=== PATIENT | male | born 1945 | race Caucasian/White ===

== ENCOUNTER 2018-10-18 14:04 | Inpatient (IN) | payer MEDICARE ==
[2018-10-18] MEDS ORDERED: NORMAL SALINE 1000 ML 1,000 ML IV ONE (14:36)
--- NOTE | 2018-10-18 14:48 | ER Document Report ---
ED General - General Chief Complaint: Rectal Bleeding Stated Complaint: ANAL BLEEDING/POST COLONOSCOPY Time Seen by Provider: 10/18/18 14:11 Notes: 72-year-old male presents to the ER with bright red blood per rectum. The patient had a colonoscopy on Saturday by Dr. Amato. The patient was doing fine and restarted his Pradaxa for his A. fib on he began bleeding last night. He has seen his GI doctor and was sent here. The patient denies any abdominal pain. Denies chest pain denies shortness of breath. States she has had several bowel months of bright red blood per rectum. He denies dizziness nausea or weakness at this time. TRAVEL OUTSIDE OF THE [place] IN LAST 30 DAYS: No - Related Data Allergies/Adverse Reactions: No Known Allergies Allergy (Verified 10/18/18 14:05) Past Medical History - Social History Smoking Status: Unknown if Ever Smoked Family History: None Review of Systems - Review of Systems Constitutional: denies: Chills, Fever Cardiovascular: denies: Chest pain Respiratory: denies: Short of breath Gastrointestinal: Rectal bleeding. denies: Abdominal pain Genitourinary: denies: Dysuria, Hematuria -: Yes All other systems reviewed and negative Physical Exam - Vital signs Vitals: Temp Pulse Resp BP Pulse Ox 98.0 F 88 16 143/72 H 96 10/18/18 14:14 10/18/18 14:14 10/18/18 14:14 10/18/18 14:14 10/18/18 14:14 - Notes Notes: GENERAL_APPEARANCE: well_nourished, alert, cooperative VITALS: reviewed, see vital signs table. HEAD: no_swelling\tenderness on the head. EYES: PERRL, EOMI, conjunctiva_clear. NOSE: no_nasal_discharge. MOUTH: (-)decreased moisture. THROAT: no_throat inflammation, no_airway_obstruction. no_lymphadenopathy NECK: supple, no_neck_tenderness, (-)thyromegaly. BACK: no_back_tenderness. CHEST_WALL: no_chest_tenderness. LUNGS: no_wheezing, no_rales, no_rhonchi, (-)accessory muscle use, good air exchange bilateral. HEART: normal_rate, normal_rhythm, normal_S1, normal_S2, (-)S3, (-)S4, no_ murmur, no_rub. ABDOMEN: normal_BS, soft, no_abd_tenderness, (-)guarding, (-)rebound, no_ organomegaly, no_abd_masses. RECTAL: There is bright red blood noted on the patient's underwear and around the rectum no internal exam done EXTREMITIES: good pulses in all_extremities, no_swelling\tenderness in the extremities, no_edema. SKIN: warm, dry, good_color, no_rash. MENTAL_STATUS: speech_clear, oriented_X_3, normal_affect, responds_ appropriately to questions. Course - Re-evaluation Re-evalutation: 10/18/18 14:48 72-year-old male who presents with a post polypectomy bleeding. Patient has restarted his Pradaxa. Dr. Moore has called and spoke with Dr. Cortez the surgical list. Patient has arrived here we will give the patient a liter of IV fluid type and screen and check his hemoglobin I will call Dr. Cortez for further instructions. 10/18/18 15:50 Hemoglobin is stable I spoke with Dr. Cortez surgery. He will admit the patient to the hospital. Currently the patient is hemodynamically stable we will continue to monitor and trend his hemoglobins. - Vital Signs Vital signs: Temp Pulse Resp BP Pulse Ox 98.0 F 88 16 143/72 H 96 10/18/18 14:14 10/18/18 14:14 10/18/18 14:14 10/18/18 14:14 10/18/18 14:14 - Laboratory Result Diagrams: 10/18/18 14:58 10/18/18 14:58 Laboratory results interpreted by me: 10/18/18 10/18/18 10/18/18 14:58 14:58 14:58 RDW 14.6 H PT 19.0 H BUN 23 H Est GFR (Non-Af Amer) 58 L Discharge - Discharge Clinical Impression: Lower GI bleeding Condition: Fair Disposition: ADMITTED INPATIENT Admitting Provider: Surgicalist Unit Admitted: Surgical Floor Referrals: LORE CRAVEN MD [Primary Care Provider] - Follow up as needed
[2018-10-18 15:13] LABS: ABSOLUTE BASOPHILS # (AUTO) 0.1 10^3/uL (0.0-0.2); ABSOLUTE EOSINOPHILS # (AUTO) 0.1 10^3/uL (0.0-0.6); ABSOLUTE LYMPHOCYTES (AUTO) 1.7 10^3/uL (0.5-4.7); ABSOLUTE MONOCYTES (AUTO) 0.8 10^3/uL (0.1-1.4); ABSOLUTE NEUT (AUTO) 6.5 10^3/uL (1.7-8.2); BASOPHILS % (AUTO) 1.1 % (0-2); EOSINOPHILS % (AUTO) 1.2 % (0-6); HEMATOCRIT 45.5 % (37.9-51.0); HEMOGLOBIN 15.5 g/dL (13.5-17.0); LYMPHOCYTES % (AUTO) 18.7 % (13-45); MEAN CORPUSCULAR HEMOGLOBIN 30.4 pg (27.0-33.4); MEAN CORPUSCULAR HGB CONC 34.1 g/dL (32.0-36.0); MEAN CORPUSCULAR VOLUME 89 fl (80-97); MONOCYTES % (AUTO) 8.3 % (3-13); PLATELET COUNT 265 10^3/uL (150-450); RED CELL DISTRIBUTION WIDTH 14.6 % (11.5-14.0); SEGMENTED NEUTROPHILS % (AUTO) 70.7 % (42-78); TOTAL CELLS COUNTED % (AUTO) 100 %; WHITE BLOOD COUNT 9.2 10^3/uL (4.0-10.5)
[2018-10-18 15:19] LABS: INTERNATIONAL RATION (INR) 1.52
[2018-10-18 15:32] LABS: ALANINE AMINOTRANSFERASE 21 U/L (21-72); ALBUMIN 3.9 g/dL (3.5-5.0); ALKALINE PHOSPHATASE 70 U/L (38-126); ANION GAP 9 (5-19); ASPARTATE AMINO TRANSFERASE 21 U/L (17-59); BILIRUBIN,DIRECT 0.3 mg/dL (0.0-0.4); BILIRUBIN,TOTAL 0.9 mg/dL (0.2-1.3); BLOOD UREA NITROGEN 23 mg/dL (7-20); CALCIUM 9.4 mg/dL (8.4-10.2); CARBON DIOXIDE 29 mmol/L (22-30); CHLORIDE 105 mmol/L (98-107); GLUCOSE 103 mg/dL (75-110); POTASSIUM 4.5 mmol/L (3.6-5.0); SODIUM 142.7 mmol/L (137-145)
--- NOTE | 2018-10-18 15:33 | RADIOLOGY REPORT (SQ) ---
EXAM DESCRIPTION: ACUTE ABDOMEN SERIES COMPLETED DATE/TIME: 10/18/2018 3:21 pm REASON FOR STUDY: post op bleeding colonscopy COMPARISON: None. NUMBER OF VIEWS: Three views. TECHNIQUE: Frontal chest, supine abdomen and upright/decubitus abdomen radiographic images acquired. LIMITATIONS: None. FINDINGS: CHEST: Lungs clear of infiltrates. FREE AIR: None. No abnormal gas collections. BOWEL GAS PATTERN: Nonobstructive pattern. No dilated loops or air fluid levels. CALCIFICATIONS: No suspicious calcifications. HARDWARE: None in the abdomen. SOFT TISSUES: No gross mass or suggestion of organomegaly. BONES: No acute fracture. No worrisome bone lesions. OTHER: No other significant finding. IMPRESSION: NO RADIOGRAPHIC EVIDENCE FOR ACUTE ABDOMINAL DISEASE. TECHNICAL DOCUMENTATION: JOB ID: [id number] [employer]- All Rights Reserved Reading location - IP/workstation name: [email or web address]
[2018-10-18] MEDS ORDERED: DEXTROSE 50%-WATER 25 GM/50 ML DISP.SYRIN IV PRN ×2 (16:27)
[2018-10-18] MEDS ORDERED: GLUCAGON,HUMAN RECOMB 1 MG INJ SUBCUT PRN (16:27)
[2018-10-18] MEDS ORDERED: DEXTROSE 40% GEL 15 GM TUBE PO PRN ×2 (16:27)
[2018-10-18] MEDS ORDERED: NORMAL SALINE 1000 ML 1,000 ML IV PRN (16:27)
--- NOTE | 2018-10-18 16:46 | PDOC H&P ---
History of Present Illness Admission Date/PCP: 10/18/18 16:18 LORE CRAVEN MD Patient complains of: Profuse rectal bleeding status post colonoscopy. History of Present Illness: STAN SANCHEZ is a 72 year old male who is status post colonoscopy on Saturday of this past week. The patient takes Pradaxa for atrial fibrillation. The patient restarted his Pradaxa on . The patient reports a sense of fecal urgency this morning, followed by multiple, large, bloody bowel movements. The patient denies abdominal pain, nausea, vomiting, blurry vision, chest pain, shortness of breath. He does report malaise, orthostasis, fatigue, and hematochezia. The patient has had approximately 5 bloody bowel movements today. He reports they are a very large volume. Past Medical History Cardiac Medical History: Reports: Atrial Fibrillation Denies: Myocardial Infarction, Pulmonary Embolism Pulmonary Medical History: Reports: None EENT Medical History: Reports: None Neurological Medical History: Reports: None Endocrine Medical History: Reports: None Renal/ Medical History: Reports: None Malignancy Medical History: Reports: None GI Medical History: Reports: None Musculoskeltal Medical History: Reports: None Skin Medical History: Reports: None Psychiatric Medical History: Reports: None Traumatic Medical History: Reports: None Hematology: Reports: None Infectious Medical History: Reports: None Past Surgical History Past Surgical History: Reports: Other - Recent colonoscopy with polypectomy. Social History Smoking Status: Former Smoker Last Time Smoked: 27 years ago Frequency of Alcohol Use: None Drugs: None Hx Prescription Drug Abuse: No Family History Family History: None Parental Family History Reviewed: Yes Children Family History Reviewed: Yes Sibling(s) Family History Reviewed.: Yes Medication/Allergy Allergies/Adverse Reactions: No Known Allergies Allergy (Verified 10/18/18 14:05) Review of Systems Constitutional: PRESENT: fatigue, weakness. ABSENT: anorexia, chills, fever(s) Eyes: ABSENT: visual disturbances Ears: ABSENT: hearing changes Nose, Mouth, and Throat: ABSENT: sore throat Cardiovascular: ABSENT: chest pain, orthropnea, palpitations Respiratory: ABSENT: cough, dyspnea Gastrointestinal: PRESENT: hematochezia - Large volume. ABSENT: abdominal pain , nausea, vomiting Genitourinary: ABSENT: hematuria Musculoskeletal: ABSENT: back pain Integumentary: ABSENT: pruritus, rash Neurological: ABSENT: confusion, convulsions, memory loss Psychiatric: ABSENT: anxiety, depression Endocrine: ABSENT: cold intolerance, heat intolerance Hematologic/Lymphatic: PRESENT: easy bleeding, easy bruising Physical Exam Vital Signs: Temp Pulse Resp BP Pulse Ox 98.0 F 88 19 142/96 H 98 10/18/18 14:14 10/18/18 14:14 10/18/18 16:01 10/18/18 16:01 10/18/18 16:01 General appearance: PRESENT: obese Head exam: PRESENT: atraumatic, normocephalic Eye exam: PRESENT: EOMI, PERRLA. ABSENT: scleral icterus Mouth exam: PRESENT: moist, neck supple Neck exam: ABSENT: meningismus, tenderness, thyromegaly, tracheal deviation Respiratory exam: PRESENT: clear to auscultation darlene, unlabored. ABSENT: chest wall tenderness, retraction, rhonchi, tachypnea, wheezes Cardiovascular exam: PRESENT: irregular rhythm Pulses: PRESENT: normal radial pulses Vascular exam: PRESENT: pallor GI/Abdominal exam: PRESENT: soft. ABSENT: distended, rebound, rigid, tenderness Rectal exam: PRESENT: deferred Extremities exam: ABSENT: clubbing Musculoskeletal exam: ABSENT: deformity Neurological exam: PRESENT: alert, awake, oriented to person, oriented to place , oriented to time, oriented to situation, CN II-XII grossly intact Psychiatric exam: ABSENT: agitated, anxious, depressed Skin exam: ABSENT: cyanosis, erythema, jaundice Results Impressions: Acute Abdomen Series 10/18/18 14:35 IMPRESSION: NO RADIOGRAPHIC EVIDENCE FOR ACUTE ABDOMINAL DISEASE. Assessment & Plan - Diagnosis (1) Lower GI bleeding Is this a current diagnosis for this admission?: Yes - Plan Summary Plan Summary: This is a 72-year-old male with lower GI bleeding status post colonoscopy with polypectomy several days ago. The patient is currently on Pradaxa. I will hold his Pradaxa. This hospital does not keep the Pradaxa reversal agent in stock. I have recommended colonoscopy with possible intervention to halt his bleeding. If this is not successful, it is possible that the patient may require laparotomy with colon resection. This has been discussed with the patient at length. He and his are in agreement with the treatment plan. Risks/benefits discussed, informed consent obtained, and all questions answered.
[2018-10-18] MEDS ORDERED: PROPOFOL INJ 200 MG/20 ML VIAL IV ONE ×3 (17:09→18:27)
[2018-10-18] MEDS ORDERED: MESALAMINE 400 MG CAPSULE.DR PO ONE (21:00)
[2018-10-19 04:49] LABS: ABSOLUTE BASOPHILS # (AUTO) 0.1 10^3/uL (0.0-0.2); ABSOLUTE EOSINOPHILS # (AUTO) 0.1 10^3/uL (0.0-0.6); ABSOLUTE LYMPHOCYTES (AUTO) 1.2 10^3/uL (0.5-4.7); ABSOLUTE MONOCYTES (AUTO) 0.9 10^3/uL (0.1-1.4); ABSOLUTE NEUT (AUTO) 9.5 10^3/uL (1.7-8.2); BASOPHILS % (AUTO) 0.7 % (0-2); EOSINOPHILS % (AUTO) 0.6 % (0-6); HEMATOCRIT 42.1 % (37.9-51.0); HEMOGLOBIN 14.4 g/dL (13.5-17.0); LYMPHOCYTES % (AUTO) 9.9 % (13-45); MEAN CORPUSCULAR HEMOGLOBIN 30.3 pg (27.0-33.4); MEAN CORPUSCULAR HGB CONC 34.1 g/dL (32.0-36.0); MEAN CORPUSCULAR VOLUME 89 fl (80-97); MONOCYTES % (AUTO) 7.8 % (3-13); PLATELET COUNT 220 10^3/uL (150-450); RED BLOOD COUNT 4.74 10^6/uL (4.35-5.55); RED CELL DISTRIBUTION WIDTH 14.3 % (11.5-14.0); TOTAL CELLS COUNTED % (AUTO) 100 %; WHITE BLOOD COUNT 11.7 10^3/uL (4.0-10.5)
[2018-10-19 05:21] LABS: ALANINE AMINOTRANSFERASE 18 U/L (21-72); ALBUMIN 3.3 g/dL (3.5-5.0); ALKALINE PHOSPHATASE 65 U/L (38-126); ANION GAP 12 (5-19); ASPARTATE AMINO TRANSFERASE 16 U/L (17-59); BILIRUBIN,DIRECT 0.4 mg/dL (0.0-0.4); BILIRUBIN,TOTAL 1.4 mg/dL (0.2-1.3); BLOOD UREA NITROGEN 17 mg/dL (7-20); CARBON DIOXIDE 23 mmol/L (22-30); CHLORIDE 107 mmol/L (98-107); GLUCOSE 103 mg/dL (75-110); POTASSIUM 3.8 mmol/L (3.6-5.0); SODIUM 141.8 mmol/L (137-145); TOTAL PROTEIN 6.2 g/dL (6.3-8.2)
[2018-10-19] MEDS ORDERED: MESALAMINE 400 MG CAPSULE.DR PO SCH (10:00)
--- NOTE | 2018-10-19 12:31 | Operative Report ---
Nonrecallable Operative Report DATE OF SURGERY: 10/18/18 PREOPERATIVE DIAGNOSIS: Bleeding status post polypectomy 3 days ago POSTOPERATIVE DIAGNOSIS: Bleeding polypectomy site at approximately the hepatic flexure. OPERATION: 1. Colonoscopy to the cecum. 2. Cauterization of bleeding at polypectomy site. 3. Resolution clip placement x3 at bleeding polypectomy site. SURGEON: HIRO ARREDONDO ANESTHESIA: LMAC COMPLICATIONS: None apparent ESTIMATED BLOOD LOSS: Large amount of old blood in the colon PROCEDURE: Procedure in detail: After informed consent was obtained, the patient was brought to the operating room and laid in the left lateral decubitus position. The endoscope was inserted in the rectum. Immediately there was noted to be a large amount of old blood within the rectum. The scope was passed up the rectum , sigmoid colon, descending colon, across the transverse colon, down the ascending colon, and into the cecum. Usual landmarks could not be identified due to the large amount of blood and stool. The scope was then withdrawn, circumferentially noting the mucosa. At approximately the hepatic flexure a large clot was identified with active bleeding at the base. The clot was removed via irrigation and manual dislodgment. The previous polypectomy site at the hepatic flexure was bleeding at the base. The base was cauterized. Resolution clips were used x3 across the polypectomy site. This halted the bleeding. The scope was then withdrawn down the transverse colon, descending colon, sigmoid colon, and into the rectum. No other bleeding sites could be identified. The scope was removed, and the procedure was concluded. All sponge , instrument, and needle counts were correct x2. Condition: Stable.
[2018-10-19 16:05] VITALS: BP 139/72
--- NOTE | 2018-10-19 16:15 | PDOC DISCHARGE SUMMARY ---
General - Admit/Disc Date/PCP Admission Date/Primary Care Provider: 10/18/18 16:18 LORE CRAVEN MD Discharge Date: 10/19/18 - Discharge Diagnosis (1) Lower GI bleeding Is this a current diagnosis for this admission?: Yes - Additional Information Resuscitation Status: Full Code Discharge Activity: Balance Activity w/Rest Home Medications: Ascorbic Acid [Vitamin C 500 mg Tablet] 500 mg PO DAILY 10/19/18 Aspirin [Ecotrin 81 mg EC Tablet] 81 mg PO DAILY 10/19/18 Atorvastatin Calcium [Lipitor 20 mg Tablet] 20 mg PO QHS 10/19/18 Cartilage/Collagen/Bor/Hyalur [Move Free Ultra Tablet] 2 each PO DAILY 10/19/18 Cetirizine HCl [Aller-Benton] 1 tab PO DAILY 10/19/18 Cholecalciferol (Vitamin D3) [Vitamin D3 1000 Unit Tablet] 1,000 unit PO DAILY 10/19/18 Dabigatran Etexilate Mesylate [Pradaxa 150 mg Capsule] 150 mg PO Q12 10/19/18 Finasteride [Proscar] 5 mg PO DAILY 10/19/18 Flaxseed Oil [Flax Seed Oil] 1,000 mg PO DAILY 10/19/18 Fluticasone Propionate [Flonase Nasal [place] 50 Mcg/[place] 16 gm] 2 sprays NASL DAILY 10/19/18 Hydrocodone/Acetaminophen [[place] 10-325 mg Tablet] 1 tab PO DAILY 10/19/18 Losartan/Hydrochlorothiazide [Hyzaar 100-12.5 Tablet] 1 each PO DAILY 10/19/18 Melatonin/Pyridoxine HCl (B6) [Melatonin 10 mg Tablet] 1 each PO QHS 10/19/18 Multivitamin [Multiple Vitamins] 1 each PO DAILY 10/19/18 [place]-3 Fatty Acids/Fish Oil [Fish Oil 1,000 Mg Capsule] 4 each PO DAILY Omeprazole 40 mg PO DAILY 10/19/18 Tamsulosin HCl [Flomax 0.4 mg Cap.sr] 0.4 mg PO DAILY 10/19/18 History of Present Illness History of Present Illness: STAN SANCHEZ is a 72 year old male who is status post colonoscopy on Saturday of this past week. The patient takes Pradaxa for atrial fibrillation. The patient restarted his Pradaxa on . The patient reports a sense of fecal urgency Saturday morning, followed by multiple, large, bloody bowel movements. The patient denies abdominal pain, nausea, vomiting, blurry vision, chest pain, shortness of breath. He does report malaise, orthostasis, fatigue, and hematochezia. The patient has had approximately 5 bloody bowel movements on Saturday. He reports they are a very large volume. Hospital Course Hospital Course: The patient was taken to the operating room for colonoscopy with cessation of bleeding. The patient was found to have a bleeding polypectomy site at approximately the level of the hepatic flexure. The bleeding was successfully stopped. The patient did very well after the procedure. On postprocedure day # 1 the patient began tolerating a diet, ambulating, and his bleeding per rectum completely stopped. By 10/19/2018 the patient was stable, had reached maximal hospital benefit, and deemed medically fit for discharge. Physical Exam Vital Signs: Temp Pulse Resp BP Pulse Ox 97.5 F 67 18 139/72 H 98 10/19/18 15:27 10/19/18 15:27 10/19/18 15:27 10/19/18 15:27 10/19/18 15:27 Intake & Output 10/18/18 10/19/18 10/20/18 06:59 06:59 06:59 Intake Total 3050 250 Balance 3050 250 Weight 142 kg Results Laboratory Results: 10/19/18 04:00 10/19/18 04:00 10/19/18 10/19/18 04:00 04:00 WBC 11.7 H RBC 4.74 Hgb 14.4 Hct 42.1 MCV 89 MCH 30.3 MCHC 34.1 RDW 14.3 H Plt Count 220 Seg Neutrophils % 81.0 H Lymphocytes % 9.9 L Monocytes % 7.8 Eosinophils % 0.6 Basophils % 0.7 Absolute Neutrophils 9.5 H Absolute Lymphocytes 1.2 Absolute Monocytes 0.9 Absolute Eosinophils 0.1 Absolute Basophils 0.1 Sodium 141.8 Potassium 3.8 Chloride 107 Carbon Dioxide 23 Anion Gap 12 BUN 17 Creatinine 1.08 Est GFR ( Amer) > 60 Est GFR (Non-Af Amer) > 60 Glucose 103 Calcium 9.0 Total Bilirubin 1.4 H AST 16 L ALT 18 L Alkaline Phosphatase 65 Total Protein 6.2 L Albumin 3.3 L Impressions: Acute Abdomen Series 10/18/18 14:35 IMPRESSION: NO RADIOGRAPHIC EVIDENCE FOR ACUTE ABDOMINAL DISEASE. Qualifiers - * PATIENT BEING DISCHARGED WITH ANY OF THE FOLLOWING DIAGNOSIS: No Plan Time Spent: Less than 30 Minutes
[2018-10-19] MEDS ORDERED: MELATONIN PO SCH (22:00)
[2018-10-19] MEDS ORDERED: PYRIDOXINE HCL PO SCH (22:00)
[2018-10-19] MEDS ORDERED: MELATONIN 5 MG TABLET PO SCH ×2 (22:00)
[2018-10-19] MEDS ORDERED: ATORVASTATIN CALCIUM 20 MG TABLET PO SCH (22:00)
[2018-10-20] MEDS ORDERED: LANSOPRAZOLE 30 MG TAB.RAP.DR PO SCH (06:00)
[2018-10-20] MEDS ORDERED: FLUTICASONE NASAL SPRAY 50 MCG/SPRY 120 SPRAY/16 GM NASL SCH (10:00)
[2018-10-20] MEDS ORDERED: FATTY ACIDS PO SCH (10:00)
[2018-10-20] MEDS ORDERED: OMEGA-3 ACID ETHYL ESTERS 1 GM CAPSULE PO SCH (10:00)
[2018-10-20] MEDS ORDERED: FISH OIL PO SCH (10:00)
[2018-10-20] MEDS ORDERED: ASCORBIC ACID 500 MG TABLET PO SCH (10:00)
[2018-10-20] MEDS ORDERED: OMEGA PO SCH (10:00)
[2018-10-20] MEDS ORDERED: HYDROCHLOROTHIAZIDE 12.5 MG TABLET PO SCH (10:00)
[2018-10-20] MEDS ORDERED: LOSARTAN POTASSIUM 50 MG TABLET PO SCH (10:00)
[2018-10-20] MEDS ORDERED: (PENDING PHARMACY ID) (Losartan/Hydrochlorothiazide [Hyzaar 100-12.5 Tablet] 1 EACH) PO SCH (10:00)
[2018-10-20] MEDS ORDERED: TAMSULOSIN HCL 0.4 MG CAP.SR.24H PO SCH (10:00)
[2018-10-20] MEDS ORDERED: [UNRECOGNIZED DRUG - REMARK] PO SCH (10:00)
[2018-10-20] MEDS ORDERED: (PENDING PHARMACY ID) (Flaxseed Oil [Flax Seed Oil] 1,000 MG) PO SCH (10:00)
[2018-10-20] MEDS ORDERED: CHOLECALCIFEROL (D3) 1,000 UNIT TABLET PO SCH (10:00)
[2018-10-20] MEDS ORDERED: HYDROCODONE/ACETAMINOPHEN 10-325 MG TABLET PO SCH (10:00)
[2018-10-20] MEDS ORDERED: MULTIVITAMIN TABLET PO SCH (10:00)
[2018-10-20] MEDS ORDERED: CETIRIZINE 10 MG TABLET PO SCH (10:00)
[2018-10-20] MEDS ORDERED: FINASTERIDE 5 MG TABLET PO SCH (10:00)
== END 2018-10-19 16:58 | disposition home or self-care (01) | DRG 920 ==
LOC: ER 14:04 → EH 16:18 → 5 19:15
PROVIDERS: ADMIT Surgery; ATTEND Surgery
PROC: 0W3P8ZZ Control Bleeding in Gastrointestinal Tract, Via Natural or Artificial Opening Endoscopic (ICD-10-PCS; principal; 2018-10-18 18:00)
DX: K91.840 Postprocedural hemorrhage of a digestive system organ or structure following a digestive system procedure (principal); D68.32 Hemorrhagic disorder due to extrinsic circulating anticoagulants; T45.515A Adverse effect of anticoagulants, initial encounter; I48.91 Unspecified atrial fibrillation; Z79.01 Long term (current) use of anticoagulants; Z79.82 Long term (current) use of aspirin; Z79.899 Other long term (current) drug therapy; Z87.891 Personal history of nicotine dependence
CPT/HCPCS: 36415; 45382; 74022; 80053; 811; 85025; 85610; 86850; 86900; 86901; 86920; 94660; 96360; 96361; 99285; J2704; J7030

== ENCOUNTER 2018-12-25 05:31 | Inpatient (IN) | payer MEDICARE ==
[2018-12-18 10:59] LABS: HEMATOCRIT 48.4 % (37.9-51.0); HEMOGLOBIN 16.3 g/dL (13.5-17.0); MEAN CORPUSCULAR HEMOGLOBIN 29.7 pg (27.0-33.4); MEAN CORPUSCULAR HGB CONC 33.7 g/dL (32.0-36.0); MEAN CORPUSCULAR VOLUME 88 fl (80-97); PLATELET COUNT 235 10^3/uL (150-450); RED CELL DISTRIBUTION WIDTH 14.3 % (11.5-14.0); WHITE BLOOD COUNT 6.3 10^3/uL (4.0-10.5)
--- NOTE | 2018-12-18 11:21 | RADIOLOGY REPORT (SQ) ---
EXAM DESCRIPTION: CHEST PA/LATERAL COMPLETED DATE/TIME: 12/18/2018 11:04 am REASON FOR STUDY: PRE-OP COMPARISON: None. EXAM PARAMETERS: NUMBER OF VIEWS: two views TECHNIQUE: Digital Frontal and Lateral radiographic views of the chest acquired. RADIATION DOSE: NA LIMITATIONS: none FINDINGS: LUNGS AND PLEURA: No opacities, masses or pneumothorax. No pleural effusion. MEDIASTINUM AND HILAR STRUCTURES: No masses or contour abnormalities. HEART AND VASCULAR STRUCTURES: Heart normal size. No evidence for failure. BONES: No acute findings. HARDWARE: None in the chest. OTHER: No other significant finding. IMPRESSION: NO SIGNIFICANT RADIOGRAPHIC FINDING IN THE CHEST. TECHNICAL DOCUMENTATION: JOB ID: [id number] [employer]- All Rights Reserved Reading location - IP/workstation name: [email or web address]
[2018-12-18 11:28] LABS: ANION GAP 7 (5-19); BLOOD UREA NITROGEN 14 mg/dL (7-20); CALCIUM 9.6 mg/dL (8.4-10.2); CARBON DIOXIDE 29 mmol/L (22-30); CHLORIDE 103 mmol/L (98-107); GLUCOSE 131 mg/dL (75-110); SODIUM 138.9 mmol/L (137-145)
--- NOTE | 2018-12-18 23:06 | EKG REPORT ---
SEVERITY:- ABNORMAL ECG - ATRIAL FIBRILLATION, V-RATE 51-89 : Confirmed by: David Yu 18-Dec-2018 23:04:53
[~2018-12-25 05:31] MED LIST: CEFAZOLIN 2 GM/D5W RTU 2 GM/50 ML RTUPB IV PRN; CEFOXITIN SODIUM 2 GM in DEXTROSE 5%-WATER 100 ML IV PRN; IBUPROFEN 800 MG in NORMAL SALINE 250 ML IV PRN; LACTATED RINGERS 1000 ML IV PRN; LIDOCAINE 0.5% INJ-PF (5 MG/ML) 50 ML SDV SUBCUT PRN
[2018-12-25] MEDS ORDERED: CEFOXITIN INJ 1 GM VIAL ONE (05:51)
[2018-12-25 06:21] LABS: INTERNATIONAL RATION (INR) 1.26; PROTHROMBIN TIME 16.4 SEC (11.4-15.4)
[2018-12-25 06:22] LABS: PARTIAL THROMBOPLASTIN TIME 32.4 SEC (23.5-35.8)
[2018-12-25] MEDS ORDERED: BUPIVACAINE HCL 0.25 % INJ/PF (2.5 MG/1 ML) 30 ML VIAL ONE (06:24)
[2018-12-25] MEDS ORDERED: PROPOFOL INJ 200 MG/20 ML VIAL IV ONE (07:12)
[2018-12-25] MEDS ORDERED: MIDAZOLAM 2 MG/2 ML INJ ONE (07:12)
[2018-12-25] MEDS ORDERED: DEXAMETHASONE SOD PHOSPHATE INJ 4 MG/1 ML VIAL ONE (07:12)
[2018-12-25] MEDS ORDERED: LIDOCAINE 2% INJ-PF (20 MG/ML) 10 ML AMPUL ONE (07:12)
[2018-12-25] MEDS ORDERED: HYDROMORPHONE HCL INJ/PF 2 MG/ML AMPULE ONE ×3 (07:12→11:57)
[2018-12-25] MEDS ORDERED: FENTANYL CITRATE INJ/PF 250 MCG/5 ML AMPULE ONE ×2 (07:12→09:01)
[2018-12-25] MEDS ORDERED: EPHEDRINE SULFATE INJ 50 MG/1 ML AMPULE ONE (07:12)
[2018-12-25] MEDS ORDERED: ONDANSETRON HCL INJ/PF 4 MG/2 ML SDV ONE (07:12)
[2018-12-25] MEDS ORDERED: ACETAMINOPHEN 1,000 MG/100 ML RTUPB IV ONE (07:13)
[2018-12-25 07:22] LABS: POTASSIUM 4.2 mmol/L (3.6-5.0)
[2018-12-25] MEDS ORDERED: ESMOLOL HCL INJ/PF 100 MG/10 ML SDV IV ONE (08:31)
[2018-12-25] MEDS ORDERED: METOPROLOL TARTRATE PF/INJ 5 MG/5 ML SDV IV ONE ×2 (08:32→09:01)
[2018-12-25] MEDS ORDERED: LABETALOL HCL INJ 20 MG/4 ML DISP.SYRIN IV ONE (09:01)
[2018-12-25] MEDS ORDERED: BUPIVACAINE INJ/PF LIPOSOME/PF 266 MG/20 ML SDV ONE (09:19)
[2018-12-25] MEDS ORDERED: OXYCODONE-ACETAMINOPHEN 5-325 MG TABLET PO PRN ×2 (09:51)
[2018-12-25] MEDS ORDERED: PROMETHAZINE HCL INJ 25 MG/1 ML VIAL IV PRN ×2 (09:51)
[2018-12-25] MEDS ORDERED: MORPHINE SULFATE 10 MG/ML INJ IV PRN (09:51)
[2018-12-25] MEDS ORDERED: FENTANYL CITRATE INJ/PF 100 MCG/2 ML AMPUL IV PRN ×3 (09:51)
[2018-12-25] MEDS ORDERED: DIPHENHYDRAMINE HCL 50 MG/ML VIAL IV PRN (09:51)
[2018-12-25] MEDS ORDERED: ONDANSETRON HCL INJ/PF 4 MG/2 ML SDV IV PRN (09:51)
[2018-12-25] MEDS ORDERED: MEPERIDINE HCL/PF INJ 25 MG/1 ML DISP.SYRIN IV PRN (09:51)
[2018-12-25] MEDS: FENTANYL CITRATE INJ/PF 100 MCG/2 ML AMPUL ONE ×4 (11:18→11:38)
[2018-12-25] MEDS ORDERED: VECURONIUM BROMIDE INJ 10 MG VIAL IV ONE ×2 (13:42→13:46)
[2018-12-25] MEDS ORDERED: GLYCOPYRROLATE 1 MG/5 ML SYRINGE ONE ×2 (13:42→13:46)
[2018-12-25] MEDS ORDERED: SUCCINYLCHOLINE CHLORIDE INJ 200 MG/10 ML VIAL ONE (13:46)
[2018-12-25] MEDS ORDERED: NEOSTIGMINE METHYLSULFATE 10 MG/10 ML VIAL ONE (13:46)
[2018-12-25] MEDS: DEXTROSE 5%-LACTATED RINGERS 1,000 ML IV PRN (14:47)
[2018-12-25] MEDS ORDERED: CEFOXITIN SODIUM 2 GM in DEXTROSE 5%-WATER 100 ML IV SCH (16:00)
[2018-12-25] MEDS: MORPHINE SULFATE 60 MG/60 ML RTUINJ IV PRN (16:08)
[2018-12-25] MEDS: METOPROLOL TARTRATE PF/INJ 5 MG/5 ML SDV IV SCH ×2 (17:37→22:24)
[2018-12-25] MEDS: KETOROLAC TROMETHAMINE INJ/PF 30 MG/1 ML SDV IV SCH ×2 (17:38→22:24)
[2018-12-25] MEDS: ONDANSETRON HCL INJ/PF 4 MG/2 ML SDV IV PRN (20:26)
[2018-12-25] MEDS: FAMOTIDINE INJ/PF 20 MG/2 ML SDV IV SCH (22:24)
[2018-12-26] MEDS: DEXTROSE 5%-LACTATED RINGERS 1,000 ML IV PRN (01:14)
[2018-12-26] MEDS: MORPHINE SULFATE 60 MG/60 ML RTUINJ IV PRN (01:34)
[2018-12-26 05:22] LABS: ABSOLUTE LYMPHOCYTES (AUTO) 1.1 10^3/uL (0.5-4.7); ABSOLUTE MONOCYTES (AUTO) 2.1 10^3/uL (0.1-1.4); ABSOLUTE NEUT (AUTO) 14.5 10^3/uL (1.7-8.2); BASOPHILS % (AUTO) 0.1 % (0-2); HEMATOCRIT 44.2 % (37.9-51.0); HEMOGLOBIN 14.7 g/dL (13.5-17.0); LYMPHOCYTES % (AUTO) 6.2 % (13-45); MEAN CORPUSCULAR HEMOGLOBIN 29.7 pg (27.0-33.4); MEAN CORPUSCULAR HGB CONC 33.4 g/dL (32.0-36.0); MEAN CORPUSCULAR VOLUME 89 fl (80-97); MONOCYTES % (AUTO) 11.6 % (3-13); PLATELET COUNT 252 10^3/uL (150-450); RED BLOOD COUNT 4.96 10^6/uL (4.35-5.55); RED CELL DISTRIBUTION WIDTH 14.5 % (11.5-14.0); SEGMENTED NEUTROPHILS % (AUTO) 82.1 % (42-78); TOTAL CELLS COUNTED % (AUTO) 100 %; WHITE BLOOD COUNT 17.6 10^3/uL (4.0-10.5)
[2018-12-26] MEDS: KETOROLAC TROMETHAMINE INJ/PF 30 MG/1 ML SDV IV SCH (05:32)
[2018-12-26] MEDS: METOPROLOL TARTRATE PF/INJ 5 MG/5 ML SDV IV SCH ×3 (05:33→22:24)
[2018-12-26 05:42] LABS: ALANINE AMINOTRANSFERASE 29 U/L (21-72); ALBUMIN 3.5 g/dL (3.5-5.0); ALKALINE PHOSPHATASE 49 U/L (38-126); ANION GAP 6 (5-19); ASPARTATE AMINO TRANSFERASE 20 U/L (17-59); BILIRUBIN,DIRECT 0.3 mg/dL (0.0-0.4); BILIRUBIN,TOTAL 1.3 mg/dL (0.2-1.3); BLOOD UREA NITROGEN 26 mg/dL (7-20); CALCIUM 8.9 mg/dL (8.4-10.2); CARBON DIOXIDE 28 mmol/L (22-30); CHLORIDE 104 mmol/L (98-107); GLUCOSE 129 mg/dL (75-110); POTASSIUM 4.8 mmol/L (3.6-5.0); SODIUM 137.9 mmol/L (137-145); TOTAL PROTEIN 6.1 g/dL (6.3-8.2)
[2018-12-26] MEDS ORDERED: NORMAL SALINE 1000 ML 500 ML IV ONE (09:00)
[2018-12-26] MEDS ORDERED: CEFOXITIN SODIUM 2 GM in DEXTROSE 5%-WATER 100 ML IV SCH (10:00)
[2018-12-26] MEDS: ENOXAPARIN SODIUM INJ 40 MG/0.4 ML DISP.SYRIN SUBCUT SCH (11:24)
[2018-12-26] MEDS: TAMSULOSIN HCL 0.4 MG CAP.SR.24H PO SCH (11:24)
[2018-12-26] MEDS: FINASTERIDE 5 MG TABLET PO SCH (11:24)
[2018-12-26] MEDS: FAMOTIDINE INJ/PF 20 MG/2 ML SDV IV SCH ×2 (11:24→22:24)
--- NOTE | 2018-12-26 12:38 | PDOC PROGRESS REPORT ---
Subjective Progress Note for:: 12/26/18 Reason For Visit: S/P RIGHT HEMICOLECTOMY FOR COLON CANCER Physical Exam Vital Signs: Temp Pulse Resp BP Pulse Ox 98.5 F 81 16 118/57 L 94 12/26/18 07:47 12/26/18 07:47 12/26/18 07:47 12/26/18 07:47 12/26/18 07:47 Intake & Output 12/25/18 12/26/18 12/27/18 06:59 06:59 06:59 Intake Total 0 7056 Output Total 2540 Balance 0 4516 Weight 149.4 kg Results Laboratory Results: 12/26/18 04:43 12/26/18 04:43 12/26/18 12/26/18 04:43 04:43 WBC 17.6 H RBC 4.96 Hgb 14.7 Hct 44.2 MCV 89 MCH 29.7 MCHC 33.4 RDW 14.5 H Plt Count 252 Seg Neutrophils % 82.1 H Lymphocytes % 6.2 L Monocytes % 11.6 Eosinophils % 0.0 Basophils % 0.1 Absolute Neutrophils 14.5 H Absolute Lymphocytes 1.1 Absolute Monocytes 2.1 H Absolute Eosinophils 0.0 Absolute Basophils 0.0 Sodium 137.9 Potassium 4.8 Chloride 104 Carbon Dioxide 28 Anion Gap 6 BUN 26 H Creatinine 1.34 H Est GFR ( Amer) > 60 Est GFR (Non-Af Amer) 52 L Glucose 129 H Calcium 8.9 Total Bilirubin 1.3 AST 20 ALT 29 Alkaline Phosphatase 49 Total Protein 6.1 L Albumin 3.5 Impressions: Chest X-Ray 12/18/18 10:56 IMPRESSION: NO SIGNIFICANT RADIOGRAPHIC FINDING IN THE CHEST. 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 The patient is doing reasonably well today. He still complains of pain. He has not been out of bed. His urine output is reasonable. He is afebrile. His heart rate is under control. I have encouraged the patient to get out of bed with assistance. I have conveyed this to the nursing staff. Maintain Mcfarland today for strict urine output and inability to mobilize. Creatinine slightly elevated today, will stop Toradol. Continue IV Tylenol for 2 more days. Pulmonary toilet. Lovenox for DVT prophylaxis. Consider restarting anticoagulation tomorrow.
[2018-12-26] MEDS ORDERED: NORMAL SALINE 500 ML IV ONE (18:30)
[2018-12-27] MEDS: MORPHINE SULFATE 10 MG/ML INJ IV PRN ×8 (03:06→20:45)
[2018-12-27] MEDS: ONDANSETRON HCL INJ/PF 4 MG/2 ML SDV IV PRN ×2 (04:28→20:01)
[2018-12-27] MEDS: METOPROLOL TARTRATE PF/INJ 5 MG/5 ML SDV IV SCH ×3 (05:05→21:06)
[2018-12-27 05:29] LABS: ABSOLUTE LYMPHOCYTES (AUTO) 0.9 10^3/uL (0.5-4.7); ABSOLUTE MONOCYTES (AUTO) 1.1 10^3/uL (0.1-1.4); ABSOLUTE NEUT (AUTO) 14.2 10^3/uL (1.7-8.2); BASOPHILS % (AUTO) 0.2 % (0-2); EOSINOPHILS % (AUTO) 0.1 % (0-6); HEMATOCRIT 39.8 % (37.9-51.0); HEMOGLOBIN 13.2 g/dL (13.5-17.0); LYMPHOCYTES % (AUTO) 5.8 % (13-45); MEAN CORPUSCULAR HEMOGLOBIN 29.4 pg (27.0-33.4); MEAN CORPUSCULAR HGB CONC 33.1 g/dL (32.0-36.0); MEAN CORPUSCULAR VOLUME 89 fl (80-97); MONOCYTES % (AUTO) 6.5 % (3-13); PLATELET COUNT 209 10^3/uL (150-450); RED BLOOD COUNT 4.48 10^6/uL (4.35-5.55); RED CELL DISTRIBUTION WIDTH 14.5 % (11.5-14.0); SEGMENTED NEUTROPHILS % (AUTO) 87.4 % (42-78); TOTAL CELLS COUNTED % (AUTO) 100 %; WHITE BLOOD COUNT 16.3 10^3/uL (4.0-10.5)
[2018-12-27 05:51] LABS: ANION GAP 5 (5-19); BLOOD UREA NITROGEN 27 mg/dL (7-20); CALCIUM 8.6 mg/dL (8.4-10.2); CARBON DIOXIDE 29 mmol/L (22-30); CHLORIDE 105 mmol/L (98-107); GLUCOSE 113 mg/dL (75-110); POTASSIUM 4.3 mmol/L (3.6-5.0); SODIUM 139.2 mmol/L (137-145)
[2018-12-27] MEDS: DEXTROSE 5%-LACTATED RINGERS 1,000 ML IV PRN ×2 (07:00→14:55)
[2018-12-27] MEDS: ENOXAPARIN SODIUM INJ 40 MG/0.4 ML DISP.SYRIN SUBCUT SCH (09:52)
[2018-12-27] MEDS: FINASTERIDE 5 MG TABLET PO SCH (09:53)
[2018-12-27] MEDS: TAMSULOSIN HCL 0.4 MG CAP.SR.24H PO SCH (09:53)
[2018-12-27] MEDS: FAMOTIDINE INJ/PF 20 MG/2 ML SDV IV SCH ×2 (09:54→21:06)
[2018-12-27] MEDS ORDERED: DEXTROSE 40% GEL 15 GM TUBE PO PRN ×2 (19:57)
[2018-12-27] MEDS ORDERED: DEXTROSE 50%-WATER 25 GM/50 ML DISP.SYRIN IV PRN ×2 (19:57)
[2018-12-27] MEDS ORDERED: GLUCAGON,HUMAN RECOMB 1 MG INJ SUBCUT PRN (19:57)
--- NOTE | 2018-12-27 20:07 | PDOC PROGRESS REPORT ---
Subjective Reason For Visit: S/P RIGHT HEMICOLECTOMY FOR COLON CANCER Physical Exam Vital Signs: Temp Pulse Resp BP Pulse Ox 97.3 F 103 H 16 143/95 H 98 12/27/18 15:51 12/27/18 15:51 12/27/18 15:51 12/27/18 15:51 12/27/18 15:51 Intake & Output 12/26/18 12/27/18 12/28/18 06:59 06:59 06:59 Intake Total 7056 1800 2102 Output Total 2540 1050 380 Balance 4516 750 1722 Weight 149.4 kg 146 kg Results Laboratory Results: 12/27/18 04:56 12/27/18 04:56 12/27/18 12/27/18 04:56 04:56 WBC 16.3 H RBC 4.48 Hgb 13.2 L Hct 39.8 MCV 89 MCH 29.4 MCHC 33.1 RDW 14.5 H Plt Count 209 Seg Neutrophils % 87.4 H Lymphocytes % 5.8 L Monocytes % 6.5 Eosinophils % 0.1 Basophils % 0.2 Absolute Neutrophils 14.2 H Absolute Lymphocytes 0.9 Absolute Monocytes 1.1 Absolute Eosinophils 0.0 Absolute Basophils 0.0 Sodium 139.2 Potassium 4.3 Chloride 105 Carbon Dioxide 29 Anion Gap 5 BUN 27 H Creatinine 1.11 Est GFR ( Amer) > 60 Est GFR (Non-Af Amer) > 60 Glucose 113 H Calcium 8.6 Impressions: Chest X-Ray 12/18/18 10:56 IMPRESSION: NO SIGNIFICANT RADIOGRAPHIC FINDING IN THE CHEST. 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 The patient reports "heartburn" and mild nausea today. The patient denies any flatus yet. I will make him n.p.o. and await bowel function. C ontinue IV fluids. RAG WASHER was discontinued yesterday due to somnolence and low saturations. The patient's level of alertness and pulmonary toilet are much improved today. Continue as needed morphine. Out of bed, ambulate with assistance, aggressive pulmonary toilet. Repeat labs tomorrow. Chest x-ray tomorrow.
[2018-12-28] MEDS: MORPHINE SULFATE 10 MG/ML INJ IV PRN ×6 (02:11→23:00)
[2018-12-28] MEDS: DEXTROSE 5%-LACTATED RINGERS 1,000 ML IV PRN ×3 (04:17→21:11)
[2018-12-28] MEDS: METOPROLOL TARTRATE PF/INJ 5 MG/5 ML SDV IV SCH ×3 (05:27→21:05)
[2018-12-28 05:43] LABS: HEMOGLOBIN 13.5 g/dL (13.5-17.0); MEAN CORPUSCULAR HEMOGLOBIN 29.8 pg (27.0-33.4); MEAN CORPUSCULAR HGB CONC 33.7 g/dL (32.0-36.0); MEAN CORPUSCULAR VOLUME 88 fl (80-97); PLATELET COUNT 246 10^3/uL (150-450); RED BLOOD COUNT 4.52 10^6/uL (4.35-5.55); RED CELL DISTRIBUTION WIDTH 14.4 % (11.5-14.0)
[2018-12-28 06:13] LABS: ANION GAP 6 (5-19); BLOOD UREA NITROGEN 20 mg/dL (7-20); CARBON DIOXIDE 28 mmol/L (22-30); CHLORIDE 105 mmol/L (98-107); GLUCOSE 126 mg/dL (75-110); POTASSIUM 4.3 mmol/L (3.6-5.0); SODIUM 138.5 mmol/L (137-145)
[2018-12-28 06:21] LABS: ABSOLUTE LYMPHOCYTES# (MANUAL) 0.8 10^3/uL (0.5-4.7); ABSOLUTE MONOCYTES # (MANUAL) 0.5 10^3/uL (0.1-1.4); ABSOLUTE NEUTROPHILS# (MANUAL) 10.6 10^3/uL (1.7-8.2); BASOPHILS % (MANUAL) 0 % (0-2); EOSINOPHILS % (MANUAL) 1 % (0-6); LYMPHOCYTES % (MANUAL) 7 % (13-45); MONOCYTES % (MANUAL) 4 % (3-13); PLATELET COMMENT ADEQUATE; RBC MORPHOLOGY COMMENT NORMO-CYTIC/CHROMIC; SEGMENTED NEUTROPHILS % (MAN) 88 % (42-78); TOTAL CELLS COUNTED 100
--- NOTE | 2018-12-28 08:51 | RADIOLOGY REPORT (SQ) ---
EXAM DESCRIPTION: CHEST SINGLE VIEW COMPLETED DATE/TIME: 12/28/2018 8:27 am REASON FOR STUDY: cough, s/p right hemicolectomy COMPARISON: Chest films 10/18/2018, 12/18/2018 CT angio chest 03/14/2010 EXAM PARAMETERS: NUMBER OF VIEWS: One view. TECHNIQUE: Single frontal radiographic view of the chest acquired. RADIATION DOSE: NA LIMITATIONS: None. FINDINGS: LUNGS AND PLEURA: Minimal left retrocardiac airspace disease atelectasis versus pneumonia. Bandlike atelectasis along the right minor fissure. No pleural effusions or pneumothorax. MEDIASTINUM AND HILAR STRUCTURES: No masses. Contour normal. HEART AND VASCULAR STRUCTURES: Heart normal in size. Normal vasculature. BONES: No acute findings. HARDWARE: None in the chest. OTHER: No other significant finding. IMPRESSION: Minimal left retrocardiac airspace disease atelectasis versus pneumonia. TECHNICAL DOCUMENTATION: JOB ID: [id number] [employer]- All Rights Reserved Reading location - IP/workstation name: [email or web address]
[2018-12-28] MEDS: FINASTERIDE 5 MG TABLET PO SCH (11:10)
[2018-12-28] MEDS: ENOXAPARIN SODIUM INJ 40 MG/0.4 ML DISP.SYRIN SUBCUT SCH (11:10)
[2018-12-28] MEDS: TAMSULOSIN HCL 0.4 MG CAP.SR.24H PO SCH (11:10)
[2018-12-28] MEDS: PANTOPRAZOLE SODIUM 40 MG VIAL IV SCH (11:10)
[2018-12-28] MEDS: FAMOTIDINE INJ/PF 20 MG/2 ML SDV IV SCH ×2 (11:10→21:05)
[2018-12-28] MEDS ORDERED: BISACODYL 10 MG SUPP.RECT PR ONE (11:37)
--- NOTE | 2018-12-28 11:37 | PDOC PROGRESS REPORT ---
Subjective Progress Note for:: 12/28/18 Reason For Visit: S/P RIGHT HEMICOLECTOMY FOR COLON CANCER Physical Exam Vital Signs: Temp Pulse Resp BP Pulse Ox 97.7 F 90 16 144/89 H 97 12/28/18 08:26 12/28/18 08:26 12/28/18 08:26 12/28/18 08:26 12/28/18 08:26 Intake & Output 12/27/18 12/28/18 12/29/18 06:59 06:59 06:59 Intake Total 1800 3652 690 Output Total 1050 680 Balance 750 2972 690 Weight 146 kg 149.7 kg Respiratory exam: PRESENT: clear to auscultation darlene, unlabored GI/Abdominal exam: PRESENT: other - abd softly distended wound clean, dry min bowel sounds, no reports of flatus Results Laboratory Results: 12/28/18 05:13 12/28/18 05:13 12/28/18 12/28/18 05:13 05:13 WBC 12.0 H RBC 4.52 Hgb 13.5 Hct 40.0 MCV 88 MCH 29.8 MCHC 33.7 RDW 14.4 H Plt Count 246 Seg Neutrophils % Not Reportable Lymphocytes % Not Reportable Monocytes % Not Reportable Eosinophils % Not Reportable Basophils % Not Reportable Absolute Neutrophils Not Reportable Absolute Lymphocytes Not Reportable Absolute Monocytes Not Reportable Absolute Eosinophils Not Reportable Absolute Basophils Not Reportable Sodium 138.5 Potassium 4.3 Chloride 105 Carbon Dioxide 28 Anion Gap 6 BUN 20 Creatinine 0.94 Est GFR ( Amer) > 60 Est GFR (Non-Af Amer) > 60 Glucose 126 H Calcium 9.0 Impressions: Chest X-Ray 12/28/18 07:00 IMPRESSION: Minimal left retrocardiac airspace disease atelectasis versus pneumonia. 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 sitting up in chair c/o bloating, some nausea, no vomiting wbc down to 12 this am lytes ok cxr question of atelectasis vs early left pnemonia reviwed by me, more c/w atelectasis plan cont npo except sips dulcolax suppositiory encouraged to ambulate with walker explained if he has nausea or vomiting or significant reflux, may need ng tube
[2018-12-28] MEDS: ONDANSETRON HCL INJ/PF 4 MG/2 ML SDV IV PRN (21:11)
[2018-12-29] MEDS: METOPROLOL TARTRATE PF/INJ 5 MG/5 ML SDV IV SCH ×3 (05:09→21:40)
[2018-12-29] MEDS: ONDANSETRON HCL INJ/PF 4 MG/2 ML SDV IV PRN ×5 (05:12→21:40)
[2018-12-29] MEDS: MORPHINE SULFATE 10 MG/ML INJ IV PRN ×4 (05:35→23:48)
[2018-12-29 05:49] LABS: ABSOLUTE LYMPHOCYTES (AUTO) 0.6 10^3/uL (0.5-4.7); ABSOLUTE MONOCYTES (AUTO) 1.6 10^3/uL (0.1-1.4); ABSOLUTE NEUT (AUTO) 8.6 10^3/uL (1.7-8.2); BASOPHILS % (AUTO) 0.2 % (0-2); EOSINOPHILS % (AUTO) 0.2 % (0-6); HEMATOCRIT 40.4 % (37.9-51.0); HEMOGLOBIN 13.9 g/dL (13.5-17.0); LYMPHOCYTES % (AUTO) 5.8 % (13-45); MEAN CORPUSCULAR HEMOGLOBIN 30.2 pg (27.0-33.4); MEAN CORPUSCULAR HGB CONC 34.4 g/dL (32.0-36.0); MEAN CORPUSCULAR VOLUME 88 fl (80-97); MONOCYTES % (AUTO) 14.7 % (3-13); PLATELET COUNT 260 10^3/uL (150-450); RED BLOOD COUNT 4.59 10^6/uL (4.35-5.55); RED CELL DISTRIBUTION WIDTH 14.2 % (11.5-14.0); SEGMENTED NEUTROPHILS % (AUTO) 79.1 % (42-78); TOTAL CELLS COUNTED % (AUTO) 100 %; WHITE BLOOD COUNT 10.9 10^3/uL (4.0-10.5)
[2018-12-29 06:15] LABS: ANION GAP 7 (5-19); BLOOD UREA NITROGEN 18 mg/dL (7-20); CALCIUM 8.6 mg/dL (8.4-10.2); CARBON DIOXIDE 30 mmol/L (22-30); CHLORIDE 105 mmol/L (98-107); GLUCOSE 118 mg/dL (75-110); POTASSIUM 3.8 mmol/L (3.6-5.0); SODIUM 141.6 mmol/L (137-145)
--- NOTE | 2018-12-29 08:18 | PDOC PROGRESS REPORT ---
Subjective Reason For Visit: S/P RIGHT HEMICOLECTOMY FOR COLON CANCER Physical Exam Vital Signs: Temp Pulse Resp BP Pulse Ox 98.2 F 104 H 18 154/85 H 98 12/29/18 03:44 12/29/18 07:00 12/29/18 03:44 12/29/18 03:44 12/29/18 03:44 Intake & Output 12/28/18 12/29/18 12/30/18 06:59 06:59 06:59 Intake Total 3652 1690 Output Total 680 975 Balance 2972 715 Weight 149.7 kg 148.9 kg Results Laboratory Results: 12/29/18 05:25 12/29/18 05:25 12/29/18 12/29/18 05:25 05:25 WBC 10.9 H RBC 4.59 Hgb 13.9 Hct 40.4 MCV 88 MCH 30.2 MCHC 34.4 RDW 14.2 H Plt Count 260 Seg Neutrophils % 79.1 H Lymphocytes % 5.8 L Monocytes % 14.7 H Eosinophils % 0.2 Basophils % 0.2 Absolute Neutrophils 8.6 H Absolute Lymphocytes 0.6 Absolute Monocytes 1.6 H Absolute Eosinophils 0.0 Absolute Basophils 0.0 Sodium 141.6 Potassium 3.8 Chloride 105 Carbon Dioxide 30 Anion Gap 7 BUN 18 Creatinine 0.98 Est GFR ( Amer) > 60 Est GFR (Non-Af Amer) > 60 Glucose 118 H Calcium 8.6 Impressions: Chest X-Ray 12/28/18 07:00 IMPRESSION: Minimal left retrocardiac airspace disease atelectasis versus pneumonia. 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 The patient reports some nausea this morning, relieved by antinausea medications. He is passing flatus today. I have encouraged him to ambulate and use his incentive spirometer. Hopefully his bowel function will increase, and his nausea will dec rease. Once his nausea is resolved, I will restart his diet. No fevers, no uncontrolled pain. Incision is clean and dry. I will restart his blood thinners once he is taking p.o. reliably. Continue Lovenox for DVT prophylaxis.
--- NOTE | 2018-12-29 09:48 | Operative Report ---
Nonrecallable Operative Report DATE OF SURGERY: 12/25/18 PREOPERATIVE DIAGNOSIS: Colon cancer in the vicinity of the hepatic flexure. POSTOPERATIVE DIAGNOSIS: Same as above OPERATION: Laparoscopic converted to open right hemicolectomy for colon cancer. SURGEON: HIRO ARREDONDO 1ST CLIENT SERVER PROGRAMMER: BRITTANY PEDROZA ANESTHESIA: GA TISSUE REMOVED OR ALTERED: Right hemicolectomy COMPLICATIONS: Patient unable to tolerate pneumoperitoneum, therefore an open approach was preferred. ESTIMATED BLOOD LOSS: 100 cc PROCEDURE: Drains/implants: None. Procedure in detail: After informed consent was obtained, the patient was brought into the operating room and laid in the supine position. The area of t he abdomen was prepped and draped in a normal sterile fashion. A supraumbilical incision was created with a 15 blade scalpel. It was deepened to the use of sharp and blunt dissection. The cicatrix was identified, grasped with a Montserrat clamp, and retracted upwards. The linea alba fascia was incised sharply, the abdomen was entered sharply. The balloon trocar was inserted, and pneumoperitoneum was achieved. A right upper quadrant 5 mm port, lower midline 5 mm port, and left lower quadrant 12 mm port were placed under direct laparoscopic visualization. The patient was then moved into the Trendelenburg position with tilt toward the left. The patient's heart rate became erratic as did his blood pressure. Pneumoperitoneum was immediately relieved, and his position was returned to the supine state. This resolved his heart rate and blood pressure issues. I conferred with anesthesia, and the conclusion was to abort the laparoscopic approach in favor of an open approach. Pneumoperitoneum was again achieved in order to close the left lower quadrant defect. This was closed using 0 Vicryl suture in [id number] fashion with the use of the Endo Close device. All the trochars were then removed, and pneumoperitoneum was relieved. A midline laparotomy incision was then created with a 15 blade scalpel. The Omni retractor was brought onto the field and used to retract the abdominal wall and viscera. The dissection was begun at the ileocolic artery. It was dissected free. It was ligated with an 0 Vicryl suture ligation. Above the suture ligation, the LigaSure was used to cauterize and divide the artery. The mesentery was divided infero-laterally, toward the terminal ileum. The terminal ileum was divided using a KENNEDY-75 stapler. Next, the right colon was freed from the surrounding tissue. The white line of Toldt was divided using electrocautery. The mesentery was elevated away from the retroperitoneum. The mesentery was divided cranially using the LigaSure device. This was done taking great care not to injure the duodenum or middle colic artery. The previous tattoo was found in the hepatic flexure. As the colon was rotated medially, the omentum was freed from the transverse colon. An area greater than 5 cm was chosen distal to the tattoo. This was divided using the KENNEDY-75 stapler. The specimen was then passed off the field and sent to pathology. Next, the terminal ileum was brought in apposition to the transverse colon. It was oriented such that no kinking was found in the small intestine. A stapled, oekq-wr-xnep anastomosis was then created with the KENNEDY-75 stapler. 2 crotch stitches of 3-0 Vicryl were placed. The resultant defect was closed, again using the KENNEDY-75 stapler. The anastomosis was inspected and tested. It was found to be free of any leakage. The abdomen was then washed with copious amounts of warm saline. Attention was then turned to closure. A TAP block was then created with Marcaine. The midline fascia was closed using #1, double-stranded PDS suture in simple running fashion. The overlying skin was closed using skin donnell. A dressing was fashioned, and the procedure was concluded. All sponge, instrument, and needle counts were correct x2. Condition: Stable. Brittany Pedroza PA-C was scrubbed and present the entirety of the procedure. She assisted with all portions of the procedure including placement of the trochars, opening of the abdomen, removal of the colon, creation of the anastomosis, closure of the fascia, and closure of the skin.
[2018-12-29] MEDS: FAMOTIDINE INJ/PF 20 MG/2 ML SDV IV SCH ×2 (10:43→21:40)
[2018-12-29] MEDS: FINASTERIDE 5 MG TABLET PO SCH (10:45)
[2018-12-29] MEDS: TAMSULOSIN HCL 0.4 MG CAP.SR.24H PO SCH (10:47)
[2018-12-29] MEDS: ENOXAPARIN SODIUM INJ 40 MG/0.4 ML DISP.SYRIN SUBCUT SCH (10:48)
[2018-12-29] MEDS: DEXTROSE 5%-LACTATED RINGERS 1,000 ML IV PRN ×2 (10:53→19:39)
[2018-12-29] MEDS: PANTOPRAZOLE SODIUM 40 MG VIAL IV SCH (12:39)
--- NOTE | 2018-12-29 16:18 | Progress Note ---
Provider Note Provider Note: Re-evaluated pt this afternoon. He is passing flatus. He denies nausea today. He has been walking today. He is asking for liquids. I will advance him to a full liquid diet. I have encouraged him to start slow. I will reassess him tomorrow and possibly advance his diet.
[2018-12-29] MEDS ORDERED: PROMETHAZINE HCL INJ 25 MG/1 ML VIAL ONE (18:13)
[2018-12-29] MEDS ORDERED: PROMETHAZINE HCL INJ 25 MG/1 ML VIAL IV ONE (18:45)
[2018-12-30] MEDS: ONDANSETRON HCL INJ/PF 4 MG/2 ML SDV IV PRN ×3 (05:52→15:41)
[2018-12-30] MEDS: METOPROLOL TARTRATE PF/INJ 5 MG/5 ML SDV IV SCH ×2 (05:52→15:42)
--- NOTE | 2018-12-30 09:10 | PDOC PROGRESS REPORT ---
Subjective Progress Note for:: 12/30/18 Reason For Visit: S/P RIGHT HEMICOLECTOMY FOR COLON CANCER Physical Exam Vital Signs: Temp Pulse Resp BP Pulse Ox 99.1 F 85 18 139/82 H 97 12/30/18 07:33 12/30/18 07:33 12/30/18 07:33 12/30/18 07:33 12/30/18 07:33 Intake & Output 12/29/18 12/30/18 12/31/18 06:59 06:59 06:59 Intake Total 1690 2237 Output Total 975 650 Balance 715 1587 Weight 148.9 kg 146.8 kg Results Laboratory Results: 12/29/18 05:25 12/29/18 05:25 Impressions: Chest X-Ray 12/28/18 07:00 IMPRESSION: Minimal left retrocardiac airspace disease atelectasis versus pneumonia. 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 The patient continues to pass flatus, however he does experience intermittent nausea (no vomiting). Last night, the patient was made n.p.o. Plan for abdominal x-rays today. The patient has not had a bowel movement yet. The patient should continue with ambulation and pulmonary toilet. No fevers or chills.
[2018-12-30] MEDS: TAMSULOSIN HCL 0.4 MG CAP.SR.24H PO SCH (10:24)
[2018-12-30] MEDS: FAMOTIDINE INJ/PF 20 MG/2 ML SDV IV SCH (10:24)
[2018-12-30] MEDS: FINASTERIDE 5 MG TABLET PO SCH (10:24)
[2018-12-30] MEDS: PANTOPRAZOLE SODIUM 40 MG VIAL IV SCH (10:25)
--- NOTE | 2018-12-30 10:30 | RADIOLOGY REPORT (SQ) ---
EXAM DESCRIPTION: ABDOMEN 2 VIEWS COMPLETED DATE/TIME: 12/30/2018 9:35 am REASON FOR STUDY: flat and upright. Nausea s/p surgery. C18.2 MALIGNANT NEOPLASM OF ASCENDING COLON COMPARISON: None. NUMBER OF VIEWS: One view. TECHNIQUE: Supine radiographic image of the abdomen acquired. LIMITATIONS: None. FINDINGS: BOWEL GAS PATTERN: Mildly dilated loops of small bowel diffusely. Gas and fecal material in the colon. CALCIFICATIONS: No suspicious calcifications. SOFT TISSUES: No gross mass or suggestion of organomegaly. HARDWARE: Midline skin donnell. BONES: No acute fracture. No worrisome bone lesions. OTHER: No other significant finding. IMPRESSION: Postop ileus. Follow-up is recommended to exclude developing small bowel obstruction. TECHNICAL DOCUMENTATION: JOB ID: [id number] [employer]- All Rights Reserved Reading location - IP/workstation name: [email or web address]
[2018-12-30] MEDS: ENOXAPARIN SODIUM INJ 40 MG/0.4 ML DISP.SYRIN SUBCUT SCH (10:31)
[2018-12-30] MEDS: MORPHINE SULFATE 10 MG/ML INJ IV PRN ×2 (11:05→15:41)
[2018-12-30] MEDS: DEXTROSE 5%-LACTATED RINGERS 1,000 ML IV PRN (15:48)
[2018-12-30] MEDS: OXYCODONE-ACETAMINOPHEN 5-325 MG TABLET PO PRN (20:17)
[2018-12-30] MEDS: ONDANSETRON 4 MG TAB.RAPDIS PO PRN (20:19)
[2018-12-31] MEDS: ONDANSETRON 4 MG TAB.RAPDIS PO PRN ×5 (03:53→21:29)
[2018-12-31] MEDS: OXYCODONE-ACETAMINOPHEN 5-325 MG TABLET PO PRN ×5 (03:53→21:28)
[2018-12-31] MEDS: LANSOPRAZOLE 30 MG TAB.RAP.DR PO SCH (05:44)
[2018-12-31 09:15] LABS: ANION GAP 6 (5-19); BLOOD UREA NITROGEN 17 mg/dL (7-20); CALCIUM 8.2 mg/dL (8.4-10.2); CARBON DIOXIDE 29 mmol/L (22-30); CHLORIDE 103 mmol/L (98-107); GLUCOSE 76 mg/dL (75-110); POTASSIUM 3.5 mmol/L (3.6-5.0); SODIUM 138.2 mmol/L (137-145)
[2018-12-31] MEDS: FINASTERIDE 5 MG TABLET PO SCH (10:52)
[2018-12-31] MEDS: TAMSULOSIN HCL 0.4 MG CAP.SR.24H PO SCH (10:52)
[2018-12-31] MEDS: ENOXAPARIN SODIUM INJ 40 MG/0.4 ML DISP.SYRIN SUBCUT SCH (10:52)
--- NOTE | 2018-12-31 12:53 | PDOC PROGRESS REPORT ---
Subjective Progress Note for:: 12/31/18 Reason For Visit: S/P RIGHT HEMICOLECTOMY FOR COLON CANCER Physical Exam Vital Signs: Temp Pulse Resp BP Pulse Ox 97.8 F 112 H 16 147/87 H 97 12/31/18 11:41 12/31/18 11:41 12/31/18 11:41 12/31/18 11:41 12/31/18 11:41 Intake & Output 12/30/18 12/31/18 01/01/19 06:59 06:59 06:59 Intake Total 2237 3405 Output Total 650 950 Balance 1587 2455 Weight 146.8 kg 147.2 kg Results Laboratory Results: 12/29/18 05:25 12/31/18 08:40 12/31/18 08:40 Sodium 138.2 Potassium 3.5 L Chloride 103 Carbon Dioxide 29 Anion Gap 6 BUN 17 Creatinine 0.93 Est GFR ( Amer) > 60 Est GFR (Non-Af Amer) > 60 Glucose 76 Calcium 8.2 L Impressions: Chest X-Ray 12/28/18 07:00 IMPRESSION: Minimal left retrocardiac airspace disease atelectasis versus pneumonia. Abdomen X-Ray 12/30/18 06:00 IMPRESSION: Postop ileus. Follow-up is recommended to exclude developing small bowel obstruction. 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 The patient is doing well today. He denies any vomiting. He is tolerating full liquids. Patient reports that he is passing a large amount of flatus. The patient has not had a bowel movement yet. Continue with ambulation and incentive spiromet er. Awaiting improvement of his bowel function to advance diet. Lab work shows hypokalemia, I will replace his potassium today.
[2018-12-31] MEDS: POTASSIUM CHLORIDE 10 MEQ CAPSULE.ER PO SCH ×2 (13:06→21:21)
--- NOTE | 2018-12-31 17:47 | PDOC PROGRESS REPORT ---
Subjective Progress Note for:: 12/31/18 Subjective:: Called by nurse because incision drained and soaked a gauze from lowe incision after patient had shower. Reason For Visit: S/P RIGHT HEMICOLECTOMY FOR COLON CANCER Physical Exam Vital Signs: Temp Pulse Resp BP Pulse Ox 98.4 F 102 H 14 145/89 H 96 12/31/18 15:18 12/31/18 15:18 12/31/18 15:18 12/31/18 15:18 12/31/18 15:18 Intake & Output 12/30/18 12/31/18 01/01/19 06:59 06:59 06:59 Intake Total 2237 3405 300 Output Total 650 950 Balance 1587 2455 300 Weight 146.8 kg 147.2 kg Exam: Distal 3 donnell removed and small amount of non foul smelling drainage noted. C/S obtained. Appears localized. Subcu fat probed with a q-tip to fascia that felt intact. Results Laboratory Results: 12/29/18 05:25 12/31/18 08:40 12/31/18 08:40 Sodium 138.2 Potassium 3.5 L Chloride 103 Carbon Dioxide 29 Anion Gap 6 BUN 17 Creatinine 0.93 Est GFR ( Amer) > 60 Est GFR (Non-Af Amer) > 60 Glucose 76 Calcium 8.2 L Impressions: Chest X-Ray 12/28/18 07:00 IMPRESSION: Minimal left retrocardiac airspace disease atelectasis versus pneumonia. Abdomen X-Ray 12/30/18 06:00 IMPRESSION: Postop ileus. Follow-up is recommended to exclude developing small bowel obstruction. Assessment & Plan - Time Time Spent with patient: 15-24 minutes - Plan Summary Plan Summary: Wound gently packed with one 4x4. C/S sent Start po Cipro Will inform Dr Cortez in am.
[2019-01-01] MEDS: OXYCODONE-ACETAMINOPHEN 5-325 MG TABLET PO PRN ×3 (01:38→11:14)
[2019-01-01] MEDS: ONDANSETRON 4 MG TAB.RAPDIS PO PRN ×3 (01:38→11:14)
[2019-01-01 05:32] LABS: ABSOLUTE EOSINOPHILS # (AUTO) 0.1 10^3/uL (0.0-0.6); ABSOLUTE LYMPHOCYTES (AUTO) 0.9 10^3/uL (0.5-4.7); ABSOLUTE MONOCYTES (AUTO) 1.4 10^3/uL (0.1-1.4); ABSOLUTE NEUT (AUTO) 8.8 10^3/uL (1.7-8.2); BASOPHILS % (AUTO) 0.2 % (0-2); EOSINOPHILS % (AUTO) 1.1 % (0-6); HEMATOCRIT 38.6 % (37.9-51.0); MEAN CORPUSCULAR HEMOGLOBIN 29.1 pg (27.0-33.4); MEAN CORPUSCULAR HGB CONC 33.5 g/dL (32.0-36.0); MEAN CORPUSCULAR VOLUME 87 fl (80-97); MONOCYTES % (AUTO) 12.3 % (3-13); PLATELET COUNT 281 10^3/uL (150-450); RED BLOOD COUNT 4.46 10^6/uL (4.35-5.55); RED CELL DISTRIBUTION WIDTH 14.4 % (11.5-14.0); SEGMENTED NEUTROPHILS % (AUTO) 78.4 % (42-78); TOTAL CELLS COUNTED % (AUTO) 100 %; WHITE BLOOD COUNT 11.3 10^3/uL (4.0-10.5)
[2019-01-01] MEDS: LANSOPRAZOLE 30 MG TAB.RAP.DR PO SCH (05:41)
[2019-01-01 05:54] LABS: ANION GAP 8 (5-19); BLOOD UREA NITROGEN 15 mg/dL (7-20); CALCIUM 8.2 mg/dL (8.4-10.2); CARBON DIOXIDE 28 mmol/L (22-30); CHLORIDE 103 mmol/L (98-107); GLUCOSE 83 mg/dL (75-110); SODIUM 138.8 mmol/L (137-145)
[2019-01-01] MEDS: TAMSULOSIN HCL 0.4 MG CAP.SR.24H PO SCH (09:42)
[2019-01-01] MEDS: ENOXAPARIN SODIUM INJ 40 MG/0.4 ML DISP.SYRIN SUBCUT SCH (09:42)
[2019-01-01] MEDS: FINASTERIDE 5 MG TABLET PO SCH (09:42)
--- NOTE | 2019-01-01 11:20 | RADIOLOGY REPORT (SQ) ---
EXAM DESCRIPTION: CT ABD/PELVIS WITH IV ORAL COMPLETED DATE/TIME: 01/01/2019 10:56 am REASON FOR STUDY: s/p right hemicolectomy. persistent nausea and vom C18.2 MALIGNANT NEOPLASM OF CENDING COLON COMPARISON: Abdominal films 12/30/2018, 10/18/2018 CT abdomen pelvis 03/19/2013 TECHNIQUE: CT scan of the abdomen and pelvis performed using helical scanning technique with dynamic intravenous contrast injection. Patient drank oral contrast, vomited up most of the oral contrast. Images reviewed with lung, soft tissue, and bone windows. Reconstructed coronal and sagittal MPR imag es reviewed. Delayed images for evaluation of the urinary system also acquired. All images stored on PACS. All CT scanners at this facility use dose modulation, iterative reconstruction, and/or weight based d osing when appropriate to reduce radiation dose to as low as reasonably achievable (ALARA). [facility]: Dose Right [facility]: CareDose [facility]: Dose Right [facility]: Teradose 4D [facility]: Jogli CONTRAST TYPE AND DOSE: contrast/concentration: Isovue 350.00 mg/ml; Total Contrast Delivered: 100.0 ml; Total Saline Delivered: 72.0 ml RENAL FUNCTION: Creatinine 1.0 RADIATION DOSE: CT Rad equipment meets quality standard of care and radiation dose reduction techniq ues were employed. CTDIvol: 26.0 - 30.2 mGy. DLP: 3324 mGy-cm.. LIMITATIONS: None. FINDINGS: Patient is post right hemicolectomy with [id number] anastomosis between the distal ileum and proximal transverse colon. Dehiscence of the staple line along the oversewn proximal end of the colon is present on coronal images 47-63, with a pocket of extraluminal air adjacent to the oversewn colon end, measuring about 5 cm in diameter. No loculated abscess. Small amount of right pericolic gutter free fluid. Findings called to Dr. Haddad, 1110 hours 01/01/2019. LOWER CHEST: There is bibasilar atelectasis and trace right pleural effusion. LIVER: Normal size. No masses. No dilated ducts. SPLEEN: Normal size. No focal lesions. PANCREAS: No masses. No significant calcifications. No adjacent inflammation or peripancreatic fluid collections. Pancreatic duct not dilated. GALLBLADDER: No identified stones by CT criteria. No inflammatory changes to suggest cholecystitis. ADRENAL GLANDS: No significant masses or asymmetry. RIGHT KIDNEY AND URETER: No solid masses. Multiple right renal cortical cysts. No significant calci fications. No hydronephrosis or hydroureter. LEFT KIDNEY AND URETER: No solid masses. Multiple left renal cortical cysts. No significant calcifi cations. No hydronephrosis or hydroureter. AORTA AND VESSELS: No aneurysm. No dissection. Renal arteries, SMA, celiac without stenosis. RETROPERITONEUM: No retroperitoneal adenopathy, hemorrhage or masses. BOWEL AND PERITONEAL CAVITY: As above APPENDIX: Surgically absent PELVIS: No mass. Trace cul-de-sac free fluid. Normal bladder. ABDOMINAL WALL: No masses. No hernias. Anterior abdominal wall incision with gauze packing BONES: No significant or acute findings. OTHER: No other significant finding. IMPRESSION: Leakage of air into the mesenteric fat adjacent to the ileocolic anastomosis. Small sujit unt of right pericolic gutter and pelvis free fluid. Diffuse distention of stomach and small bowel, likely ileus rather than obstruction. COMMENT: Pertinent findings on the imaging study reported as a CRITICAL RESULT to HIRO ARREDONDO MD at11:14 on 01/01/2019. Category of Critical Result: Free air from anastomotic leak TECHNICAL DOCUMENTATION: JOB ID: [id number] Quality ID # [id number]: Final reports with documentation of one or more dose reduction techniques (e.g., Au tomated exposure control, adjustment of the mA and/or kV according to patient size, use of iterative reconstruction technique) 2010 [employer]- All Rights Reserved Reading location - IP/workstation name: [email or web address]
[2019-01-01] MEDS: PROMETHAZINE HCL INJ 25 MG/1 ML VIAL IV PRN (15:50)
--- NOTE | 2019-01-01 16:37 | PDOC PROGRESS REPORT ---
Subjective Reason For Visit: S/P RIGHT HEMICOLECTOMY FOR COLON CANCER Physical Exam Vital Signs: Temp Pulse Resp BP Pulse Ox 98.3 F 113 H 22 H 133/71 H 98 01/01/19 11:48 01/01/19 14:00 01/01/19 11:48 01/01/19 11:48 01/01/19 11:48 Intake & Output 12/31/18 01/01/19 01/02/19 06:59 06:59 06:59 Intake Total 3405 1435 Output Total 950 450 Balance 2455 985 Weight 147.2 kg Results Laboratory Results: 01/01/19 04:54 01/01/19 04:54 01/01/19 01/01/19 04:54 04:54 WBC 11.3 H RBC 4.46 Hgb 13.0 L Hct 38.6 MCV 87 MCH 29.1 MCHC 33.5 RDW 14.4 H Plt Count 281 Seg Neutrophils % 78.4 H Lymphocytes % 8.0 L Monocytes % 12.3 Eosinophils % 1.1 Basophils % 0.2 Absolute Neutrophils 8.8 H Absolute Lymphocytes 0.9 Absolute Monocytes 1.4 Absolute Eosinophils 0.1 Absolute Basophils 0.0 Sodium 138.8 Potassium 4.0 Chloride 103 Carbon Dioxide 28 Anion Gap 8 BUN 15 Creatinine 1.00 Est GFR ( Amer) > 60 Est GFR (Non-Af Amer) > 60 Glucose 83 Calcium 8.2 L Impressions: Chest X-Ray 12/28/18 07:00 IMPRESSION: Minimal left retrocardiac airspace disease atelectasis versus pneumonia. Abdomen X-Ray 12/30/18 06:00 IMPRESSION: Postop ileus. Follow-up is recommended to exclude developing small bowel obstruction. Abdomen/Pelvis CT 01/01/19 00:00 IMPRESSION: Leakage of air into the mesenteric fat adjacent to the ileocolic anastomosis. Small amount of right pericolic gutter and pelvis free fluid. Diffuse distention of stomach and small bowel, likely ileus rather than o bstruction. 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 The pt continues to pass flatus. The pt reported nausea and several episodes of vomiting this morning. Due to that finding, a CT scan was obtained to rule-out an obstruction. I have reviewed the CT images and the report. There is a collection of air in the area of the ileocolic anastomosis. It does appear to be contained. This could be residual from surgery, or represent a contained leak. At present the pt is afebrile, n ormotensive, denies significant abdominal discomfort, displays no tachycardia, and has normal electrolytes. I have discussed this finding with the patient and his family. At this time the patient would like to avoid re-exploration with diverting ileostomy. I believe this is reasonable. I have recommended very close observation with repeat labs and possibly a repeat CT in 24-48 hrs. If there is any sign of decompensation, the patient will require exploration and diverting ileostomy. Start antibiotics. NG tube to assist with nausea and vomiting.
[2019-01-01] MEDS: MORPHINE SULFATE 10 MG/ML INJ IV PRN (16:55)
[2019-01-01] MEDS: CIPROFLOXACIN 400 MG/D5W RTU 400 MG/200 ML RTUPB IV SCH (18:30)
[2019-01-01] MEDS: POTASSI CL 20 MEQ/D5-1/2NS 1L 1,000 ML IV PRN (20:22)
[2019-01-01] MEDS: METRONIDAZOLE 500 MG/NS RTU 500 MG/100 ML RTUPB IV SCH (22:43)
[2019-01-01] MEDS: PANTOPRAZOLE SODIUM 40 MG VIAL IV SCH (22:43)
[2019-01-02] MEDS: MORPHINE SULFATE 10 MG/ML INJ IV PRN (02:53)
[2019-01-02] MEDS: PROMETHAZINE HCL INJ 25 MG/1 ML VIAL IV PRN ×2 (02:58→15:40)
[2019-01-02 05:33] LABS: ABSOLUTE EOSINOPHILS # (AUTO) 0.1 10^3/uL (0.0-0.6); ABSOLUTE LYMPHOCYTES (AUTO) 0.9 10^3/uL (0.5-4.7); ABSOLUTE MONOCYTES (AUTO) 1.2 10^3/uL (0.1-1.4); ABSOLUTE NEUT (AUTO) 12.5 10^3/uL (1.7-8.2); BASOPHILS % (AUTO) 0.3 % (0-2); EOSINOPHILS % (AUTO) 0.9 % (0-6); MEAN CORPUSCULAR HEMOGLOBIN 29.2 pg (27.0-33.4); MEAN CORPUSCULAR HGB CONC 33.5 g/dL (32.0-36.0); MEAN CORPUSCULAR VOLUME 87 fl (80-97); PLATELET COUNT 348 10^3/uL (150-450); RED BLOOD COUNT 4.47 10^6/uL (4.35-5.55); RED CELL DISTRIBUTION WIDTH 14.7 % (11.5-14.0); SEGMENTED NEUTROPHILS % (AUTO) 84.8 % (42-78); TOTAL CELLS COUNTED % (AUTO) 100 %; WHITE BLOOD COUNT 14.7 10^3/uL (4.0-10.5)
[2019-01-02 05:54] LABS: ANION GAP 9 (5-19); BLOOD UREA NITROGEN 15 mg/dL (7-20); CALCIUM 8.1 mg/dL (8.4-10.2); CARBON DIOXIDE 25 mmol/L (22-30); CHLORIDE 104 mmol/L (98-107); GLUCOSE 93 mg/dL (75-110); POTASSIUM 3.8 mmol/L (3.6-5.0); SODIUM 137.5 mmol/L (137-145)
[2019-01-02] MEDS: CIPROFLOXACIN 400 MG/D5W RTU 400 MG/200 ML RTUPB IV SCH ×2 (06:07→17:00)
[2019-01-02] MEDS: METRONIDAZOLE 500 MG/NS RTU 500 MG/100 ML RTUPB IV SCH ×3 (07:21→21:05)
--- NOTE | 2019-01-02 09:01 | RADIOLOGY REPORT (SQ) ---
EXAM DESCRIPTION: KUB/ABDOMEN (SINGLE VIEW) COMPLETED DATE/TIME: 01/02/2019 8:52 am REASON FOR STUDY: nausea vomiting C18.2 MALIGNANT NEOPLASM OF ASCENDING COLON COMPARISON: 12/30/2018 NUMBER OF VIEWS: One view. TECHNIQUE: Supine radiographic image of the abdomen acquired. LIMITATIONS: None. FINDINGS: BOWEL GAS PATTERN: There is persistent small-bowel distention. Largest diameter is approx imately 6 cm. This is slightly increased in size from prior study. Colonic air is basically unchang ed. This most likely represents postoperative ileus although partial small bowel obstruction is poss ible. CALCIFICATIONS: No suspicious calcifications. SOFT TISSUES: No gross mass or suggestion of organomegaly. HARDWARE: There are surgical clips left of midline. BONES: No acute fracture. No worrisome bone lesions. OTHER: No other significant finding. IMPRESSION: Slight increase in the amount of small-bowel distention described. There is persistent colonic air. This most likely represents postoperative ileus although early or partial small bowel o bstruction are considerations. TECHNICAL DOCUMENTATION: JOB ID: [id number] [employer]- All Rights Reserved Reading location - IP/workstation name: [email or web address]
[2019-01-02] MEDS: FINASTERIDE 5 MG TABLET PO SCH (11:26)
[2019-01-02] MEDS: TAMSULOSIN HCL 0.4 MG CAP.SR.24H PO SCH (11:26)
[2019-01-02] MEDS: ENOXAPARIN SODIUM INJ 40 MG/0.4 ML DISP.SYRIN SUBCUT SCH (11:29)
[2019-01-02] MEDS: PANTOPRAZOLE SODIUM 40 MG VIAL IV SCH ×2 (11:46→21:04)
--- NOTE | 2019-01-02 12:10 | PDOC PROGRESS REPORT ---
Subjective Progress Note for:: 01/02/19 Reason For Visit: S/P RIGHT HEMICOLECTOMY FOR COLON CANCER Physical Exam Vital Signs: Temp Pulse Resp BP Pulse Ox 98.1 F 96 18 140/79 H 96 01/02/19 11:10 01/02/19 11:10 01/02/19 11:10 01/02/19 11:10 01/02/19 11:10 Intake & Output 01/01/19 01/02/19 01/03/19 06:59 06:59 06:59 Intake Total 1435 567 300 Output Total 450 2250 Balance 985 -1683 300 Weight 147.7 kg Results Laboratory Results: 01/02/19 04:59 01/02/19 04:59 01/02/19 01/02/19 04:59 04:59 WBC 14.7 H RBC 4.47 Hgb 13.0 L Hct 39.0 MCV 87 MCH 29.2 MCHC 33.5 RDW 14.7 H Plt Count 348 Seg Neutrophils % 84.8 H Lymphocytes % 6.0 L Monocytes % 8.0 Eosinophils % 0.9 Basophils % 0.3 Absolute Neutrophils 12.5 H Absolute Lymphocytes 0.9 Absolute Monocytes 1.2 Absolute Eosinophils 0.1 Absolute Basophils 0.0 Sodium 137.5 Potassium 3.8 Chloride 104 Carbon Dioxide 25 Anion Gap 9 BUN 15 Creatinine 0.78 Est GFR ( Amer) > 60 Est GFR (Non-Af Amer) > 60 Glucose 93 Calcium 8.1 L Impressions: Chest X-Ray 12/28/18 07:00 IMPRESSION: Minimal left retrocardiac airspace disease atelectasis versus pn eumonia. Abdomen X-Ray 12/30/18 06:00 IMPRESSION: Postop ileus. Follow-up is recommended to exclude developing small bowel obstruction. Abdomen/Pelvis CT 01/01/19 00:00 IMPRESSION: Leakage of air into the mesenteric fat adjacent to the ileocolic anastomosis. Small amount of right pericolic gutter and pelvis free fluid. Diffuse distention of stomach and small bowel, likely ileus rather than obstruction. KUB X-Ray 01/02/19 06:00 IMPRESSION: Slight increase in the amount of small-bowel distention described. There is persistent colonic air. This most likely represents postoperative ileus although early or partial small bowel obstruction are considerations. 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 The patient has a persistent ileus after surgery. The patient is still passing flatus, however his NG tube still is productive of bilious fluid. Patient was found to have air in the area of the anastomosis on CT scan yesterday. The patient has remained afebrile overnight. He does not have tachycardia or hypotension. He reports that his abdominal pain is less severe today. The patient's white blood cell count has elevated to 14,000 today. I have discussed the plan with both patient and his daughter at length. Plan for repeat noncontrasted CT scan tomorrow to evaluate for abscess formation or dissemination of the small amount of intra- abdominal air. KUB today shows no large amount of free intraperitoneal air. Continue antibiotics. The patient and his family are in agreement with the treatment plan.
[2019-01-02] MEDS: POTASSI CL 20 MEQ/D5-1/2NS 1L 1,000 ML IV PRN (13:10)
--- NOTE | 2019-01-02 18:29 | Progress Note ---
Provider Note Provider Note: Pt re-evaluated. He denies pain or fevers. Continues to pass flatus. Normotensive. No tachycardia. Cont abx. Repeat CT and labs tomorrow.
[2019-01-02] MEDS: ONDANSETRON HCL INJ/PF 4 MG/2 ML SDV IV PRN (19:33)
[2019-01-03] MEDS: POTASSI CL 20 MEQ/D5-1/2NS 1L 1,000 ML IV PRN ×3 (03:06→14:16)
[2019-01-03] MEDS: PHENOL/SODIUM PHENOLATE 100 SPRAY/177 ML BOTTLE PO PRN ×2 (04:12→05:09)
[2019-01-03] MEDS: METRONIDAZOLE 500 MG/NS RTU 500 MG/100 ML RTUPB IV SCH ×3 (05:04→22:31)
[2019-01-03 05:16] LABS: ABSOLUTE BASOPHILS # (AUTO) 0.1 10^3/uL (0.0-0.2); ABSOLUTE EOSINOPHILS # (AUTO) 0.1 10^3/uL (0.0-0.6); ABSOLUTE LYMPHOCYTES (AUTO) 0.9 10^3/uL (0.5-4.7); ABSOLUTE MONOCYTES (AUTO) 1.3 10^3/uL (0.1-1.4); ABSOLUTE NEUT (AUTO) 11.4 10^3/uL (1.7-8.2); BASOPHILS % (AUTO) 0.4 % (0-2); EOSINOPHILS % (AUTO) 0.8 % (0-6); HEMOGLOBIN 12.9 g/dL (13.5-17.0); LYMPHOCYTES % (AUTO) 6.7 % (13-45); MEAN CORPUSCULAR HEMOGLOBIN 29.3 pg (27.0-33.4); MEAN CORPUSCULAR VOLUME 86 fl (80-97); MONOCYTES % (AUTO) 9.3 % (3-13); PLATELET COUNT 340 10^3/uL (150-450); RED CELL DISTRIBUTION WIDTH 14.6 % (11.5-14.0); SEGMENTED NEUTROPHILS % (AUTO) 82.8 % (42-78); TOTAL CELLS COUNTED % (AUTO) 100 %; WHITE BLOOD COUNT 13.7 10^3/uL (4.0-10.5)
[2019-01-03 05:40] LABS: ANION GAP 7 (5-19); BLOOD UREA NITROGEN 14 mg/dL (7-20); CALCIUM 7.9 mg/dL (8.4-10.2); CARBON DIOXIDE 27 mmol/L (22-30); CHLORIDE 104 mmol/L (98-107); GLUCOSE 109 mg/dL (75-110); POTASSIUM 3.7 mmol/L (3.6-5.0); SODIUM 138.2 mmol/L (137-145)
[2019-01-03] MEDS: CIPROFLOXACIN 400 MG/D5W RTU 400 MG/200 ML RTUPB IV SCH ×2 (06:04→17:45)
[2019-01-03] MEDS ORDERED: CALCIUM GLUCONATE 2,000 MG in DEXTROSE 5%-WATER 100 ML IV ONE ×2 (07:01→10:00)
[2019-01-03] MEDS: ONDANSETRON HCL INJ/PF 4 MG/2 ML SDV IV PRN ×2 (07:53→12:33)
--- NOTE | 2019-01-03 08:43 | RADIOLOGY REPORT (SQ) ---
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 Images reviewed with lung, soft tissue, and bone windows. Reconstructed coronal and sagittal MPR images revi ewed. All images stored on PACS. All CT scanners at this facility use dose modulation, iterative reconstruction, and/or weight based d osing when appropriate to reduce radiation dose to as low as reasonably achievable (ALARA). [facility]: Dose Right [facility]: CareDose [facility]: Dose Right [facility]: Teradose 4D [facility]: Smart Nut[employer]ures RADIATION DOSE: CT Rad equipment meets quality standard of care and radiation dose reduction techniq ues were employed. CTDIvol: 20.9 mGy. DLP: 1324 mGy-cm.mGy. LIMITATIONS: None. FINDINGS: LOWER CHEST: Stable right pleural effusion. Minimal left effusion. NON-CONTRASTED LIVER, SPLEEN, ADRENALS: Evaluation limited by lack of IV contrast. No identified sign ificant masses. PANCREAS: No masses. No peripancreatic inflammatory changes. GALLBLADDER: No identified stones by CT criteria. No inflammatory changes to suggest cholecystitis. RIGHT KIDNEY AND URETER: Well circumscribed low density mass(es) statistically most likely to be cyst (s). Assessment limited by lack of iv contrast. No significant calcifications. No hydronephrosis or hydroureter. LEFT KIDNEY AND URETER: Well circumscribed low density mass(es) statistically most likely to be cyst( s). Assessment limited by lack of iv contrast. No significant calcifications. No hydronephrosis o r hydroureter. AORTA AND RETROPERITONEUM: No aneurysm. No retroperitoneal masses or adenopathy. BOWEL AND PERITONEAL CAVITY: Air collection at the anastomotic site slightly smaller than previous. Now measures 4 cm. No generalize free air. Resolution of the small bowel dilatation. APPENDIX: Surgically absent. PELVIS, BLADDER, AND ABDOMINAL WALL:No abnormal masses. No free fluid. Bladder normal. Resolution of wound dehiscence. BONES: No significant findings. OTHER: No other significant finding. IMPRESSION: Pocket of air adjacent to the surgical anastomosis is smaller than previous. There is n o generalize free air. Improved appearance of the small bowel loops. COMMENT: Quality ID # [id number]: Final reports with documentation of one or more dose reduction techniques (e.g., Automated exposure control, adjustment of the mA and/or kV according to patient size, use of iterative reconstruction technique) TECHNICAL DOCUMENTATION: JOB ID: [id number] [employer]- All Rights Reserved Reading location - IP/workstation name: [email or web address]
[2019-01-03] MEDS: TAMSULOSIN HCL 0.4 MG CAP.SR.24H PO SCH (09:54)
[2019-01-03] MEDS: FINASTERIDE 5 MG TABLET PO SCH (09:55)
--- NOTE | 2019-01-03 10:45 | PDOC PROGRESS REPORT ---
Subjective Progress Note for:: 01/03/19 Reason For Visit: S/P RIGHT HEMICOLECTOMY FOR COLON CANCER Physical Exam Vital Signs: Temp Pulse Resp BP Pulse Ox 98.7 F 95 20 144/80 H 95 01/03/19 07:29 01/03/19 07:29 01/03/19 07:29 01/03/19 07:29 01/03/19 07:29 Intake & Output 01/02/19 01/03/19 01/04/19 06:59 06:59 06:59 Intake Total 567 2761 200 Output Total 2250 1928 Balance -1683 833 200 Weight 147.7 kg 147.1 kg Results Laboratory Results: 01/03/19 04:38 01/03/19 04:38 01/03/19 01/03/19 04:38 04:38 WBC 13.7 H RBC 4.40 Hgb 12.9 L Hct 38.0 MCV 86 MCH 29.3 MCHC 34.0 RDW 14.6 H Plt Count 340 Seg Neutrophils % 82.8 H Lymphocytes % 6.7 L Monocytes % 9.3 Eosinophils % 0.8 Basophils % 0.4 Absolute Neutrophils 11.4 H Absolute Lymphocytes 0.9 Absolute Monocytes 1.3 Absolute Eosinophils 0.1 Absolute Basophils 0.1 Sodium 138.2 Potassium 3.7 Chloride 104 Carbon Dioxide 27 Anion Gap 7 BUN 14 Creatinine 0.89 Est GFR ( Amer) > 60 Est GFR (Non-Af Amer) > 60 Glucose 109 Calcium 7.9 L Impressions: Chest X-Ray 12/28/18 07:00 IMPRESSION: Minimal left retrocardiac airspace disease atelectasis versus pneumonia. Abdomen X-Ray 12/30/18 06:00 IMPRESSION: Postop ileus. Follow-up is recommended to exclude developing small bowel obstruction. KUB X-Ray 01/02/19 06:00 IMPRESSION: Slight increase in the amount of small-bowel distention described. There is persistent colonic air. This most likely represents postoperative ileus although early or partial small bowel obstruction are considerations. Abdomen/Pelvis CT 01/03/19 08:00 IMPRESSION: Pocket of air adjacent to the surgical anastomosis is smaller than previous. There is no generalize free air. Improved appearance of the small bowel loops. 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 Pt feels better today. NG remains in-place. Still passing large amount of flatus per pt report. Long discussion held with the pt and his family regarding care plan. After reviewing all possible options, they are in agreement with continuation of conservative management with bowel rest and IV abx. CT reviewed by me. Amount of perianastomotic air decreased, with no fluid present. WBC's improved today. Afebrile. --> Repeat labs tomorrow. Pt is now POD #9 and still has an NG. I have recommended initiation of TPN to assist with nutrition. The pt has agreed to this
[2019-01-03] MEDS ORDERED: DEXTROSE 10%-WATER 1,000 ML IV PRN (11:30)
--- NOTE | 2019-01-03 11:45 | Operative Report ---
Nonrecallable Operative Report DATE OF SURGERY: 01/03/19 PREOPERATIVE DIAGNOSIS: colon cancer, malnutrition, adynamic ileus POSTOPERATIVE DIAGNOSIS: same as above OPERATION: 1. ultrasound guided central venous puncture. 2. left IJ central line placement. SURGEON: HIRO ARREDONDO ANESTHESIA: Local TISSUE REMOVED OR ALTERED: none COMPLICATIONS: none apparent ESTIMATED BLOOD LOSS: minimal PROCEDURE: implants: left IF c-line at 15 cm Procedure in detail: After informed consent was obtained, the pt was laid in the trendelenburg position. The left IJ was visualized with the ultrasound. It was compressible with normal flow. Under direct ultrasound guidance, the left IJ was canulated. Dark, venous, nonpulsatile blood was returned in the syringe. The wire was inserted easily. The catheter was inserted over the wire without difficulty using a modified Seldinger technique. The catheter was situated at 15cm at the skin. The catheter aspirated and flushed easily x3. The catheter was sutured to the skin with 3-0 silk suture. A sterile dressing was placed, and the procedure was concluded. All sponge. instrument, and needle counts were correct. Condition: fair.
[2019-01-03] MEDS: PANTOPRAZOLE SODIUM 40 MG VIAL IV SCH ×2 (12:02→22:30)
[2019-01-03] MEDS: ENOXAPARIN SODIUM INJ 40 MG/0.4 ML DISP.SYRIN SUBCUT SCH (12:02)
--- NOTE | 2019-01-03 12:07 | RADIOLOGY REPORT (SQ) ---
EXAM DESCRIPTION: CHEST SINGLE VIEW COMPLETED DATE/TIME: 01/03/2019 11:56 am REASON FOR STUDY: central line placement COMPARISON: 12/28/2018 EXAM PARAMETERS: NUMBER OF VIEWS: One view. TECHNIQUE: Single frontal radiographic view of the chest acquired. RADIATION DOSE: NA LIMITATIONS: None. FINDINGS: LUNGS AND PLEURA: Persistent left basilar opacity consistent with pneumonia. Right lung i s clear. No pneumothorax. MEDIASTINUM AND HILAR STRUCTURES: No masses. Contour normal. HEART AND VASCULAR STRUCTURES: Heart normal in size. Normal vasculature. BONES: No acute findings. HARDWARE: Nasogastric tube tip in the stomach. Venous access catheter via left IJ approach. Tip at the cavoatrial junction. OTHER: No other significant finding. IMPRESSION: Persistent left basilar pneumonitis. Venous access catheter tip at the cavoatrial junction. Nasogastric tube in expected location. TECHNICAL DOCUMENTATION: JOB ID: [id number] [employer]- All Rights Reserved Reading location - IP/workstation name: [email or web address]
[2019-01-03] MEDS: MORPHINE SULFATE 10 MG/ML INJ IV PRN (12:32)
[2019-01-03] MEDS: AMINO ACIDS 5 %/DEXTROSE 20 % 1,000 ML IV PRN (17:45)
[2019-01-03 18:45] LABS: HEMATOCRIT 37.5 % (37.9-51.0); HEMOGLOBIN 12.6 g/dL (13.5-17.0); MEAN CORPUSCULAR HGB CONC 33.6 g/dL (32.0-36.0); MEAN CORPUSCULAR VOLUME 86 fl (80-97); PLATELET COUNT 338 10^3/uL (150-450); RED BLOOD COUNT 4.35 10^6/uL (4.35-5.55); RED CELL DISTRIBUTION WIDTH 14.6 % (11.5-14.0); WHITE BLOOD COUNT 13.6 10^3/uL (4.0-10.5)
[2019-01-03 18:51] LABS: INTERNATIONAL RATION (INR) 1.53; PROTHROMBIN TIME 19.1 SEC (11.4-15.4)
[2019-01-03 18:59] LABS: ALANINE AMINOTRANSFERASE 55 U/L (21-72); ALBUMIN 2.6 g/dL (3.5-5.0); ALKALINE PHOSPHATASE 75 U/L (38-126); ANION GAP 7 (5-19); ASPARTATE AMINO TRANSFERASE 46 U/L (17-59); BILIRUBIN,DIRECT 0.4 mg/dL (0.0-0.4); BILIRUBIN,TOTAL 0.9 mg/dL (0.2-1.3); BLOOD UREA NITROGEN 11 mg/dL (7-20); CALCIUM 8.1 mg/dL (8.4-10.2); CARBON DIOXIDE 28 mmol/L (22-30); CHLORIDE 104 mmol/L (98-107); GLUCOSE 101 mg/dL (75-110); PHOSPHORUS 3.8 mg/dL (2.5-4.5); POTASSIUM 3.5 mmol/L (3.6-5.0); SODIUM 138.9 mmol/L (137-145); TOTAL PROTEIN 5.2 g/dL (6.3-8.2); TRIGLYCERIDES 85 mg/dL (<150)
[2019-01-04] MEDS: MORPHINE SULFATE 10 MG/ML INJ IV PRN ×2 (03:38→09:35)
[2019-01-04] MEDS: ONDANSETRON HCL INJ/PF 4 MG/2 ML SDV IV PRN ×3 (03:38→18:13)
[2019-01-04 05:02] LABS: ABSOLUTE BASOPHILS # (AUTO) 0.1 10^3/uL (0.0-0.2); ABSOLUTE EOSINOPHILS # (AUTO) 0.2 10^3/uL (0.0-0.6); ABSOLUTE LYMPHOCYTES (AUTO) 1.2 10^3/uL (0.5-4.7); ABSOLUTE MONOCYTES (AUTO) 1.3 10^3/uL (0.1-1.4); ABSOLUTE NEUT (AUTO) 10.2 10^3/uL (1.7-8.2); BASOPHILS % (AUTO) 0.8 % (0-2); EOSINOPHILS % (AUTO) 1.3 % (0-6); HEMATOCRIT 37.5 % (37.9-51.0); HEMOGLOBIN 12.6 g/dL (13.5-17.0); MEAN CORPUSCULAR HEMOGLOBIN 29.1 pg (27.0-33.4); MEAN CORPUSCULAR HGB CONC 33.6 g/dL (32.0-36.0); MEAN CORPUSCULAR VOLUME 87 fl (80-97); MONOCYTES % (AUTO) 9.8 % (3-13); PLATELET COUNT 352 10^3/uL (150-450); RED BLOOD COUNT 4.33 10^6/uL (4.35-5.55); RED CELL DISTRIBUTION WIDTH 14.7 % (11.5-14.0); SEGMENTED NEUTROPHILS % (AUTO) 79.1 % (42-78); TOTAL CELLS COUNTED % (AUTO) 100 %; WHITE BLOOD COUNT 12.9 10^3/uL (4.0-10.5)
[2019-01-04 05:23] LABS: ALANINE AMINOTRANSFERASE 51 U/L (21-72); ALBUMIN 2.5 g/dL (3.5-5.0); ALKALINE PHOSPHATASE 74 U/L (38-126); ANION GAP 8 (5-19); ASPARTATE AMINO TRANSFERASE 41 U/L (17-59); BILIRUBIN,DIRECT 0.3 mg/dL (0.0-0.4); BILIRUBIN,TOTAL 0.8 mg/dL (0.2-1.3); BLOOD UREA NITROGEN 11 mg/dL (7-20); CARBON DIOXIDE 27 mmol/L (22-30); CHLORIDE 105 mmol/L (98-107); GLUCOSE 107 mg/dL (75-110); POTASSIUM 3.4 mmol/L (3.6-5.0); SODIUM 140.2 mmol/L (137-145); TOTAL PROTEIN 5.2 g/dL (6.3-8.2)
[2019-01-04 05:31] LABS: PREALBUMIN 7.1 mg/dL (17.6-36.0)
[2019-01-04] MEDS: CIPROFLOXACIN 400 MG/D5W RTU 400 MG/200 ML RTUPB IV SCH ×2 (05:57→17:29)
[2019-01-04] MEDS: METRONIDAZOLE 500 MG/NS RTU 500 MG/100 ML RTUPB IV SCH ×3 (05:58→21:08)
--- NOTE | 2019-01-04 07:05 | RADIOLOGY REPORT (SQ) ---
CLINICAL HISTORY: verify ngt placement COMPARISON: None. TECHNIQUE: XR CHEST 1 VIEW 01/04/2019 12:00 AM [employer] FINDINGS: Cardiac silhouette is normal in size. Lungs are clear without consolidation, atelectasis, mass or edema. There is no pleural effusion. There is no pneumothorax. There are no acute osseous findings. NG tube tip is in the stomach. IMPRESSION: NG tube tip in the stomach.
[2019-01-04] MEDS: PANTOPRAZOLE SODIUM 40 MG VIAL IV SCH (09:36)
[2019-01-04] MEDS: ENOXAPARIN SODIUM INJ 40 MG/0.4 ML DISP.SYRIN SUBCUT SCH (09:36)
[2019-01-04] MEDS: FINASTERIDE 5 MG TABLET PO SCH (09:43)
[2019-01-04] MEDS: TAMSULOSIN HCL 0.4 MG CAP.SR.24H PO SCH (09:43)
[2019-01-04] MEDS: POTASSI CL 20 MEQ/D5-1/2NS 1L 1,000 ML IV PRN (10:24)
--- NOTE | 2019-01-04 11:39 | PDOC PROGRESS REPORT ---
Subjective Progress Note for:: 01/04/19 Reason For Visit: S/P RIGHT HEMICOLECTOMY FOR COLON CANCER Physical Exam Vital Signs: Temp Pulse Resp BP Pulse Ox 97.9 F 93 18 146/85 H 97 01/04/19 07:56 01/04/19 07:56 01/04/19 07:56 01/04/19 07:56 01/04/19 07:56 Intake & Output 01/03/19 01/04/19 01/05/19 06:59 06:59 06:59 Intake Total 2761 3040 97 Output Total 1928 1350 Balance 833 1690 97 Weight 147.1 kg 144.1 kg Results Laboratory Results: 01/04/19 04:40 01/04/19 04:40 01/03/19 01/03/19 01/04/19 18:20 18:20 04:40 WBC 13.6 H 12.9 H RBC 4.35 4.33 L Hgb 12.6 L 12.6 L Hct 37.5 L 37.5 L MCV 86 87 MCH 29.0 29.1 MCHC 33.6 33.6 RDW 14.6 H 14.7 H Plt Count 338 352 Seg Neutrophils % 79.1 H Lymphocytes % 9.0 L Monocytes % 9.8 Eosinophils % 1.3 Basophils % 0.8 Absolute Neutrophils 10.2 H Absolute Lymphocytes 1.2 Absolute Monocytes 1.3 Absolute Eosinophils 0.2 Absolute Basophils 0.1 Sodium 138.9 Potassium 3.5 L Chloride 104 Carbon Dioxide 28 Anion Gap 7 BUN 11 Creatinine 0.99 Est GFR ( Amer) > 60 Est GFR (Non-Af Amer) > 60 Glucose 101 Calcium 8.1 L Phosphorus 3.8 Magnesium 1.9 Total Bilirubin 0.9 AST 46 ALT 55 Alkaline Phosphatase 75 Total Protein 5.2 L Albumin 2.6 L Prealbumin 7.0 L Triglycerides 85 01/04/19 04:40 WBC RBC Hgb Hct MCV MCH MCHC RDW Plt Count Seg Neutrophils % Lymphocytes % Monocytes % Eosinophils % Basophils % Absolute Neutrophils Absolute Lymphocytes Absolute Monocytes Absolute Eosinophils Absolute Basophils Sodium 140.2 Potassium 3.4 L Chloride 105 Carbon Dioxide 27 Anion Gap 8 BUN 11 Creatinine 0.91 Est GFR ( Amer) > 60 Est GFR (Non-Af Amer) > 60 Glucose 107 Calcium 8.0 L Phosphorus Magnesium Total Bilirubin 0.8 AST 41 ALT 51 Alkaline Phosphatase 74 Total Protein 5.2 L Albumin 2.5 L Prealbumin 7.1 L Triglycerides Impressions: Abdomen X-Ray 12/30/18 06:00 IMPRESSION: Postop ileus. Follow-up is recommended to exclude developing small bowel obstruction. KUB X-Ray 01/02/19 06:00 IMPRESSION: Slight increase in the amount of small-bowel distention described. There is persistent colonic air. This most likely represents postoperative ileus although early or partial small bowel obstruction are considerations. Abdomen/Pelvis CT 01/03/19 08:00 IMPRESSION: Pocket of air adjacent to the surgical anastomosis is smaller than previous. There is no generalize free air. Improved appearance of the small bowel loops. Chest X-Ray 01/04/19 00:00 IMPRESSION: NG tube tip in the stomach. 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 Pt feels better again today. NG remains in-place (output appears clear and nonbilious). Still passing flatus per pt report. Afebrile. Leukocytosis improving. Will try to clamp NG today in an attempt to move toward PO intake. Pt is agreeable to this. I have instructed him to notify the nursing staff if he develops nausea. MRSA growing from wound culture isolate. Start IV clindamycin. Cont ambulation and pulmonary toilet. Cont dressing changes for local wound care --> still with seropurulent drainage, no alfreda pus. Cont TPN
[2019-01-04] MEDS: CLINDAMYCIN 900 MG/D5W RTU 900 MG/50 ML RTUPB IV SCH ×2 (13:20→21:08)
[2019-01-04] MEDS: AMINO ACIDS 5 %/DEXTROSE 20 % 1,000 ML IV PRN (17:29)
[2019-01-05] MEDS: CLINDAMYCIN 900 MG/D5W RTU 900 MG/50 ML RTUPB IV SCH (05:14)
[2019-01-05] MEDS: CIPROFLOXACIN 400 MG/D5W RTU 400 MG/200 ML RTUPB IV SCH ×2 (05:14→18:44)
[2019-01-05] MEDS: METRONIDAZOLE 500 MG/NS RTU 500 MG/100 ML RTUPB IV SCH ×2 (05:15→17:01)
[2019-01-05 05:53] LABS: INTERNATIONAL RATION (INR) 1.49; PROTHROMBIN TIME 18.8 SEC (11.4-15.4)
[2019-01-05 05:59] LABS: HEMOGLOBIN 12.1 g/dL (13.5-17.0); MEAN CORPUSCULAR HEMOGLOBIN 29.4 pg (27.0-33.4); MEAN CORPUSCULAR HGB CONC 33.7 g/dL (32.0-36.0); MEAN CORPUSCULAR VOLUME 87 fl (80-97); PLATELET COUNT 342 10^3/uL (150-450); RED BLOOD COUNT 4.12 10^6/uL (4.35-5.55); RED CELL DISTRIBUTION WIDTH 14.9 % (11.5-14.0); WHITE BLOOD COUNT 13.1 10^3/uL (4.0-10.5)
[2019-01-05 06:03] LABS: ALANINE AMINOTRANSFERASE 45 U/L (21-72); ALBUMIN 2.5 g/dL (3.5-5.0); ALKALINE PHOSPHATASE 66 U/L (38-126); ANION GAP 7 (5-19); ASPARTATE AMINO TRANSFERASE 25 U/L (17-59); BILIRUBIN,DIRECT 0.2 mg/dL (0.0-0.4); BILIRUBIN,TOTAL 0.5 mg/dL (0.2-1.3); BLOOD UREA NITROGEN 10 mg/dL (7-20); CARBON DIOXIDE 27 mmol/L (22-30); CHLORIDE 106 mmol/L (98-107); GLUCOSE 109 mg/dL (75-110); POTASSIUM 3.5 mmol/L (3.6-5.0); SODIUM 140.1 mmol/L (137-145); TOTAL PROTEIN 5.1 g/dL (6.3-8.2)
[2019-01-05 06:10] LABS: PREALBUMIN 7.9 mg/dL (17.6-36.0)
[2019-01-05 06:44] LABS: ABSOLUTE LYMPHOCYTES# (MANUAL) 0.9 10^3/uL (0.5-4.7); ABSOLUTE MONOCYTES # (MANUAL) 1.6 10^3/uL (0.1-1.4); ABSOLUTE NEUTROPHILS# (MANUAL) 10.5 10^3/uL (1.7-8.2); BASOPHILS % (MANUAL) 0 % (0-2); EOSINOPHILS % (MANUAL) 1 % (0-6); LYMPHOCYTES % (MANUAL) 7 % (13-45); MONOCYTES % (MANUAL) 12 % (3-13); RBC MORPHOLOGY COMMENT NORMO-CYTIC/CHROMIC; SEGMENTED NEUTROPHILS % (MAN) 80 % (42-78); TOTAL CELLS COUNTED 100
[2019-01-05 06:45] LABS: PLATELET COMMENT ADEQUATE
--- NOTE | 2019-01-05 08:14 | PDOC PROGRESS REPORT ---
Subjective Progress Note for:: 01/05/19 Reason For Visit: S/P RIGHT HEMICOLECTOMY FOR COLON CANCER Physical Exam Vital Signs: Temp Pulse Resp BP Pulse Ox 98.7 F 83 20 156/91 H 96 01/05/19 03:17 01/05/19 03:17 01/05/19 03:17 01/05/19 03:17 01/05/19 03:17 Intake & Output 01/04/19 01/05/19 01/06/19 06:59 06:59 06:59 Intake Total 3040 2025 Output Total 1350 1155 Balance 1690 870 Weight 144.1 kg 140.6 kg Results Laboratory Results: 01/05/19 05:30 01/05/19 05:30 01/05/19 01/05/19 05:30 05:30 WBC 13.1 H RBC 4.12 L Hgb 12.1 L Hct 36.0 L MCV 87 MCH 29.4 MCHC 33.7 RDW 14.9 H Plt Count 342 Seg Neutrophils % Not Reportable Lymphocytes % Not Reportable Monocytes % Not Reportable Eosinophils % Not Reportable Basophils % Not Reportable Absolute Neutrophils Not Reportable Absolute Lymphocytes Not Reportable Absolute Monocytes Not Reportable Absolute Eosinophils Not Reportable Absolute Basophils Not Reportable Sodium 140.1 Potassium 3.5 L Chloride 106 Carbon Dioxide 27 Anion Gap 7 BUN 10 Creatinine 0.86 Est GFR ( Amer) > 60 Est GFR (Non-Af Amer) > 60 Glucose 109 Calcium 8.0 L Total Bilirubin 0.5 AST 25 ALT 45 Alkaline Phosphatase 66 Total Protein 5.1 L Albumin 2.5 L Prealbumin 7.9 L Impressions: Abdomen X-Ray 12/30/18 06:00 IMPRESSION: Postop ileus. Follow-up is recommended to exclude developing small bowel obstruction. KUB X-Ray 01/02/19 06:00 IMPRESSION: Slight increase in the amount of small-bowel distention described. There is persistent colonic air. This most likely represents postoperative ileus although early or partial small bowel obstruction are considerations. Abdomen/Pelvis CT 01/03/19 08:00 IMPRESSION: Pocket of air adjacent to the surgical anastomosis is smaller than previous. There is no generalize free air. Improved appearance of the small bowel loops. Chest X-Ray 01/04/19 00:00 IMPRESSION: NG tube tip in the stomach. 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 The patient reports that he feels good today. He had some pain this morning, however it subsided on its own. The patient has not required morphine or antinausea medicine in quite some time. The patient's NG tube has been clamped since yesterday. He appears to be tolerating this well. I will order a KUB today to visualize his intestinal gas pattern. The patient continues to pass flatus. He denies nausea or vomiting. The open abdominal wound appears clean this morning. His mild leukocytosis is stable at this time. He is afebrile. Continue antibiotics. Continue DVT prophylaxis with Lovenox. Ambulate, aggressive pulmonary toilet.
[2019-01-05] MEDS ORDERED: ONDANSETRON HCL INJ/PF 4 MG/2 ML SDV ONE (09:14)
[2019-01-05] MEDS ORDERED: SUCCINYLCHOLINE CHLORIDE INJ 200 MG/10 ML VIAL ONE (09:14)
[2019-01-05] MEDS ORDERED: ROCURONIUM BROMIDE INJ 50 MG/5 ML VIAL IV ONE (09:14)
[2019-01-05] MEDS: TAMSULOSIN HCL 0.4 MG CAP.SR.24H PO SCH (09:50)
[2019-01-05] MEDS ORDERED: POTASSI CL 20 MEQ/50 ML RIDER 20 MEQ/50 ML RTUPB IV ONE (10:23)
[2019-01-05] MEDS: FAT EMULSIONS 250 ML IV SCH (10:24)
[2019-01-05] MEDS: ENOXAPARIN SODIUM INJ 40 MG/0.4 ML DISP.SYRIN SUBCUT SCH (10:25)
[2019-01-05] MEDS: FINASTERIDE 5 MG TABLET PO SCH (10:26)
--- NOTE | 2019-01-05 16:07 | RADIOLOGY REPORT (SQ) ---
EXAM DESCRIPTION: KUB/ABDOMEN (SINGLE VIEW) COMPLETED DATE/TIME: 01/05/2019 3:50 pm REASON FOR STUDY: f/u ileus COMPARISON: 01/02/2019 NUMBER OF VIEWS: One view. TECHNIQUE: Supine radiographic image of the abdomen acquired. LIMITATIONS: None. FINDINGS: BOWEL GAS PATTERN: Scattered persistent loops of mildly dilated small bowel up to about 4 cm. No high-grade obstruction. There is gas and fecal material from the hepatic flexure to the rect um. CALCIFICATIONS: No suspicious calcifications. SOFT TISSUES: No gross mass or suggestion of organomegaly. HARDWARE: Left paramedian skin donnell. BONES: No bone lesions or fracture. OTHER: No other significant finding. IMPRESSION: Persistent postop ileus. No progression of small bowel dilatation. Continued follow-up is recommended. Reading location - IP/workstation name: [email or web address]
[2019-01-05] MEDS ORDERED: BISACODYL 10 MG SUPP.RECT PR ONE (16:38)
[2019-01-05] MEDS: AMINO ACIDS 5 %/DEXTROSE 20 % 1,000 ML IV PRN (17:24)
[2019-01-05] MEDS: VANCOMYCIN HCL 1,500 MG in DEXTROSE 5%-WATER 250 ML IV SCH (17:24)
[2019-01-05] MEDS: MORPHINE SULFATE 10 MG/ML INJ IV PRN (17:50)
[2019-01-05] MEDS ORDERED: BUPIVACAINE INJ/PF LIPOSOME/PF 266 MG/20 ML SDV ONE (21:06)
[2019-01-05] MEDS ORDERED: MIDAZOLAM 2 MG/2 ML INJ ONE (21:09)
[2019-01-05] MEDS ORDERED: FENTANYL CITRATE INJ/PF 250 MCG/5 ML AMPULE ONE (21:09)
[2019-01-05] MEDS ORDERED: HYDROMORPHONE HCL INJ/PF 2 MG/ML AMPULE ONE (21:09)
[2019-01-05] MEDS ORDERED: PROPOFOL INJ 200 MG/20 ML VIAL IV ONE (21:10)
--- NOTE | 2019-01-05 21:30 | Progress Note ---
Provider Note Provider Note: Called to examine the patient due to significantly increased drainage from the midline wound upper and lower portions. Dr. Haddad evaluated the patient and discovered a fascial dehiscence. Upon discovering this, it was discussed with the patient both by myself and Dr. Haddad the need for exploration, washout of the abdomen, and closure of the fascia. I have discussed with the patient that examination of the anastomosis will be performed with possible ileostomy placement, if necessary. I have conveyed this to the patient and his family members. I have answered their questions. The patient has consented to the operation.
[2019-01-05] MEDS ORDERED: MORPHINE SULFATE 10 MG/ML INJ IV PRN (22:24)
[2019-01-05] MEDS ORDERED: MEPERIDINE HCL/PF INJ 25 MG/1 ML DISP.SYRIN IV PRN (22:24)
[2019-01-05] MEDS ORDERED: PROMETHAZINE HCL INJ 25 MG/1 ML VIAL IV PRN (22:24)
[2019-01-05] MEDS ORDERED: FENTANYL CITRATE INJ/PF 100 MCG/2 ML AMPUL IV PRN ×3 (22:24)
[2019-01-05] MEDS ORDERED: DIPHENHYDRAMINE HCL 50 MG/ML VIAL IV PRN (22:24)
[2019-01-05] MEDS ORDERED: PROPOFOL 1,000 MG/100 ML INFUS..BTL IV ONE (23:02)
[2019-01-06] MEDS ORDERED: FENTANYL CITRATE/PF 600 MCG/60 ML BAG IV PRN (00:01)
[2019-01-06] MEDS ORDERED: MORPHINE SULFATE 60 MG/60 ML RTUINJ IV PRN (00:08)
[2019-01-06] MEDS: METRONIDAZOLE 500 MG/NS RTU 500 MG/100 ML RTUPB IV SCH ×4 (00:15→21:21)
--- NOTE | 2019-01-06 00:20 | RADIOLOGY REPORT (SQ) ---
EXAM DESCRIPTION: XR CHEST 1 VIEW COMPLETED DATE/TME: 01/05/2019 00:00 CLINICAL HISTORY: 73 years, Male, ET Tube placement COMPARISON: 01/04/2019 chest x-ray NUMBER OF VIEWS: 2 TECHNIQUE: Portable chest LIMITATIONS: None. FINDINGS: 2 AP images were submitted. The first is dated 11:54 PM, the second 11:59 PM. On the second submitted image, the tip of the endotracheal tube has been advanced and is approximately 3.5 cm above the monroe. Enteric tube and central venous catheter are in place. No pneumothorax. The heart size is normal. Lungs are clear. Osteopenia. IMPRESSION: On the second submitted image, tip of the endotracheal tube is approximately 3.5 cm above the monroe. Enteric tube and central venous catheter also in place. No pneumothorax. Lungs are clear copyright 2011 [employer]- All Rights Reserved
[2019-01-06] MEDS: PROPOFOL 1,000 MG/100 ML INFUS..BTL IV PRN ×2 (00:23→03:09)
[2019-01-06] MEDS ORDERED: MORPHINE SULFATE 60 MG/60 ML RTUINJ IV ONE (00:57)
[2019-01-06] MEDS: VANCOMYCIN HCL 1,500 MG in DEXTROSE 5%-WATER 250 ML IV SCH ×2 (03:02→16:23)
[2019-01-06 04:14] LABS: HEMATOCRIT 35.3 % (37.9-51.0); HEMOGLOBIN 11.7 g/dL (13.5-17.0); MEAN CORPUSCULAR HGB CONC 33.1 g/dL (32.0-36.0); MEAN CORPUSCULAR VOLUME 88 fl (80-97); PLATELET COUNT 347 10^3/uL (150-450); RED BLOOD COUNT 4.02 10^6/uL (4.35-5.55); RED CELL DISTRIBUTION WIDTH 14.9 % (11.5-14.0); WHITE BLOOD COUNT 19.9 10^3/uL (4.0-10.5)
[2019-01-06 04:25] LABS: ALANINE AMINOTRANSFERASE 31 U/L (21-72); ALBUMIN 2.3 g/dL (3.5-5.0); ALKALINE PHOSPHATASE 51 U/L (38-126); ANION GAP 7 (5-19); ASPARTATE AMINO TRANSFERASE 19 U/L (17-59); BILIRUBIN,DIRECT 0.4 mg/dL (0.0-0.4); BILIRUBIN,TOTAL 0.5 mg/dL (0.2-1.3); BLOOD UREA NITROGEN 11 mg/dL (7-20); CALCIUM 7.7 mg/dL (8.4-10.2); CARBON DIOXIDE 24 mmol/L (22-30); CHLORIDE 107 mmol/L (98-107); GLUCOSE 222 mg/dL (75-110); POTASSIUM 4.4 mmol/L (3.6-5.0); SODIUM 137.9 mmol/L (137-145)
[2019-01-06 04:33] LABS: PREALBUMIN 7.9 mg/dL (17.6-36.0)
[2019-01-06 04:50] LABS: ABSOLUTE LYMPHOCYTES# (MANUAL) 0.4 10^3/uL (0.5-4.7); ABSOLUTE MONOCYTES # (MANUAL) 0.8 10^3/uL (0.1-1.4); ABSOLUTE NEUTROPHILS# (MANUAL) 18.7 10^3/uL (1.7-8.2); ANISOCYTOSIS 1+; BASOPHILS % (MANUAL) 0 % (0-2); EOSINOPHILS % (MANUAL) 0 % (0-6); LYMPHOCYTES % (MANUAL) 2 % (13-45); MONOCYTES % (MANUAL) 4 % (3-13); PLATELET COMMENT ADEQUATE; POLYCHROMASIA 1+; SEGMENTED NEUTROPHILS % (MAN) 94 % (42-78); TOTAL CELLS COUNTED 100
[2019-01-06] MEDS: CIPROFLOXACIN 400 MG/D5W RTU 400 MG/200 ML RTUPB IV SCH ×2 (04:59→18:10)
[2019-01-06] MEDS: INSULIN REG, HUMAN 100 UNIT/ML 3 ML VIAL (PYX) SUBCUT PRN (05:46)
--- NOTE | 2019-01-06 08:12 | Operative Report ---
Nonrecallable Operative Report DATE OF SURGERY: 01/05/19 PREOPERATIVE DIAGNOSIS: fascial dehiscence POSTOPERATIVE DIAGNOSIS: same as above OPERATION: 1. Reopen of recent laparotomy. 2. Sharp, excisional debridement of abdominal wall (10x2 cm). 3. Washout of abdominal cavity. 4. Placement of Vicryl mesh. 5. Placement of negative pressure wound management system SURGEON: HIRO ARREDONDO 1ST SERVICE PLANNER: ALEXIS HADDAD ANESTHESIA: GA TISSUE REMOVED OR ALTERED: abdominal wall debridement COMPLICATIONS: fascial dehiscence ESTIMATED BLOOD LOSS: 50cc PROCEDURE: Indication for the procedure: This is a 73-year-old male approximately postop day 11 from open right hemicolectomy. The patient began having copious amounts of blood and serous drainage from his abdominal wound. This was new. Dr. Haddad assessed the patient at the bedside, discovering an acute fascial dehiscence. The patient was then taken to the operating room to address the fascial dehiscence and prevent evisceration. Drains/implants: 1. 15 Vietnamese round Berto drain x2. 2. 12 inch x 12 inch Vicryl mesh, oriented diagonally. Procedure in detail: After informed consent was obtained, the patient was brought into the operating room and laid in the supine position. The area of the abdomen was prepped and draped in a normal sterile fashion. The previous skin donnell were removed, the subcutaneous tissue was opened using blunt finger fracture dissection. The fascia was then inspected. There was a large rent in the left paramidline abdominal wall. The midline sutures appeared to remain intact, however the left abdominal wall had a large tear within it and there was omentum protruding through the rent. The midline sutures were removed sharply. Very carefully, the abdomen was opened. The torn/nonviable fascia was debrided away sharply and excisionally with curved Ba scissors. The total amount patricia rided was approximately 10 x 2 cm. Once this was completed, exploration of the abdomen was undertaken. The abdomen was serially examined. The small bowel was freely mobile. There were no areas of kinking or obstruction. The anastomosis was visualized and palpated very carefully. There was no evidence of purulence, intra-abdominal abscess, or leakage at the anastomosis. Air was found in the descending and sigmoid colon. The abdomen was then copiously irrigated. A right lateral abdominal wall drain was placed. The 15 Vietnamese round Berto drain was placed into the pelvis. A left-sided abdominal drain was placed. The 15 Vietnamese round Berto drain was placed adjacent to the anastomosis. After this was completed, attention was turned to abdominal wall closure. With the fascial dehiscence and the amount of debridement required, primary closure was thought to be ill advised. Secondary to this a 12 inch x 12 inch Vicryl mesh was brought onto the field. It was placed into the wound. It was laid in an underlay fashion, diagonally. It was sutured to the anterior abdominal wall using circumferential 0 Vicryl suture in simple running fashion. Xeroform was then placed over the Vicryl mesh and a wound VAC was utilized over the Xeroform gauze. The sponge and occlusive dressing were placed in standard fashion. Good seal was noted at the end of the case. With the wound VAC in pl gabe, the procedure was concluded. All sponge, instrument, and needle counts were correct x2. Condition: Fair. Dr. Alexis Haddad was scrubbed and present the entirety of the procedure. He assisted with all portions of the procedure including opening of the abdomen, washout of the abdomen, examination of the anastomosis, placement of the drains, sewing of the mesh, placement of the wound VAC.
[2019-01-06] MEDS: TAMSULOSIN HCL 0.4 MG CAP.SR.24H PO SCH (09:30)
[2019-01-06] MEDS: FINASTERIDE 5 MG TABLET PO SCH (09:30)
[2019-01-06] MEDS: MORPHINE SULFATE 10 MG/ML INJ IV PRN ×3 (10:33→20:19)
[2019-01-06] MEDS: ENOXAPARIN SODIUM INJ 40 MG/0.4 ML DISP.SYRIN SUBCUT SCH (11:17)
--- NOTE | 2019-01-06 11:21 | PDOC PROGRESS REPORT ---
Subjective Progress Note for:: 01/06/19 Reason For Visit: S/P RIGHT HEMICOLECTOMY FOR COLON CANCER Physical Exam Vital Signs: Temp Pulse Resp BP Pulse Ox 100.4 F 104 H 18 112/68 97 01/06/19 08:00 01/06/19 08:00 01/06/19 09:05 01/06/19 08:00 01/06/19 09:05 Intake & Output 01/05/19 01/06/19 01/07/19 06:59 06:59 06:59 Intake Total 2025 5165 60 Output Total 1155 3550 105 Balance 870 1615 -45 Weight 140.6 kg 148.4 kg Results Laboratory Results: 01/06/19 04:00 01/06/19 04:00 01/05/19 01/06/19 01/06/19 05:33 04:00 04:00 WBC 19.9 H RBC 4.02 L Hgb 11.7 L Hct 35.3 L MCV 88 MCH 29.0 MCHC 33.1 RDW 14.9 H Plt Count 347 Seg Neutrophils % Not Reportable Lymphocytes % Not Reportable Monocytes % Not Reportable Eosinophils % Not Reportable Basophils % Not Reportable Absolute Neutrophils Not Reportable Absolute Lymphocytes Not Reportable Absolute Monocytes Not Reportable Absolute Eosinophils Not Reportable Absolute Basophils Not Reportable Sodium 137.9 Potassium 4.4 Chloride 107 Carbon Dioxide 24 Anion Gap 7 BUN 11 Creatinine 0.95 Est GFR ( Amer) > 60 Est GFR (Non-Af Amer) > 60 Glucose 222 H Calcium 7.7 L Phosphorus 3.6 Total Bilirubin 0.5 AST 19 ALT 31 Alkaline Phosphatase 51 Total Protein 5.0 L Albumin 2.3 L Prealbumin 7.9 L 12/31/18 17:40 Abdomen - Incision Site Gram Stain - Final 12/31/18 17:40 Abdomen - Incision Site Wound Culture - Final Enterobacter Aerogenes Mrsa (Meth Resis Staph Aureus) Skin Celeste Impressions: Abdomen X-Ray 12/30/18 06:00 IMPRESSION: Postop ileus. Follow-up is recommended to exclude developing small bowel obstruction. Abdomen/Pelvis CT 01/03/19 08:00 IMPRESSION: Pocket of air adjacent to the surgical anastomosis is smaller than previous. There is no generalize free air. Improved appearance of the small bowel loops. Chest X-Ray 01/05/19 00:00 IMPRESSION: On the second submitted image, tip of the endotracheal tube is approximately 3.5 cm above the monroe. Enteric tube and central venous catheter also in place. No pneumothorax. Lungs are clear copyright 2011 [employer]- All Rights Reserved KUB X-Ray 01/05/19 00:00 IMPRESSION: Persistent postop ileus. No progression of small bowel dilatation. Continued follow-up is recommended. 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 The patient was breathing well on the ventilator this morning. He tolerated CPAP adequately. His tidal volumes were greater than 1100 cc. His NIF was greater than 25. The patient was extubated to a nasal cannula. He is currently breathing well on his own. He denies significant amounts of pain. His urine output has been adequate overnight. His heart rate is controlled. His blood pressure is stable. Lovenox for DVT prophylaxis. Continue TPN for nutritional support. Awaiting bowel function. Continue antibiotics for small amount of perianastomotic air and midline wound infection.
[2019-01-06] MEDS: DEXTROSE 5%-NORMAL SALINE 1,000 ML IV PRN (13:39)
[2019-01-06] MEDS: AMINO ACIDS 5 %/DEXTROSE 20 % 1,000 ML IV PRN (13:40)
[2019-01-06] MEDS: NORMAL SALINE 1000 ML 1,000 ML IV PRN ×2 (18:21→21:21)
[2019-01-07] MEDS: MORPHINE SULFATE 10 MG/ML INJ IV PRN ×6 (00:17→21:12)
[2019-01-07] MEDS: NORMAL SALINE 1000 ML 1,000 ML IV PRN ×5 (00:19→17:27)
[2019-01-07] MEDS: DEXTROSE 5%-NORMAL SALINE 1,000 ML IV PRN ×2 (03:09→17:28)
[2019-01-07] MEDS: VANCOMYCIN HCL 1,500 MG in DEXTROSE 5%-WATER 250 ML IV SCH ×2 (03:09→15:08)
[2019-01-07] MEDS: ONDANSETRON HCL INJ/PF 4 MG/2 ML SDV IV PRN ×2 (04:25→21:18)
[2019-01-07] MEDS: CIPROFLOXACIN 400 MG/D5W RTU 400 MG/200 ML RTUPB IV SCH ×2 (05:00→17:27)
[2019-01-07] MEDS: PHENOL/SODIUM PHENOLATE 100 SPRAY/177 ML BOTTLE PO PRN (05:33)
[2019-01-07] MEDS: METRONIDAZOLE 500 MG/NS RTU 500 MG/100 ML RTUPB IV SCH ×3 (06:06→21:02)
[2019-01-07 06:27] LABS: CALCIUM 7.5 mg/dL (8.4-10.2)
[2019-01-07 06:28] LABS: ALANINE AMINOTRANSFERASE 23 U/L (21-72); ALKALINE PHOSPHATASE 49 U/L (38-126); ASPARTATE AMINO TRANSFERASE 13 U/L (17-59); BILIRUBIN,DIRECT 0.3 mg/dL (0.0-0.4); BILIRUBIN,TOTAL 0.5 mg/dL (0.2-1.3); BLOOD UREA NITROGEN 14 mg/dL (7-20); CARBON DIOXIDE 27 mmol/L (22-30); CHLORIDE 107 mmol/L (98-107); GLUCOSE 161 mg/dL (75-110); POTASSIUM 4.2 mmol/L (3.6-5.0); SODIUM 137.6 mmol/L (137-145); TOTAL PROTEIN 4.5 g/dL (6.3-8.2)
[2019-01-07 06:29] LABS: ANION GAP 6 (5-19); HEMATOCRIT 32.5 % (37.9-51.0); HEMOGLOBIN 10.8 g/dL (13.5-17.0); MEAN CORPUSCULAR HGB CONC 33.3 g/dL (32.0-36.0); MEAN CORPUSCULAR VOLUME 87 fl (80-97); PLATELET COUNT 317 10^3/uL (150-450); RED BLOOD COUNT 3.74 10^6/uL (4.35-5.55)
[2019-01-07 06:30] LABS: ABSOLUTE LYMPHOCYTES# (MANUAL) 2.9 10^3/uL (0.5-4.7); ABSOLUTE MONOCYTES # (MANUAL) 0.8 10^3/uL (0.1-1.4); BASOPHILS % (MANUAL) 0 % (0-2); EOSINOPHILS % (MANUAL) 1 % (0-6); LYMPHOCYTES % (MANUAL) 14 % (13-45); MONOCYTES % (MANUAL) 4 % (3-13); SEGMENTED NEUTROPHILS % (MAN) 81 % (42-78); TOTAL CELLS COUNTED 100
[2019-01-07 06:32] LABS: ANISOCYTOSIS SLIGHT; PLATELET COMMENT ADEQUATE; TOXIC GRANULATION SLIGHT
[2019-01-07] MEDS: TAMSULOSIN HCL 0.4 MG CAP.SR.24H PO SCH (09:02)
[2019-01-07] MEDS: FINASTERIDE 5 MG TABLET PO SCH (09:02)
[2019-01-07] MEDS: ENOXAPARIN SODIUM INJ 40 MG/0.4 ML DISP.SYRIN SUBCUT SCH (09:02)
[2019-01-07] MEDS: AMINO ACIDS 5 %/DEXTROSE 20 % 1,000 ML IV PRN (09:02)
--- NOTE | 2019-01-07 09:27 | RADIOLOGY REPORT (SQ) ---
EXAM DESCRIPTION: CHEST SINGLE VIEW COMPLETED DATE/TIME: 01/07/2019 8:17 am REASON FOR STUDY: fevers, cough COMPARISON: 01/05/2019, 01/04/2019, 01/03/2019 EXAM PARAMETERS: NUMBER OF VIEWS: One view. TECHNIQUE: Single frontal radiographic view of the chest acquired. RADIATION DOSE: NA LIMITATIONS: None. FINDINGS: LUNGS AND PLEURA: Minimal bandlike left retrocardiac atelectasis. Bandlike atelectasis al josiah the right middle lobe. No pleural effusion. No pneumothorax. MEDIASTINUM AND HILAR STRUCTURES: No masses. Contour normal. HEART AND VASCULAR STRUCTURES: Heart normal in size. Normal vasculature. BONES: No acute findings. HARDWARE: Endotracheal tube has been removed. Left jugular central line tip superior vena cava. Oh ogastric tube tip and side port in the stomach. OTHER: No other significant finding. IMPRESSION: Persistent bandlike atelectasis in the right middle lobe and left retrocardiac region TECHNICAL DOCUMENTATION: JOB ID: [id number] [employer]- All Rights Reserved Reading location - IP/workstation name: [email or web address]
[2019-01-07] MEDS: INSULIN REG, HUMAN 100 UNIT/ML 3 ML VIAL (PYX) SUBCUT PRN ×2 (11:53→18:22)
[2019-01-07] MEDS: PANTOPRAZOLE SODIUM 40 MG VIAL IV SCH ×2 (11:58→21:01)
--- NOTE | 2019-01-07 17:56 | PDOC PROGRESS REPORT ---
Subjective Progress Note for:: 01/07/19 Reason For Visit: S/P RIGHT HEMICOLECTOMY FOR COLON CANCER Physical Exam Vital Signs: Temp Pulse Resp BP Pulse Ox 100.1 F 96 21 H 148/80 H 94 01/07/19 16:00 01/07/19 14:00 01/07/19 14:00 01/07/19 14:00 01/07/19 14:00 Intake & Output 01/06/19 01/07/19 01/08/19 06:59 06:59 06:59 Intake Total 5165 5226 5225 Output Total 3550 4310 1545 Balance 3286 157 3833 Weight 148.4 kg 152.9 kg Results Laboratory Results: 01/07/19 05:00 01/07/19 05:00 01/07/19 01/07/19 05:00 05:00 WBC 21.0 H RBC 3.74 L Hgb 10.8 L Hct 32.5 L MCV 87 MCH 29.0 MCHC 33.3 RDW 15.0 H Plt Count 317 Seg Neutrophils % Not Reportable Lymphocytes % Not Reportable Monocytes % Not Reportable Eosinophils % Not Reportable Basophils % Not Reportable Absolute Neutrophils Not Reportable Absolute Lymphocytes Not Reportable Absolute Monocytes Not Reportable Absolute Eosinophils Not Reportable Absolute Basophils Not Reportable Sodium 137.6 Potassium 4.2 Chloride 107 Carbon Dioxide 27 Anion Gap 6 BUN 14 Creatinine 1.00 Est GFR ( Amer) > 60 Est GFR (Non-Af Amer) > 60 Glucose 161 H Calcium 7.5 L Total Bilirubin 0.5 AST 13 L ALT 23 Alkaline Phosphatase 49 Total Protein 4.5 L Albumin 2.0 L Impressions: Abdomen X-Ray 12/30/18 06:00 IMPRESSION: Postop ileus. Follow-up is recommended to exclude developing small bowel obstruction. Abdomen/Pelvis CT 01/03/19 08:00 IMPRESSION: Pocket of air adjacent to the surgical anastomosis is smaller than previous. There is no generalize free air. Improved appearance of the small bowel loops. KUB X-Ray 01/05/19 00:00 IMPRESSION: Persistent postop ileus. No progression of small bowel dilatation. Continued follow-up is recommended. 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 The patient is doing well today. He is in good spirits. He denies any flatus. His urine output is good. His heart rate is controlled. His blood pressure is good. The patient will require wound VAC changed today. Consult physical therapy for mobilization assistance. Continue current pain medication. Low-grade fevers overnight --> Aggressive pulmonary toilet. Will check chest x-ray today. Continue antibiotics for perianastomotic air and wound infection. Lovenox for DVT prophylaxis.
--- NOTE | 2019-01-07 18:00 | Operative Report ---
Nonrecallable Operative Report DATE OF SURGERY: 01/07/19 PREOPERATIVE DIAGNOSIS: Large midline abdominal wound. POSTOPERATIVE DIAGNOSIS: Same as above. OPERATION: 1. Removal of previous negative pressure wound management system. 2. Placement of new negative pressure wound management system. SURGEON: HIRO ARREDONDO ANESTHESIA: Other - Morphine TISSUE REMOVED OR ALTERED: None COMPLICATIONS: None apparent ESTIMATED BLOOD LOSS: None PROCEDURE: Drains/implants: Negative pressure wound management system. Wound VAC. Procedure in detail: The patient was laid in the supine position in the intensive care unit. The previous wound VAC was carefully removed from the patient's abdomen. The Xeroform gauze that was layered over the Vicryl mesh was very carefully removed. The wound was inspected vigorously. No sign of necrosis, abscess, persistent infection, or other significant finding was identified. The Vicryl mesh was intact. Once this was confirmed, a new Xeroform layer was placed over the Vicryl mesh. Next, the black wound VAC sponge was placed over the Xeroform gauze. The occlusive dressing was then placed. Suction was applied via the wound VAC canister. The procedure was at this time concluded. All sponge, instrument, and needle counts were correct. Condition: Fair.
[2019-01-08] MEDS: AMINO ACIDS 5 %/DEXTROSE 20 % 1,000 ML IV PRN ×2 (00:18→12:56)
[2019-01-08] MEDS: MORPHINE SULFATE 10 MG/ML INJ IV PRN ×6 (02:09→22:43)
[2019-01-08] MEDS: ONDANSETRON HCL INJ/PF 4 MG/2 ML SDV IV PRN ×6 (02:10→22:43)
[2019-01-08 03:56] LABS: HEMATOCRIT 32.2 % (37.9-51.0); HEMOGLOBIN 10.7 g/dL (13.5-17.0); MEAN CORPUSCULAR HGB CONC 33.2 g/dL (32.0-36.0); MEAN CORPUSCULAR VOLUME 88 fl (80-97); PLATELET COUNT 335 10^3/uL (150-450); RED BLOOD COUNT 3.69 10^6/uL (4.35-5.55); RED CELL DISTRIBUTION WIDTH 14.8 % (11.5-14.0); WHITE BLOOD COUNT 17.3 10^3/uL (4.0-10.5)
[2019-01-08 04:13] LABS: ABSOLUTE MONOCYTES # (MANUAL) 1.2 10^3/uL (0.1-1.4); ABSOLUTE NEUTROPHILS# (MANUAL) 14.7 10^3/uL (1.7-8.2); ALANINE AMINOTRANSFERASE 24 U/L (21-72); ALKALINE PHOSPHATASE 48 U/L (38-126); ANION GAP 6 (5-19); ASPARTATE AMINO TRANSFERASE 13 U/L (17-59); BAND NEUTROPHILS % (MANUAL) 1 % (3-5); BASOPHILS % (MANUAL) 0 % (0-2); BILIRUBIN,DIRECT 0.4 mg/dL (0.0-0.4); BILIRUBIN,TOTAL 0.6 mg/dL (0.2-1.3); BLOOD UREA NITROGEN 13 mg/dL (7-20); CALCIUM 7.5 mg/dL (8.4-10.2); CARBON DIOXIDE 26 mmol/L (22-30); CHLORIDE 107 mmol/L (98-107); EOSINOPHILS % (MANUAL) 2 % (0-6); GLUCOSE 179 mg/dL (75-110); LYMPHOCYTES % (MANUAL) 6 % (13-45); MONOCYTES % (MANUAL) 7 % (3-13); PHOSPHORUS 2.9 mg/dL (2.5-4.5); POTASSIUM 4.4 mmol/L (3.6-5.0); SEGMENTED NEUTROPHILS % (MAN) 84 % (42-78); SODIUM 139.1 mmol/L (137-145); TOTAL CELLS COUNTED 100; TOTAL PROTEIN 4.5 g/dL (6.3-8.2)
[2019-01-08 04:14] LABS: ANISOCYTOSIS SLIGHT; PLATELET COMMENT ADEQUATE; TOXIC GRANULATION 1+; TOXIC VACUOLATION PRESENT
[2019-01-08 04:20] LABS: VANCOMYCIN,TROUGH 13.8 ug/mL (5.0-20.0)
[2019-01-08] MEDS: DEXTROSE 5%-NORMAL SALINE 1,000 ML IV PRN ×2 (04:37→15:20)
[2019-01-08] MEDS: VANCOMYCIN HCL 1,500 MG in DEXTROSE 5%-WATER 250 ML IV SCH ×2 (04:37→15:20)
[2019-01-08] MEDS: INSULIN REG, HUMAN 100 UNIT/ML 3 ML VIAL (PYX) SUBCUT PRN ×3 (05:40→18:01)
[2019-01-08] MEDS: CIPROFLOXACIN 400 MG/D5W RTU 400 MG/200 ML RTUPB IV SCH ×2 (05:40→17:00)
[2019-01-08] MEDS: METRONIDAZOLE 500 MG/NS RTU 500 MG/100 ML RTUPB IV SCH ×3 (05:40→21:17)
[2019-01-08] MEDS: PROMETHAZINE HCL INJ 25 MG/1 ML VIAL IV PRN (08:34)
[2019-01-08] MEDS: TAMSULOSIN HCL 0.4 MG CAP.SR.24H PO SCH (09:47)
[2019-01-08] MEDS: FINASTERIDE 5 MG TABLET PO SCH (09:48)
[2019-01-08] MEDS: PANTOPRAZOLE SODIUM 40 MG VIAL IV SCH ×2 (10:14→21:17)
[2019-01-08] MEDS: FAT EMULSIONS 250 ML IV SCH (10:15)
[2019-01-08] MEDS: ENOXAPARIN SODIUM INJ 40 MG/0.4 ML DISP.SYRIN SUBCUT SCH (10:15)
--- NOTE | 2019-01-08 15:08 | PDOC PROGRESS REPORT ---
Subjective Progress Note for:: 01/08/19 Reason For Visit: S/P RIGHT HEMICOLECTOMY FOR COLON CANCER Physical Exam Vital Signs: Temp Pulse Resp BP Pulse Ox 97.7 F 94 23 H 174/80 H 100 01/08/19 12:00 01/08/19 14:00 01/08/19 14:00 01/08/19 14:00 01/08/19 14:00 Intake & Output 01/07/19 01/08/19 01/09/19 06:59 06:59 06:59 Intake Total 5226 7809 1620 Output Total 4310 3300 970 Balance 916 4509 650 Weight 152.9 kg 156.8 kg Results Laboratory Results: 01/08/19 03:35 01/08/19 03:35 01/08/19 01/08/19 03:35 03:35 WBC 17.3 H RBC 3.69 L Hgb 10.7 L Hct 32.2 L MCV 88 MCH 29.0 MCHC 33.2 RDW 14.8 H Plt Count 335 Seg Neutrophils % Not Reportable Lymphocytes % Not Reportable Monocytes % Not Reportable Eosinophils % Not Reportable Basophils % Not Reportable Absolute Neutrophils Not Reportable Absolute Lymphocytes Not Reportable Absolute Monocytes Not Reportable Absolute Eosinophils Not Reportable Absolute Basophils Not Reportable Sodium 139.1 Potassium 4.4 Chloride 107 Carbon Dioxide 26 Anion Gap 6 BUN 13 Creatinine 0.95 Est GFR ( Amer) > 60 Est GFR (Non-Af Amer) > 60 Glucose 179 H Calcium 7.5 L Phosphorus 2.9 Total Bilirubin 0.6 AST 13 L ALT 24 Alkaline Phosphatase 48 Total Protein 4.5 L Albumin 2.0 L Prealbumin 5.0 L Impressions: Abdomen X-Ray 12/30/18 06:00 IMPRESSION: Postop ileus. Follow-up is recommended to exclude developing small bowel obstruction. Abdomen/Pelvis CT 01/03/19 08:00 IMPRESSION: Pocket of air adjacent to the surgical anastomosis is smaller than previous. There is no generalize free air. Improved appearance of the small bowel loops. KUB X-Ray 01/05/19 00:00 IMPRESSION: Persistent postop ileus. No progression of small bowel dilatation. Continued follow-up is recommended. 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 The patient is passing flatus today. His drains are productive of serosanguineous fluid. His NG output has been approximately 500 cc in greater than 12 hours. His leukocytosis is improving. Still with intermittent low-grade fevers. Out of bed, physical therapy, pulmonary toilet. Bowel function appears to be returning. Continue NG tube for today. KUB tomorrow. Continue Lovenox for DVT prophylaxis. Continue TPN for now. Continue antibiotics for wound infection and perianastomotic air. Plan to change wound VAC tomorrow.
[2019-01-09] MEDS: INSULIN REG, HUMAN 100 UNIT/ML 3 ML VIAL (PYX) SUBCUT PRN ×4 (00:30→18:40)
[2019-01-09] MEDS: AMINO ACIDS 5 %/DEXTROSE 20 % 1,000 ML IV PRN ×2 (02:21→13:47)
[2019-01-09] MEDS: ONDANSETRON HCL INJ/PF 4 MG/2 ML SDV IV PRN ×5 (02:44→20:50)
[2019-01-09] MEDS: MORPHINE SULFATE 10 MG/ML INJ IV PRN ×5 (02:44→20:50)
[2019-01-09] MEDS: VANCOMYCIN HCL 1,500 MG in DEXTROSE 5%-WATER 250 ML IV SCH ×2 (03:07→15:07)
[2019-01-09] MEDS: CIPROFLOXACIN 400 MG/D5W RTU 400 MG/200 ML RTUPB IV SCH ×2 (05:05→17:13)
[2019-01-09] MEDS: METRONIDAZOLE 500 MG/NS RTU 500 MG/100 ML RTUPB IV SCH ×3 (05:07→21:41)
[2019-01-09 05:22] LABS: ABSOLUTE BASOPHILS # (AUTO) 0.2 10^3/uL (0.0-0.2); ABSOLUTE EOSINOPHILS # (AUTO) 0.3 10^3/uL (0.0-0.6); ABSOLUTE MONOCYTES (AUTO) 1.2 10^3/uL (0.1-1.4); ABSOLUTE NEUT (AUTO) 12.7 10^3/uL (1.7-8.2); BASOPHILS % (AUTO) 1.2 % (0-2); HEMATOCRIT 32.3 % (37.9-51.0); HEMOGLOBIN 10.7 g/dL (13.5-17.0); LYMPHOCYTES % (AUTO) 6.2 % (13-45); MEAN CORPUSCULAR HEMOGLOBIN 28.8 pg (27.0-33.4); MEAN CORPUSCULAR HGB CONC 33.3 g/dL (32.0-36.0); MEAN CORPUSCULAR VOLUME 86 fl (80-97); MONOCYTES % (AUTO) 8.1 % (3-13); PLATELET COUNT 360 10^3/uL (150-450); RED BLOOD COUNT 3.73 10^6/uL (4.35-5.55); RED CELL DISTRIBUTION WIDTH 15.2 % (11.5-14.0); SEGMENTED NEUTROPHILS % (AUTO) 82.5 % (42-78); TOTAL CELLS COUNTED % (AUTO) 100 %; WHITE BLOOD COUNT 15.3 10^3/uL (4.0-10.5)
[2019-01-09 05:35] LABS: ALANINE AMINOTRANSFERASE 24 U/L (21-72); ALBUMIN 1.9 g/dL (3.5-5.0); ALKALINE PHOSPHATASE 60 U/L (38-126); ASPARTATE AMINO TRANSFERASE 9 U/L (17-59); BILIRUBIN,DIRECT 0.2 mg/dL (0.0-0.4); BILIRUBIN,TOTAL 0.5 mg/dL (0.2-1.3); BLOOD UREA NITROGEN 13 mg/dL (7-20); CALCIUM 7.7 mg/dL (8.4-10.2); GLUCOSE 220 mg/dL (75-110); POTASSIUM 4.2 mmol/L (3.6-5.0); TOTAL PROTEIN 4.5 g/dL (6.3-8.2)
[2019-01-09 05:41] LABS: CARBON DIOXIDE 28 mmol/L (22-30); CHLORIDE 104 mmol/L (98-107); SODIUM 135.8 mmol/L (137-145)
[2019-01-09 05:44] LABS: ANION GAP 4 (5-19)
[2019-01-09] MEDS: DEXTROSE 5%-NORMAL SALINE 1,000 ML IV PRN ×2 (07:48→18:40)
--- NOTE | 2019-01-09 08:07 | RADIOLOGY REPORT (SQ) ---
EXAM DESCRIPTION: KUB/ABDOMEN (SINGLE VIEW) COMPLETED DATE/TIME: 01/09/2019 6:54 am REASON FOR STUDY: distention C18.2 MALIGNANT NEOPLASM OF ASCENDING COLON COMPARISON: KUB 01/05/2019, 01/02/2019, 12/30/2018 CT abdomen pelvis 01/03/2019, 01/01/2019 NUMBER OF VIEWS: One view. TECHNIQUE: Supine radiographic image of the abdomen acquired. LIMITATIONS: None. FINDINGS: BOWEL GAS PATTERN: Moderate stool in the transverse colon. Air-filled mildly dilated smal l bowel loops in the mid abdomen. Rectosigmoid and descending colon gas and stool. Bowel gas patter n likely reflects an ileus rather than obstruction. CALCIFICATIONS: No suspicious calcifications. SOFT TISSUES: No gross mass or suggestion of organomegaly. HARDWARE: Anterior abdominal wall surgical donnell seen 01/05/2019 have been removed. There are Jackso n-Su drains in the mid epigastrium and right upper quadrant, wound VAC appliance over the anterior abdominal wall. BONES: No acute findings OTHER: No other significant finding. IMPRESSION: Moderate stool in the transverse colon. Air in borderline distended small bowel loops. Gas and stool in the descending colon and rectosigmoid. Bowel gas pattern likely represents an ileu s. Interval placement of Dawson-Su drains and an anterior abdominal wall wound VAC TECHNICAL DOCUMENTATION: JOB ID: [id number] [employer]- All Rights Reserved Reading location - IP/workstation name: [email or web address]
[2019-01-09] MEDS: TAMSULOSIN HCL 0.4 MG CAP.SR.24H PO SCH (09:03)
[2019-01-09] MEDS: FINASTERIDE 5 MG TABLET PO SCH (09:03)
[2019-01-09] MEDS: PANTOPRAZOLE SODIUM 40 MG VIAL IV SCH ×2 (09:06→21:41)
[2019-01-09] MEDS: ENOXAPARIN SODIUM INJ 40 MG/0.4 ML DISP.SYRIN SUBCUT SCH (09:06)
--- NOTE | 2019-01-09 15:38 | Progress Note ---
Provider Note Provider Note: ID Consult Note Asked to review chart by Pharmacy. Pt not seen or examined. Mr Lafleur is a 73 year old man admitted on 12/25, underwent open R hemicolectomy for colon cancer. On 12/31 a small amount of foul smelling drainage was appreciated from the wound. Cx grew Enterobacter aerogenes, skin marlee, and in broth subculture only MRSA. For N&V CT scan was performed to r/o obstruction on 01/01, which ended up showing a collection of air adjacent to ileocolic anastomosis suspicious for a contained leak. Pt was managed conservatively. Ciprofloxacin and Flagyl started on 01/01. Repeat CT scan on 01/03 showed decrease in size of the pocket of air. On 01/04, with pt still having seropurulent drainage (although no alfreda pus) from surgical wound, anti-MRSA coverage was addeded with IV vancomycin starting on 01/05. On 01/05 he was appreciated to have fascial dehiscence, was taken back to OR for debridement of abdominal wall, washout of abdominal cavity, mesh placement, vac placement, drain placement. Per op note, no purulence or intraabdominal abscess or leakage from anastomosis was appreciated. On 01/07, pt returned to OR for wound VAC change, at which time no sign of necrosis, abscess or persistent infection was found. Most recently, he has been having intermittent low grade-fevers. WBC count elevated but improving some. Cr stable. Impression/Recommendations Pt has been receiving antibiotics for ileocolic anastomotic leak and wound infection. Generally for skin/soft tissue infection, around 5-7 days should be adequate, particularly if there is source control with debridement. From the standpoint of gut function, leukocytosis, fever, he has some improvement noted. Would not continue antibiotics for a long time, but I defer duration of antimicrobial therapy to his surgeon. Drake Willoughby MD [facility] Infectious Diseases pager [phone]
[2019-01-09] MEDS: PROMETHAZINE HCL INJ 25 MG/1 ML VIAL IV PRN (22:55)
[2019-01-10] MEDS: INSULIN REG, HUMAN 100 UNIT/ML 3 ML VIAL (PYX) SUBCUT PRN ×4 (00:41→17:20)
[2019-01-10] MEDS: ONDANSETRON HCL INJ/PF 4 MG/2 ML SDV IV PRN ×5 (00:50→18:15)
[2019-01-10] MEDS: MORPHINE SULFATE 10 MG/ML INJ IV PRN ×6 (00:50→22:29)
[2019-01-10] MEDS: VANCOMYCIN HCL 1,500 MG in DEXTROSE 5%-WATER 250 ML IV SCH ×2 (03:39→17:00)
[2019-01-10] MEDS: AMINO ACIDS 5 %/DEXTROSE 20 % 1,000 ML IV PRN ×2 (03:42→17:09)
[2019-01-10] MEDS: CIPROFLOXACIN 400 MG/D5W RTU 400 MG/200 ML RTUPB IV SCH ×2 (05:25→17:08)
[2019-01-10] MEDS: METRONIDAZOLE 500 MG/NS RTU 500 MG/100 ML RTUPB IV SCH ×3 (05:27→21:50)
--- NOTE | 2019-01-10 08:46 | PDOC PROGRESS REPORT ---
Subjective Reason For Visit: S/P RIGHT HEMICOLECTOMY FOR COLON CANCER Physical Exam Vital Signs: Temp Pulse Resp BP Pulse Ox 98.6 F 97 22 H 148/100 H 94 01/09/19 16:00 01/09/19 18:22 01/09/19 18:22 01/09/19 18:22 01/09/19 18:22 Intake & Output 01/08/19 01/09/19 01/10/19 06:59 06:59 06:59 Intake Total 7809 5689 2407 Output Total 3309 2895 1950 Balance 4509 2752 457 Weight 156.8 kg 157.8 kg Results Laboratory Results: 01/09/19 05:13 01/09/19 05:13 01/09/19 01/09/19 05:13 05:13 WBC 15.3 H RBC 3.73 L Hgb 10.7 L Hct 32.3 L MCV 86 MCH 28.8 MCHC 33.3 RDW 15.2 H Plt Count 360 Seg Neutrophils % 82.5 H Lymphocytes % 6.2 L Monocytes % 8.1 Eosinophils % 2.0 Basophils % 1.2 Absolute Neutrophils 12.7 H Absolute Lymphocytes 1.0 Absolute Monocytes 1.2 Absolute Eosinophils 0.3 Absolute Basophils 0.2 Sodium 135.8 L Potassium 4.2 Chloride 104 Carbon Dioxide 28 Anion Gap 4 L BUN 13 Creatinine 0.98 Est GFR ( Amer) > 60 Est GFR (Non-Af Amer) > 60 Glucose 220 H Calcium 7.7 L Total Bilirubin 0.5 AST 9 L ALT 24 Alkaline Phosphatase 60 Total Protein 4.5 L Albumin 1.9 L Impressions: Abdomen X-Ray 12/30/18 06:00 IMPRESSION: Postop ileus. Follow-up is recommended to exclude developing small bowel obstruction. Abdomen/Pelvis CT 01/03/19 08:00 IMPRESSION: Pocket of air adjacent to the surgical anastomosis is smaller than previous. There is no generalize free air. Improved appearance of the small bowel loops. Chest X-Ray 01/07/19 00:00 IMPRESSION: Persistent bandlike atelectasis in the right middle lobe and left retrocardiac region KUB X-Ray 01/09/19 08:00 IMPRESSION: Moderate stool in the transverse colon. Air in borderline distended small bowel loops. Gas and stool in the descending colon and rectosigmoid. Bowel gas pattern likely represents an ileus. 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 Doing well. Passing flatus. Minimal NG output D/c NG tube and begin sips of clears. Cont TPN for severe malnutrition. Cont current Pain meds Lovenox for DVT proph. PT/OT for mobilization.
--- NOTE | 2019-01-10 08:50 | PDOC PROGRESS REPORT ---
Subjective Progress Note for:: 01/10/19 Reason For Visit: S/P RIGHT HEMICOLECTOMY FOR COLON CANCER Physical Exam Vital Signs: Temp Pulse Resp BP Pulse Ox 98.6 F 92 19 165/99 H 96 01/10/19 08:00 01/10/19 08:00 01/10/19 08:00 01/10/19 08:00 01/10/19 08:00 Intake & Output 01/09/19 01/10/19 01/11/19 06:59 06:59 06:59 Intake Total 5688 3507 Output Total 2898 2508 400 Balance 2752 -533 -400 Weight 157.8 kg 157.1 kg Results Laboratory Results: 01/09/19 05:13 01/09/19 05:13 Impressions: Abdomen X-Ray 12/30/18 06:00 IMPRESSION: Postop ileus. Follow-up is recommended to exclude developing small bowel obstruction. Abdomen/Pelvis CT 01/03/19 08:00 IMPRESSION: Pocket of air adjacent to the surgical anastomosis is smaller than previous. There is no generalize free air. Improved appearance of the small bowel loops. Chest X-Ray 01/07/19 00:00 IMPRESSION: Persistent bandlike atelectasis in the right middle lobe and left retrocardiac region KUB X-Ray 01/09/19 08:00 IMPRESSION: Moderate stool in the transverse colon. Air in borderline distended small bowel loops. Gas and stool in the descending colon and rectosigmoid. Bowel gas pattern likely represents an ileus. 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 Continues to pass large amounts of flatus. No nausea after NG removal. Tolerating sips of clears. OOB/PT. Lovenox for DVT proph. Wound VAC change today. Aggressive pulmonary toilet. Advance to full liquids. Add stool softeners. Cont Abx until return of bowel function. AM labs pending.
[2019-01-10 09:17] LABS: ABSOLUTE BASOPHILS # (AUTO) 0.1 10^3/uL (0.0-0.2); ABSOLUTE EOSINOPHILS # (AUTO) 0.3 10^3/uL (0.0-0.6); ABSOLUTE LYMPHOCYTES (AUTO) 0.8 10^3/uL (0.5-4.7); ABSOLUTE MONOCYTES (AUTO) 1.2 10^3/uL (0.1-1.4); ABSOLUTE NEUT (AUTO) 10.6 10^3/uL (1.7-8.2); BASOPHILS % (AUTO) 0.5 % (0-2); EOSINOPHILS % (AUTO) 2.6 % (0-6); HEMATOCRIT 32.1 % (37.9-51.0); HEMOGLOBIN 10.7 g/dL (13.5-17.0); LYMPHOCYTES % (AUTO) 5.8 % (13-45); MEAN CORPUSCULAR HEMOGLOBIN 28.5 pg (27.0-33.4); MEAN CORPUSCULAR HGB CONC 33.2 g/dL (32.0-36.0); MEAN CORPUSCULAR VOLUME 86 fl (80-97); MONOCYTES % (AUTO) 9.4 % (3-13); PLATELET COUNT 396 10^3/uL (150-450); RED BLOOD COUNT 3.74 10^6/uL (4.35-5.55); RED CELL DISTRIBUTION WIDTH 14.9 % (11.5-14.0); SEGMENTED NEUTROPHILS % (AUTO) 81.7 % (42-78); TOTAL CELLS COUNTED % (AUTO) 100 %
[2019-01-10 09:33] LABS: ANION GAP 6 (5-19); BLOOD UREA NITROGEN 14 mg/dL (7-20); CARBON DIOXIDE 28 mmol/L (22-30); CHLORIDE 103 mmol/L (98-107); GLUCOSE 232 mg/dL (75-110); POTASSIUM 4.3 mmol/L (3.6-5.0); SODIUM 136.5 mmol/L (137-145)
--- NOTE | 2019-01-10 09:35 | Operative Report ---
Nonrecallable Operative Report DATE OF SURGERY: 01/10/19 PREOPERATIVE DIAGNOSIS: Large open abdominal wound status post Vicryl mesh abdominal closure POSTOPERATIVE DIAGNOSIS: Same as above OPERATION: 1. Removal of negative pressure wound management system. 2. Placement of new negative pressure wound management system to large abdominal wound. SURGEON: HIRO ARREDONDO ANESTHESIA: Other - morphine TISSUE REMOVED OR ALTERED: None COMPLICATIONS: None apparent ESTIMATED BLOOD LOSS: Minimal PROCEDURE: Drains/implants: Medium wound VAC sponge. Procedure in detail: After informed consent was obtained, patient was laid in supine position in the intensive care unit. The previous wound VAC was removed from the patient very carefully. The old Xeroform gauze was completely removed. The Vicryl mesh was then inspected. There was no persistent abscess cavities or fluid collections. The Vicryl mesh remained in place. A new layer of Xeroform gauze was placed over the Vicryl mesh. A medium wound VAC sponge was split in half and layered in the midline. The occlusive dressing was placed over the sponge, and suction was attached. The VAC held good suction, with no evidence of leak. At this time the procedure was concluded. All sponge, instrument, and needle counts were correct x2. Condition: Fair.
[2019-01-10] MEDS: BISACODYL 5 MG TABEC PO SCH ×2 (10:08→17:08)
[2019-01-10] MEDS: TAMSULOSIN HCL 0.4 MG CAP.SR.24H PO SCH (10:09)
[2019-01-10] MEDS: ENOXAPARIN SODIUM INJ 40 MG/0.4 ML DISP.SYRIN SUBCUT SCH (10:09)
[2019-01-10] MEDS: PANTOPRAZOLE SODIUM 40 MG VIAL IV SCH ×3 (10:09→21:50)
[2019-01-10] MEDS: FINASTERIDE 5 MG TABLET PO SCH (10:09)
[2019-01-10] MEDS: DEXTROSE 5%-NORMAL SALINE 1,000 ML IV PRN ×2 (12:48→21:50)
[2019-01-11] MEDS: INSULIN REG, HUMAN 100 UNIT/ML 3 ML VIAL (PYX) SUBCUT PRN ×4 (00:30→17:12)
[2019-01-11] MEDS: MORPHINE SULFATE 10 MG/ML INJ IV PRN ×5 (03:15→22:33)
[2019-01-11] MEDS: ONDANSETRON HCL INJ/PF 4 MG/2 ML SDV IV PRN ×5 (03:19→22:33)
[2019-01-11] MEDS: VANCOMYCIN HCL 1,500 MG in DEXTROSE 5%-WATER 250 ML IV SCH ×2 (04:29→16:20)
[2019-01-11 04:56] LABS: ALANINE AMINOTRANSFERASE 27 U/L (21-72); ALBUMIN 1.8 g/dL (3.5-5.0); ALKALINE PHOSPHATASE 61 U/L (38-126); ASPARTATE AMINO TRANSFERASE 11 U/L (17-59); BILIRUBIN,DIRECT 0.3 mg/dL (0.0-0.4); BILIRUBIN,TOTAL 0.4 mg/dL (0.2-1.3); BLOOD UREA NITROGEN 16 mg/dL (7-20); CALCIUM 7.9 mg/dL (8.4-10.2); GLUCOSE 339 mg/dL (75-110); POTASSIUM 4.5 mmol/L (3.6-5.0); TOTAL PROTEIN 4.4 g/dL (6.3-8.2)
[2019-01-11 05:01] LABS: CARBON DIOXIDE 28 mmol/L (22-30); CHLORIDE 103 mmol/L (98-107); SODIUM 135.4 mmol/L (137-145)
[2019-01-11 05:06] LABS: ANION GAP 4 (5-19)
[2019-01-11] MEDS: CIPROFLOXACIN 400 MG/D5W RTU 400 MG/200 ML RTUPB IV SCH ×2 (05:17→17:14)
[2019-01-11] MEDS: METRONIDAZOLE 500 MG/NS RTU 500 MG/100 ML RTUPB IV SCH ×3 (05:17→22:33)
[2019-01-11] MEDS: AMINO ACIDS 5 %/DEXTROSE 20 % 1,000 ML IV PRN ×2 (05:17→17:53)
[2019-01-11] MEDS: PROMETHAZINE HCL INJ 25 MG/1 ML VIAL IV PRN (10:21)
[2019-01-11] MEDS: BISACODYL 5 MG TABEC PO SCH ×2 (10:21→17:13)
[2019-01-11] MEDS: TAMSULOSIN HCL 0.4 MG CAP.SR.24H PO SCH (10:21)
[2019-01-11] MEDS: ENOXAPARIN SODIUM INJ 40 MG/0.4 ML DISP.SYRIN SUBCUT SCH (10:21)
[2019-01-11] MEDS: FINASTERIDE 5 MG TABLET PO SCH (10:21)
[2019-01-11] MEDS: PANTOPRAZOLE SODIUM 40 MG VIAL IV SCH ×2 (10:22→22:33)
--- NOTE | 2019-01-11 13:10 | PDOC PROGRESS REPORT ---
Subjective Reason For Visit: S/P RIGHT HEMICOLECTOMY FOR COLON CANCER Physical Exam Vital Signs: Temp Pulse Resp BP Pulse Ox 97.9 F 94 20 148/94 H 96 01/11/19 12:00 01/11/19 12:00 01/11/19 12:00 01/11/19 12:00 01/11/19 12:00 Intake & Output 01/10/19 01/11/19 01/12/19 06:59 06:59 06:59 Intake Total 4957 4403 1000 Output Total 4040 4104 760 Balance 917 299 240 Weight 157.1 kg 158.6 kg Results Laboratory Results: 01/10/19 08:55 01/11/19 04:35 01/11/19 04:35 Sodium 135.4 L Potassium 4.5 Chloride 103 Carbon Dioxide 28 Anion Gap 4 L BUN 16 Creatinine 1.03 Est GFR ( Amer) > 60 Est GFR (Non-Af Amer) > 60 Glucose 339 H Calcium 7.9 L Total Bilirubin 0.4 AST 11 L ALT 27 Alkaline Phosphatase 61 Total Protein 4.4 L Albumin 1.8 L Impressions: Abdomen X-Ray 12/30/18 06:00 IMPRESSION: Postop ileus. Follow-up is recommended to exclude developing small bowel obstruction. Abdomen/Pelvis CT 01/03/19 08:00 IMPRESSION: Pocket of air adjacent to the surgical anastomosis is smaller than previous. There is no generalize free air. Improved appearance of the small bowel loops. Chest X-Ray 01/07/19 00:00 IMPRESSION: Persistent bandlike atelectasis in the right middle lobe and left retrocardiac region KUB X-Ray 01/09/19 08:00 IMPRESSION: Moderate stool in the transverse colon. Air in borderline distended small bowel loops. Gas and stool in the descending colon and rectosigmoid. Bowel gas pattern likely represents an ileus. 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 Continues to pass large amounts of flatus. No nausea. Tolerating full liquids. Pt working with PT and is able to stand with significant assistance OOB/PT. Lovenox for DVT proph. Aggressive pulmonary toilet. Cont full liquids. Cont stool softeners. Cont Abx until return of bowel function. Transfer to floor. Maintain vasquez until more steady on his feet. Likely D/C vasquez tomorrow. Cont TPN.
[2019-01-11] MEDS ORDERED: FUROSEMIDE INJ/PF 40 MG/4 ML SDV IV ONE (14:00)
[2019-01-11] MEDS: HYDROCODONE/ACETAMINOPHEN 10-325 MG TABLET PO PRN (15:04)
[2019-01-12] MEDS: INSULIN REG, HUMAN 100 UNIT/ML 3 ML VIAL (PYX) SUBCUT PRN ×5 (01:09→21:49)
[2019-01-12] MEDS: HYDROCODONE/ACETAMINOPHEN 10-325 MG TABLET PO PRN (01:49)
[2019-01-12] MEDS: VANCOMYCIN HCL 1,500 MG in DEXTROSE 5%-WATER 250 ML IV SCH (03:59)
[2019-01-12] MEDS: ONDANSETRON HCL INJ/PF 4 MG/2 ML SDV IV PRN ×3 (04:04→17:13)
[2019-01-12] MEDS: MORPHINE SULFATE 10 MG/ML INJ IV PRN ×4 (04:04→21:42)
[2019-01-12] MEDS: AMINO ACIDS 5 %/DEXTROSE 20 % 1,000 ML IV PRN ×2 (04:49→17:14)
[2019-01-12] MEDS: CIPROFLOXACIN 400 MG/D5W RTU 400 MG/200 ML RTUPB IV SCH ×2 (06:10→17:13)
[2019-01-12] MEDS: METRONIDAZOLE 500 MG/NS RTU 500 MG/100 ML RTUPB IV SCH ×3 (06:10→21:44)
[2019-01-12 06:41] LABS: HEMATOCRIT 31.5 % (37.9-51.0); HEMOGLOBIN 10.7 g/dL (13.5-17.0); MEAN CORPUSCULAR HEMOGLOBIN 29.1 pg (27.0-33.4); MEAN CORPUSCULAR HGB CONC 33.8 g/dL (32.0-36.0); MEAN CORPUSCULAR VOLUME 86 fl (80-97); PLATELET COUNT 427 10^3/uL (150-450); RED BLOOD COUNT 3.66 10^6/uL (4.35-5.55); RED CELL DISTRIBUTION WIDTH 15.1 % (11.5-14.0); WHITE BLOOD COUNT 12.5 10^3/uL (4.0-10.5)
[2019-01-12 06:47] LABS: PROTHROMBIN TIME 19.8 SEC (11.4-15.4)
[2019-01-12 07:10] LABS: ALANINE AMINOTRANSFERASE 22 U/L (21-72); ALBUMIN 2.2 g/dL (3.5-5.0); ALKALINE PHOSPHATASE 65 U/L (38-126); ANION GAP 5 (5-19); ASPARTATE AMINO TRANSFERASE 11 U/L (17-59); BILIRUBIN,DIRECT 0.3 mg/dL (0.0-0.4); BILIRUBIN,TOTAL 0.6 mg/dL (0.2-1.3); BLOOD UREA NITROGEN 20 mg/dL (7-20); CALCIUM 8.3 mg/dL (8.4-10.2); CARBON DIOXIDE 29 mmol/L (22-30); CHLORIDE 100 mmol/L (98-107); GLUCOSE 286 mg/dL (75-110); PHOSPHORUS 3.9 mg/dL (2.5-4.5); POTASSIUM 4.5 mmol/L (3.6-5.0); SODIUM 134.3 mmol/L (137-145)
[2019-01-12 07:17] LABS: PREALBUMIN 10.2 mg/dL (17.6-36.0)
[2019-01-12] MEDS ORDERED: NA PHOS,M-B/NA PHOS,DI-BA (ADULT) 133 ML ENEMA PR ONE (09:00)
--- NOTE | 2019-01-12 09:18 | PDOC PROGRESS REPORT ---
Subjective Reason For Visit: S/P RIGHT HEMICOLECTOMY FOR COLON CANCER Physical Exam Vital Signs: Temp Pulse Resp BP Pulse Ox 97.9 F 101 H 19 92/75 L 96 01/12/19 05:58 01/12/19 05:58 01/12/19 06:00 01/12/19 05:58 01/12/19 06:00 Intake & Output 01/11/19 01/12/19 01/13/19 06:59 06:59 06:59 Intake Total 4405 3822 300 Output Total 4103 6301 Balance 299 -841 300 Weight 158.6 kg 157.3 kg Results Laboratory Results: 01/12/19 06:30 01/12/19 06:30 01/12/19 01/12/19 06:30 06:30 WBC 12.5 H RBC 3.66 L Hgb 10.7 L Hct 31.5 L MCV 86 MCH 29.1 MCHC 33.8 RDW 15.1 H Plt Count 427 Sodium 134.3 L Potassium 4.5 Chloride 100 Carbon Dioxide 29 Anion Gap 5 BUN 20 Creatinine 1.16 Est GFR ( Amer) > 60 Est GFR (Non-Af Amer) > 60 Glucose 286 H Calcium 8.3 L Phosphorus 3.9 Magnesium 1.9 Total Bilirubin 0.6 AST 11 L ALT 22 Alkaline Phosphatase 65 Total Protein 5.0 L Albumin 2.2 L Prealbumin 10.2 L Impressions: Abdomen X-Ray 12/30/18 06:00 IMPRESSION: Postop ileus. Follow-up is recommended to exclude developing small bowel obstruction. Abdomen/Pelvis CT 01/03/19 08:00 IMPRESSION: Pocket of air adjacent to the surgical anastomosis is smaller than previous. There is no generalize free air. Improved appearance of the small bowel loops. Chest X-Ray 01/07/19 00:00 IMPRESSION: Persistent bandlike atelectasis in the right middle lobe and left retrocardiac region KUB X-Ray 01/09/19 08:00 IMPRESSION: Moderate stool in the transverse colon. Air in borderline distended small bowel loops. Gas and stool in the descending colon and rec tosigmoid. Bowel gas pattern likely represents an ileus. 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 Continues to pass large amounts of flatus. No nausea. Tolerating full liquids. Pt working with PT and is able to stand with significant assistance. Spent a large portion of the day yesterday up in a chair. He still has a significant amount of pain when moving/ambulating. OOB/PT. Lovenox for DVT proph. Aggressive pulmonary toilet. Advance to soft diet. Cont stool softeners. Enema today. Cont Abx until return of bowel function. D/c vasquez today. Malnutrition --> Cont TPN until pt tolerating regular diet. Add oral pain meds.
[2019-01-12] MEDS: PANTOPRAZOLE SODIUM 40 MG VIAL IV SCH ×2 (10:21→21:43)
[2019-01-12] MEDS: ENOXAPARIN SODIUM INJ 40 MG/0.4 ML DISP.SYRIN SUBCUT SCH (10:21)
[2019-01-12] MEDS: FINASTERIDE 5 MG TABLET PO SCH (10:22)
[2019-01-12] MEDS: BISACODYL 5 MG TABEC PO SCH ×2 (10:22→17:13)
[2019-01-12] MEDS: TAMSULOSIN HCL 0.4 MG CAP.SR.24H PO SCH (10:22)
[2019-01-12] MEDS: FAT EMULSIONS 250 ML IV SCH (10:35)
[2019-01-12] MEDS: PROMETHAZINE HCL INJ 25 MG/1 ML VIAL IV PRN (21:40)
[2019-01-13] MEDS: METRONIDAZOLE 500 MG/NS RTU 500 MG/100 ML RTUPB IV SCH ×2 (05:35→13:23)
[2019-01-13] MEDS: AMINO ACIDS 5 %/DEXTROSE 20 % 1,000 ML IV PRN ×2 (05:35→18:58)
[2019-01-13] MEDS: CIPROFLOXACIN 400 MG/D5W RTU 400 MG/200 ML RTUPB IV SCH (06:47)
[2019-01-13] MEDS: INSULIN REG, HUMAN 100 UNIT/ML 3 ML VIAL (PYX) SUBCUT PRN ×3 (07:25→21:45)
[2019-01-13] MEDS: HYDROCODONE/ACETAMINOPHEN 10-325 MG TABLET PO PRN ×4 (07:35→23:06)
[2019-01-13] MEDS: ONDANSETRON HCL INJ/PF 4 MG/2 ML SDV IV PRN ×3 (07:39→23:06)
[2019-01-13] MEDS: PANTOPRAZOLE SODIUM 40 MG VIAL IV SCH (09:15)
[2019-01-13] MEDS: ENOXAPARIN SODIUM INJ 40 MG/0.4 ML DISP.SYRIN SUBCUT SCH (09:16)
[2019-01-13] MEDS: TAMSULOSIN HCL 0.4 MG CAP.SR.24H PO SCH (09:17)
[2019-01-13] MEDS: FINASTERIDE 5 MG TABLET PO SCH (09:17)
[2019-01-13] MEDS: BISACODYL 5 MG TABEC PO SCH ×2 (09:17→17:16)
--- NOTE | 2019-01-13 19:45 | PDOC PROGRESS REPORT ---
Subjective Progress Note for:: 01/13/19 Reason For Visit: S/P RIGHT HEMICOLECTOMY FOR COLON CANCER Physical Exam Vital Signs: Temp Pulse Resp BP Pulse Ox 98.3 F 90 17 92/71 L 97 01/13/19 15:48 01/13/19 15:48 01/13/19 15:48 01/13/19 15:48 01/13/19 15:48 Intake & Output 01/12/19 01/13/19 01/14/19 06:59 06:59 06:59 Intake Total 3829 3270 1655 Output Total 4686 2455 200 Balance -298 801 0596 Weight 157.3 kg 154.9 kg Results Laboratory Results: 01/12/19 06:30 01/12/19 06:30 01/12/19 19:50 Triglycerides 92 Impressions: Abdomen X-Ray 12/30/18 06:00 IMPRESSION: Postop ileus. Follow-up is recommended to exclude developing small bowel obstruction. Abdomen/Pelvis CT 01/03/19 08:00 IMPRESSION: Pocket of air adjacent to the surgical anastomosis is smaller than previous. There is no generalize free air. Improved appearance of the small bowel loops. Chest X-Ray 01/07/19 00:00 IMPRESSION: Persistent bandlike atelectasis in the right middle lobe and left retrocardiac region KUB X-Ray 01/09/19 08:00 IMPRESSION: Moderate stool in the transverse colon. Air in borderline distended small bowel loops. Gas and stool in the descending colon and rectosigmoid. Bowel gas pattern likely represents an ileus. 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 Continues to pass large amounts of flatus. No nausea. Tolerating regular diet. Pt working with PT and is able to stand with significant assistance. He still has a significant amount of pain when moving/ambulating. OOB/PT. Lovenox for DVT proph. Aggressive pulmonary toilet. Small BM with enema administration. Still passing large amount of flatus. Cont Abx until course is complete Malnutrition --> Tolerating regular diet. D/c TPN after today's dose. social services manager for d/c planning. change wound VAC today or tomorrow.
[2019-01-13] MEDS ORDERED: METOPROLOL TARTRATE PF/INJ 5 MG/5 ML SDV IV ONE ×2 (20:33→20:45)
[2019-01-14] MEDS: ONDANSETRON HCL INJ/PF 4 MG/2 ML SDV IV PRN ×4 (03:58→21:56)
[2019-01-14] MEDS: HYDROCODONE/ACETAMINOPHEN 10-325 MG TABLET PO PRN ×4 (03:58→21:56)
[2019-01-14] MEDS: INSULIN REG, HUMAN 100 UNIT/ML 3 ML VIAL (PYX) SUBCUT PRN (06:52)
[2019-01-14] MEDS: ENOXAPARIN SODIUM INJ 40 MG/0.4 ML DISP.SYRIN SUBCUT SCH (10:27)
[2019-01-14] MEDS: TAMSULOSIN HCL 0.4 MG CAP.SR.24H PO SCH (10:27)
[2019-01-14] MEDS: BISACODYL 5 MG TABEC PO SCH ×2 (10:27→17:23)
[2019-01-14] MEDS: FINASTERIDE 5 MG TABLET PO SCH (10:27)
--- NOTE | 2019-01-14 19:40 | PDOC PROGRESS REPORT ---
Subjective Progress Note for:: 01/14/19 Reason For Visit: S/P RIGHT HEMICOLECTOMY FOR COLON CANCER Physical Exam Vital Signs: Temp Pulse Resp BP Pulse Ox 97.4 F 82 20 112/72 98 01/14/19 15:17 01/14/19 15:17 01/14/19 15:17 01/14/19 15:17 01/14/19 15:17 Intake & Output 01/13/19 01/14/19 01/15/19 06:59 06:59 06:59 Intake Total 3270 2655 488 Output Total 2455 1970 1100 Balance 815 685 -612 Weight 154.9 kg 151.7 kg Results Laboratory Results: 01/12/19 06:30 01/12/19 06:30 Impressions: Abdomen X-Ray 12/30/18 06:00 IMPRESSION: Postop ileus. Follow-up is recommended to exclude developing small bowel obstruction. Abdomen/Pelvis CT 01/03/19 08:00 IMPRESSION: Pocket of air adjacent to the surgical anastomosis is smaller than previous. There is no generalize free air. Improved appearance of the small bowel loops. Chest X-Ray 01/07/19 00:00 IMPRESSION: Persistent bandlike atelectasis in the right middle lobe and left retrocardiac region KUB X-Ray 01/09/19 08:00 IMPRESSION: Moderate stool in the transverse colon. Air in borderline distended small bowel loops. Gas and stool in the descending colon and rectosigmoid. Bowel gas pattern likely represents an ileus. 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 Continues to pass large amounts of flatus. No nausea. Tolerating regular diet. Pt working with PT and is able to stand with assistance. His pain is improving. OOB/PT. Lovenox for DVT proph. Aggressive pulmonary toilet. Small BM with enema administration. Still passing large amount of flatus. increa se stool softeners. social contact worker for d/c planning. wound VAC changed at bedside today. Wound base is healthy without signs of purulence
[2019-01-15] MEDS: HYDROCODONE/ACETAMINOPHEN 10-325 MG TABLET PO PRN ×3 (07:23→20:46)
[2019-01-15] MEDS: ONDANSETRON HCL INJ/PF 4 MG/2 ML SDV IV PRN ×3 (07:23→20:47)
[2019-01-15 09:15] LABS: ALANINE AMINOTRANSFERASE 31 U/L (21-72); ALBUMIN 2.2 g/dL (3.5-5.0); ALKALINE PHOSPHATASE 73 U/L (38-126); ASPARTATE AMINO TRANSFERASE 19 U/L (17-59); BILIRUBIN,DIRECT 0.3 mg/dL (0.0-0.4); BILIRUBIN,TOTAL 0.4 mg/dL (0.2-1.3); BLOOD UREA NITROGEN 20 mg/dL (7-20); CALCIUM 8.2 mg/dL (8.4-10.2); GLUCOSE 106 mg/dL (75-110); PHOSPHORUS 5.1 mg/dL (2.5-4.5); POTASSIUM 4.6 mmol/L (3.6-5.0); TOTAL PROTEIN 5.1 g/dL (6.3-8.2)
[2019-01-15 09:21] LABS: ANION GAP 6 (5-19); CARBON DIOXIDE 29 mmol/L (22-30); CHLORIDE 104 mmol/L (98-107); SODIUM 138.7 mmol/L (137-145)
[2019-01-15 09:24] LABS: PREALBUMIN 13.9 mg/dL (17.6-36.0)
[2019-01-15] MEDS: ENOXAPARIN SODIUM INJ 40 MG/0.4 ML DISP.SYRIN SUBCUT SCH (09:28)
[2019-01-15] MEDS: TAMSULOSIN HCL 0.4 MG CAP.SR.24H PO SCH (09:29)
[2019-01-15] MEDS: BISACODYL 5 MG TABEC PO SCH (09:29)
[2019-01-15] MEDS: FINASTERIDE 5 MG TABLET PO SCH (09:29)
[2019-01-15] MEDS ORDERED: BISACODYL 5 MG TABEC PO PRN (17:35)
--- NOTE | 2019-01-15 17:37 | PDOC PROGRESS REPORT ---
Subjective Reason For Visit: S/P RIGHT HEMICOLECTOMY FOR COLON CANCER Physical Exam Vital Signs: Temp Pulse Resp BP Pulse Ox 98.0 F 87 17 118/83 97 01/15/19 12:37 01/15/19 12:37 01/15/19 12:37 01/15/19 12:37 01/15/19 12:37 Intake & Output 01/14/19 01/15/19 01/16/19 06:59 06:59 06:59 Intake Total 2655 968 200 Output Total 1970 1340 550 Balance 685 372 -350 Weight 151.7 kg 151.7 kg Results Laboratory Results: 01/12/19 06:30 01/15/19 08:17 01/15/19 08:17 Sodium 138.7 Potassium 4.6 Chloride 104 Carbon Dioxide 29 Anion Gap 6 BUN 20 Creatinine 1.23 Est GFR ( Amer) > 60 Est GFR (Non-Af Amer) 58 L Glucose 106 Calcium 8.2 L Phosphorus 5.1 H Total Bilirubin 0.4 AST 19 ALT 31 Alkaline Phosphatase 73 Total Protein 5.1 L Albumin 2.2 L Prealbumin 13.9 L Impressions: Abdomen X-Ray 12/30/18 06:00 IMPRESSION: Postop ileus. Follow-up is recommended to exclude developing small bowel obstruction. Abdomen/Pelvis CT 01/03/19 08:00 IMPRESSION: Pocket of air adjacent to the surgical anastomosis is smaller than previous. There is no generalize free air. Improved appearance of the small bowel loops. Chest X-Ray 01/07/19 00:00 IMPRESSION: Persistent bandlike atelectasis in the right middle lobe and left retrocardiac region KUB X-Ray 01/09/19 08:00 IMPRESSION: Moderate stool in the transverse colon. Air in borderline distended small bowel loops. Gas and stool in the descending colon and rectosigmoid. Bowel gas pattern likely represents an ileus. Interval placement of Dawson-Su drains and an anterior abdominal wall wound VAC Assessment & Plan - Diagnosis (1) Colon cancer Qualifiers: Colon location: hepatic flexure Qualified Code(s): C18.3 - Malignant n eoplasm of hepatic flexure Is this a current diagnosis for this admission?: Yes - Plan Summary Plan Summary: 73 y/o M s/p washout for fascial dehiscence after right hemicolectomy. Continues to pass large amounts of flatus. He had 2 BM's today. No nausea. Tolerating regular diet. Pt working with PT and is able to stand with assistance. His pain is improving. OOB/PT. Lovenox for DVT proph. Aggressive pulmonary toilet. social media marketing manager for d/c planning. wound VAC changed at bedside yesterday. Wound base is healthy without signs of purulence
[2019-01-16] MEDS: ONDANSETRON HCL INJ/PF 4 MG/2 ML SDV IV PRN (05:54)
[2019-01-16] MEDS: HYDROCODONE/ACETAMINOPHEN 10-325 MG TABLET PO PRN ×3 (05:54→20:31)
[2019-01-16] MEDS: TAMSULOSIN HCL 0.4 MG CAP.SR.24H PO SCH (10:16)
[2019-01-16] MEDS: FINASTERIDE 5 MG TABLET PO SCH (10:16)
[2019-01-16] MEDS: ENOXAPARIN SODIUM INJ 40 MG/0.4 ML DISP.SYRIN SUBCUT SCH (10:16)
[2019-01-16] MEDS: ONDANSETRON 4 MG TAB.RAPDIS PO PRN ×2 (14:41→20:32)
--- NOTE | 2019-01-16 14:57 | PDOC PROGRESS REPORT ---
Subjective Reason For Visit: S/P RIGHT HEMICOLECTOMY FOR COLON CANCER Physical Exam Vital Signs: Temp Pulse Resp BP Pulse Ox 98.5 F 102 H 16 143/76 H 100 01/16/19 11:05 01/16/19 11:05 01/16/19 11:05 01/16/19 11:05 01/16/19 11:05 Intake & Output 01/15/19 01/16/19 01/17/19 06:59 06:59 06:59 Intake Total 968 440 320 Output Total 1340 1050 Balance -372 -610 320 Weight 151.7 kg 151.7 kg Results Laboratory Results: 01/12/19 06:30 01/15/19 08:17 Impressions: Abdomen X-Ray 12/30/18 06:00 IMPRESSION: Postop ileus. Follow-up is recommended to exclude developing small bowel obstruction. Abdomen/Pelvis CT 01/03/19 08:00 IMPRESSION: Pocket of air adjacent to the surgical anastomosis is smaller than previous. There is no generalize free air. Improved appearance of the small bowel loops. Chest X-Ray 01/07/19 00:00 IMPRESSION: Persistent bandlike atelectasis in the right middle lobe and left retrocardiac region KUB X-Ray 01/09/19 08:00 IMPRESSION: Moderate stool in the transverse colon. Air in borderline distended small bowel loops. Gas and stool in the descending colon and rectosigmoid. Bowel gas pattern likely represents an ileus. 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 Continues to pass large amounts of flatus. He is having BM's. No nausea. Tolerating regular diet. Pt working with PT and is able to stand with assistance. His pain is improving. OOB/PT. Lovenox for DVT proph. Aggressive pulmonary toilet. drug abuse social worker for d/c planning. Cont wound VAC. Wound base is healthy without signs of purulence D/c central line. Oral meds only.
[2019-01-17] MEDS: ONDANSETRON 4 MG TAB.RAPDIS PO PRN ×3 (06:26→22:20)
[2019-01-17] MEDS: HYDROCODONE/ACETAMINOPHEN 10-325 MG TABLET PO PRN ×3 (06:26→22:20)
--- NOTE | 2019-01-17 09:20 | PDOC PROGRESS REPORT ---
Subjective Progress Note for:: 01/17/19 Reason For Visit: S/P RIGHT HEMICOLECTOMY FOR COLON CANCER Physical Exam Vital Signs: Temp Pulse Resp BP Pulse Ox 98.5 F 79 20 137/68 H 98 01/17/19 00:05 01/17/19 00:05 01/17/19 00:05 01/17/19 00:05 01/17/19 00:05 Intake & Output 01/16/19 01/17/19 01/18/19 06:59 06:59 06:59 Intake Total 440 796 Output Total 1050 800 Balance -610 -4 Weight 151.7 kg 151.6 kg Results Laboratory Results: 01/12/19 06:30 01/15/19 08:17 Impressions: Abdomen X-Ray 12/30/18 06:00 IMPRESSION: Postop ileus. Follow-up is recommended to exclude developing small bowel obstruction. Abdomen/Pelvis CT 01/03/19 08:00 IMPRESSION: Pocket of air adjacent to the surgical anastomosis is smaller than previous. There is no generalize free air. Improved appearance of the small bowel loops. Chest X-Ray 01/07/19 00:00 IMPRESSION: Persistent bandlike atelectasis in the right middle lobe and left retrocardiac region KUB X-Ray 01/09/19 08:00 IMPRESSION: Moderate stool in the transverse colon. Air in borderline distended small bowel loops. Gas and stool in the descending colon and rectosigmoid. Bowel gas pattern likely represents an ileus. 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 Continues to pass large amounts of flatus. He is having BM's. No nausea. Tolerating regular diet. Pt working with PT and is able to stand with assistance. His pain is improving. OOB/PT. Lovenox for DVT proph. Aggressive pulmonary toilet. social worker delinquency prevention for d/c planning. Cont wound VAC for now. VAC changed at bedside today. Wound base with good granulation present D/c MIREYA drains.
[2019-01-17] MEDS: ENOXAPARIN SODIUM INJ 40 MG/0.4 ML DISP.SYRIN SUBCUT SCH (10:52)
[2019-01-17] MEDS: FINASTERIDE 5 MG TABLET PO SCH (10:53)
[2019-01-17] MEDS: TAMSULOSIN HCL 0.4 MG CAP.SR.24H PO SCH (10:53)
--- NOTE | 2019-01-18 10:06 | PDOC PROGRESS REPORT ---
Subjective Progress Note for:: 01/18/19 Subjective:: no c/o Reason For Visit: S/P RIGHT HEMICOLECTOMY FOR COLON CANCER Physical Exam Vital Signs: Temp Pulse Resp BP Pulse Ox 98.6 F 85 16 123/73 98 01/18/19 08:08 01/18/19 08:08 01/18/19 08:08 01/18/19 08:08 01/18/19 08:08 Intake & Output 01/17/19 01/18/19 01/19/19 06:59 06:59 06:59 Intake Total 796 1032 Output Total 800 1250 Balance -4 -218 Weight 151.6 kg 152.2 kg General appearance: PRESENT: no acute distress Respiratory exam: PRESENT: clear to auscultation darlene Cardiovascular exam: PRESENT: RRR GI/Abdominal exam: PRESENT: soft, other - incision midline covered with WoundVac Results Laboratory Results: 01/12/19 06:30 01/15/19 08:17 Impressions: Abdomen X-Ray 12/30/18 06:00 IMPRESSION: Postop ileus. Follow-up is recommended to exclude developing small bowel obstruction. Abdomen/Pelvis CT 01/03/19 08:00 IMPRESSION: Pocket of air adjacent to the surgical anastomosis is smaller than previous. There is no generalize free air. Improved appearance of the small bowel loops. Chest X-Ray 01/07/19 00:00 IMPRESSION: Persistent bandlike atelectasis in the right middle lobe and left retrocardiac region KUB X-Ray 01/09/19 08:00 IMPRESSION: Moderate stool in the transverse colon. Air in borderline distended small bowel loops. Gas and stool in the descending colon and rectosigmoid. Bowel gas pattern likely represents an ileus. 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 No further plans.
[2019-01-18] MEDS: ENOXAPARIN SODIUM INJ 40 MG/0.4 ML DISP.SYRIN SUBCUT SCH (10:47)
[2019-01-18] MEDS: FINASTERIDE 5 MG TABLET PO SCH (10:48)
[2019-01-18] MEDS: HYDROCODONE/ACETAMINOPHEN 10-325 MG TABLET PO PRN ×2 (10:48→22:32)
[2019-01-18] MEDS: TAMSULOSIN HCL 0.4 MG CAP.SR.24H PO SCH (10:48)
[2019-01-18] MEDS: ONDANSETRON 4 MG TAB.RAPDIS PO PRN ×2 (10:49→22:32)
[2019-01-19] MEDS: ENOXAPARIN SODIUM INJ 40 MG/0.4 ML DISP.SYRIN SUBCUT SCH (09:17)
[2019-01-19] MEDS: TAMSULOSIN HCL 0.4 MG CAP.SR.24H PO SCH (09:17)
[2019-01-19] MEDS: FINASTERIDE 5 MG TABLET PO SCH (09:17)
[2019-01-19 15:40] LABS: ALANINE AMINOTRANSFERASE 17 U/L (21-72); ALBUMIN 2.6 g/dL (3.5-5.0); ALKALINE PHOSPHATASE 85 U/L (38-126); ANION GAP 7 (5-19); ASPARTATE AMINO TRANSFERASE 15 U/L (17-59); BILIRUBIN,DIRECT 0.3 mg/dL (0.0-0.4); BILIRUBIN,TOTAL 0.5 mg/dL (0.2-1.3); BLOOD UREA NITROGEN 11 mg/dL (7-20); CALCIUM 8.4 mg/dL (8.4-10.2); CARBON DIOXIDE 27 mmol/L (22-30); CHLORIDE 105 mmol/L (98-107); GLUCOSE 103 mg/dL (75-110); PHOSPHORUS 4.3 mg/dL (2.5-4.5); POTASSIUM 4.1 mmol/L (3.6-5.0); SODIUM 138.8 mmol/L (137-145); TOTAL PROTEIN 5.7 g/dL (6.3-8.2)
[2019-01-19 15:47] LABS: PREALBUMIN 14.8 mg/dL (17.6-36.0)
--- NOTE | 2019-01-19 19:14 | PDOC PROGRESS REPORT ---
Subjective Progress Note for:: 01/19/19 Reason For Visit: S/P RIGHT HEMICOLECTOMY FOR COLON CANCER Physical Exam Vital Signs: Temp Pulse Resp BP Pulse Ox 98.4 F 95 16 139/81 H 98 01/19/19 16:43 01/19/19 16:43 01/19/19 16:43 01/19/19 16:43 01/19/19 16:43 Intake & Output 01/18/19 01/19/19 01/20/19 06:59 06:59 06:59 Intake Total 1032 1657 1049 Output Total 1250 1400 950 Balance -218 257 99 Weight 152.2 kg 152.7 kg Results Laboratory Results: 01/12/19 06:30 01/19/19 14:55 01/19/19 14:55 Sodium 138.8 Potassium 4.1 Chloride 105 Carbon Dioxide 27 Anion Gap 7 BUN 11 Creatinine 1.22 Est GFR ( Amer) > 60 Est GFR (Non-Af Amer) 58 L Glucose 103 Calcium 8.4 Phosphorus 4.3 Total Bilirubin 0.5 AST 15 L ALT 17 L Alkaline Phosphatase 85 Total Protein 5.7 L Albumin 2.6 L Prealbumin 14.8 L Impressions: Abdomen X-Ray 12/30/18 06:00 IMPRESSION: Postop ileus. Follow-up is recommended to exclude developing small bowel obstruction. Abdomen/Pelvis CT 01/03/19 08:00 IMPRESSION: Pocket of air adjacent to the surgical anastomosis is smaller than previous. There is no generalize free air. Improved appearance of the small francoise wel loops. Chest X-Ray 01/07/19 00:00 IMPRESSION: Persistent bandlike atelectasis in the right middle lobe and left retrocardiac region KUB X-Ray 01/09/19 08:00 IMPRESSION: Moderate stool in the transverse colon. Air in borderline disten ded small bowel loops. Gas and stool in the descending colon and rectosigmoid. Bowel gas pattern likely represents an ileus. 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 Continues to pass flatus. He is having BM's. No nausea. Tolerating regular diet. Pt working with PT and is able to stand and walk with assistance. His pain is improving. OOB/PT. Lovenox for DVT proph. Aggressive pulmonary toilet. social scientist for d/c planning. Cont wound VAC for now. VAC changed at bedside Saturday. Wound base with good granulation present
[2019-01-19] MEDS: HYDROCODONE/ACETAMINOPHEN 10-325 MG TABLET PO PRN (21:40)
[2019-01-20] MEDS: HYDROCODONE/ACETAMINOPHEN 10-325 MG TABLET PO PRN ×2 (07:50→22:08)
[2019-01-20] MEDS: ONDANSETRON 4 MG TAB.RAPDIS PO PRN (07:50)
[2019-01-20] MEDS: FINASTERIDE 5 MG TABLET PO SCH (09:02)
[2019-01-20] MEDS: TAMSULOSIN HCL 0.4 MG CAP.SR.24H PO SCH (09:02)
[2019-01-20] MEDS: ENOXAPARIN SODIUM INJ 40 MG/0.4 ML DISP.SYRIN SUBCUT SCH (09:02)
--- NOTE | 2019-01-20 19:42 | PDOC PROGRESS REPORT ---
Subjective Reason For Visit: S/P RIGHT HEMICOLECTOMY FOR COLON CANCER Physical Exam Vital Signs: Temp Pulse Resp BP Pulse Ox 98.2 F 91 18 129/75 H 96 01/20/19 16:00 01/20/19 16:00 01/20/19 16:00 01/20/19 16:00 01/20/19 16:00 Intake & Output 01/19/19 01/20/19 01/21/19 06:59 06:59 06:59 Intake Total 1657 1269 650 Output Total 1400 1400 900 Balance 257 -131 -250 Weight 152.7 kg 153.2 kg Results Laboratory Results: 01/12/19 06:30 01/19/19 14:55 01/19/19 14:55 Triglycerides 124 Impressions: Abdomen X-Ray 12/30/18 06:00 IMPRESSION: Postop ileus. Follow-up is recommended to exclude developing small bowel obstruction. Abdomen/Pelvis CT 01/03/19 08:00 IMPRESSION: Pocket of air adjacent to the surgical anastomosis is smaller than previous. There is no generalize free air. Improved appearance of the small bowel loops. Chest X-Ray 01/07/19 00:00 IMPRESSION: Persistent bandlike atelectasis in the right middle lobe and left retrocardiac region KUB X-Ray 01/09/19 08:00 IMPRESSION: Moderate stool in the transverse colon. Air in borderline distended small bowel loops. Gas and stool in the descending colon and rectosigmoid. Bowel gas pattern likely represents an ileus. 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 Continues to pass flatus. He is having BM's. No nausea. Tolerating regular diet. Pt working with PT and is able to stand and walk with assistance. His pain is improving. OOB/PT. Lovenox for DVT proph. Aggressive pulmonary toilet. drug abuse social worker for d/c planning. Cont wound VAC for now. VAC changed at bedside Saturday. Wound base with good granulation present. Will change VAC tomorrow.
[2019-01-20] MEDS ORDERED: BISACODYL 10 MG SUPP.RECT PR ONE (22:00)
[2019-01-21] MEDS: FINASTERIDE 5 MG TABLET PO SCH (10:41)
[2019-01-21] MEDS: TAMSULOSIN HCL 0.4 MG CAP.SR.24H PO SCH (10:41)
[2019-01-21] MEDS: ENOXAPARIN SODIUM INJ 40 MG/0.4 ML DISP.SYRIN SUBCUT SCH (10:41)
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
[2019-01-21] MEDS: HYDROCODONE/ACETAMINOPHEN 10-325 MG TABLET PO PRN (12:04)
--- NOTE | 2019-01-21 18:00 | PDOC DISCHARGE SUMMARY ---
General - Admit/Disc Date/PCP Admission Date/Primary Care Provider: 12/25/18 05:31 SHAYLA HAYES MD Discharge Date: 01/21/19 - Discharge Diagnosis (1) Colon cancer Is this a current diagnosis for this admission?: Yes - Additional Information Resuscitation Status: Full Code Home Medications: Ascorbic Acid [Vitamin C 500 mg Tablet] 500 mg PO DAILY 10/19/18 Aspirin [Ecotrin 81 mg EC Tablet] 81 mg PO DAILY 10/19/18 Atorvastatin Calcium [Lipitor 20 mg Tablet] 20 mg PO QHS 10/19/18 Cartilage/Collagen/Bor/Hyalur [Move Free Ultra Tablet] 1 each PO BID 10/19/18 Cetirizine HCl [Aller-Benton] 1 tab PO DAILY 10/19/18 Cholecalciferol (Vitamin D3) [Vitamin D3 1000 Unit Tablet] 1,000 unit PO DAILY 10/19/18 Dabigatran Etexilate Mesylate [Pradaxa 150 mg Capsule] 150 mg PO Q12 10/19/18 Finasteride [Proscar] 5 mg PO DAILY 10/19/18 Flaxseed Oil [Flax Seed Oil] 1,000 mg PO DAILY 10/19/18 Fluticasone Propionate [Flonase Nasal [place] 50 Mcg/[place] 16 gm] 2 sprays NASL DAILY 10/19/18 Hydrocodone/Acetaminophen [[place] 10-325 mg Tablet] 1 tab PO DAILY 10/19/18 Losartan/Hydrochlorothiazide [Hyzaar 100-12.5 Tablet] 1 each PO DAILY 10/19/18 Multivitamin [Multiple Vitamins] 1 each PO DAILY 10/19/18 [place]-3 Fatty Acids/Fish Oil [Fish Oil 1,000 Mg Capsule] 4 each PO DAILY 10/19/18 Omeprazole 40 mg PO DAILY 10/19/18 Tamsulosin HCl [Flomax 0.4 mg Cap.sr] 0.4 mg PO DAILY 10/19/18 Melatonin 1 dose PO QHS 12/18/18 History of Present Illness History of Present Illness: STAN SANCHEZ is a 73 year old male admitted for right hemicolectomy due to colon cancer. The patient was taken to the operating room where laparoscopic converted to open right hemicolectomy was performed. An open operation was r equired due to the patient's intolerance of pneumoperitoneum. Patient underwent the operation, and tolerated it very well. He was taken to the floor in stable condition. Hospital Course Hospital Course: The patient was taken to the floor in stable condition after open right hemicolectomy. The patient developed a postoperative ileus with nausea and vomi ting at approximately postop day 5. On postoperative day #[address] scanning showing a small amount of perianastomotic air without obvious evidence of free intraperitoneal perforation. The patient was started on antibiotics and treated for a contained perianastomotic leak. Patient was doing reasonably well from this. On 01/06/19 when he was ambulating and getting in the shower when he began having bleeding from the wound. The patient was found to have a fascial dehiscence, requiring reoperation with implantation of Vicryl mesh. The patient had a wound VAC placed at that time. After his fascial dehiscence was addressed, the patient slowly improved. He began tolerating a diet, his wound was closing and healing well, and by 01/21/2019 he had reached maximal hospital benefit and was fit for discharge. Patient will be discharged home with home health for midline dressing changes and home physical therapy. Physical Exam Vital Signs: Temp Pulse Resp BP Pulse Ox 98.4 F 86 16 144/73 H 99 01/21/19 11:57 01/21/19 14:00 01/21/19 11:57 01/21/19 11:57 01/21/19 11:57 Intake & Output 01/20/19 01/21/19 01/22/19 06:59 06:59 06:59 Intake Total 1269 800 Output Total 1400 1325 Balance -131 -525 Weight 153.2 kg 141.9 kg Results Laboratory Results: 01/12/19 06:30 01/19/19 14:55 Impressions: Abdomen X-Ray 12/30/18 06:00 IMPRESSION: Postop ileus. Follow-up is recommended to exclude developing small bowel obstruction. Abdomen/Pelvis CT 01/03/19 08:00 IMPRESSION: Pocket of air adjacent to the surgical anastomosis is smaller than previous. There is no generalize free air. Improved appearance of the small bowel loops. Chest X-Ray 01/07/19 00:00 IMPRESSION: Persistent bandlike atelectasis in the right middle lobe and left retrocardiac region KUB X-Ray 01/09/19 08:00 IMPRESSION: Moderate stool in the transverse colon. Air in borderline distended small bowel loops. Gas and stool in the descending colon and rectosigmoid. Bowel gas pattern likely represents an ileus. Interval placement of Dawson-Su drains and an anterior abdominal wall wound VAC Qualifiers - * PATIENT BEING DISCHARGED WITH ANY OF THE FOLLOWING DIAGNOSIS: No Plan Discharge Plan: Discharge home. Diet as tolerated. Activity: No lifting greater than 10 pounds. Follow-up with me in 1 week at [facility]. Ultram 50 mg p.o. every 6 hours as needed for pain. Okay to shower. No tub baths or swimming pools until midline wound is healed. Time Spent: Less than 30 Minutes
[2019-01-21 18:18] VITALS: BP 141/84
== END 2019-01-21 18:36 | disposition home or self-care (01) | DRG 330 ==
LOC: INOR 05:31 → 3W 13:14 → ICU 01-05 22:56 → 4N 01-12 07:29
PROVIDERS: ADMIT Surgery; ATTEND Surgery
PROC: 0DTF0ZZ Resection of Right Large Intestine, Open Approach (ICD-10-PCS; principal; 2018-12-25 07:30)
PROC: 02HV33Z Insertion of Infusion Device into Superior Vena Cava, Percutaneous Approach (ICD-10-PCS; 2019-01-03)
PROC: B548ZZA Ultrasonography of Superior Vena Cava, Guidance (ICD-10-PCS; 2019-01-03)
PROC: 0JB80ZZ Excision of Abdomen Subcutaneous Tissue and Fascia, Open Approach (ICD-10-PCS; 2019-01-05)
PROC: 0WUF0JZ Supplement Abdominal Wall with Synthetic Substitute, Open Approach (ICD-10-PCS; 2019-01-05)
PROC: 2W13X6Z Compression of Abdominal Wall using Pressure Dressing (ICD-10-PCS; 2019-01-05)
PROC: 2W03X6Z Change Pressure Dressing on Abdominal Wall (ICD-10-PCS; 2019-01-07)
PROC: 2W03X6Z Change Pressure Dressing on Abdominal Wall (ICD-10-PCS; 2019-01-10)
DX: C18.3 Malignant neoplasm of hepatic flexure (principal); T81.32XA Disruption of internal operation (surgical) wound, not elsewhere classified, initial encounter; Z53.31 Laparoscopic surgical procedure converted to open procedure; I48.91 Unspecified atrial fibrillation; G89.29 Other chronic pain; K21.9 Gastro-esophageal reflux disease without esophagitis; N40.0 Benign prostatic hyperplasia without lower urinary tract symptoms; I10 Essential (primary) hypertension; E78.00 Pure hypercholesterolemia, unspecified; Z79.82 Long term (current) use of aspirin; Z79.899 Other long term (current) drug therapy
CPT/HCPCS: 00790; 36415; 71045; 71046; 74018; 74019; 74176; 74177; 80048; 80053; 80202; 82947; 82962; 83735; 84100; 84132; 84134; 84478; 85025; 85027; 85610; 85730; 86850; 86900; 86901; 87070; 87075; 87077; 87186; 87205; 88309; 93005; 93010; 94002; 94003; 94799; C1751; C1781; C9290; J0131; J0330; J0610; J0694; J0744; J1100; J1170; J1650; J1741; J1815; J1885; J1940; J2250; J2270; J2405; J2550; J2704; J3010; J3370; J3480; J3490; J7030; J7040; J7050; J7060; S0028; S0119; S0164

== ENCOUNTER → 2019-12-08 | Outpatient (CLI) | payer MEDICARE ==
[2019-12-08 12:21] LABS: ABSOLUTE BASOPHILS # (AUTO) 0.1 10^3/uL (0.0-0.2); ABSOLUTE EOSINOPHILS # (AUTO) 0.1 10^3/uL (0.0-0.6); ABSOLUTE LYMPHOCYTES (AUTO) 1.5 10^3/uL (0.5-4.7); ABSOLUTE MONOCYTES (AUTO) 0.7 10^3/uL (0.1-1.4); ABSOLUTE NEUT (AUTO) 5.7 10^3/uL (1.7-8.2); BASOPHILS % (AUTO) 1.1 % (0-2); EOSINOPHILS % (AUTO) 1.1 % (0-6); HEMATOCRIT 43.3 % (37.9-51.0); HEMOGLOBIN 14.3 g/dL (13.5-17.0); LYMPHOCYTES % (AUTO) 18.7 % (13-45); MEAN CORPUSCULAR HEMOGLOBIN 26.9 pg (27.0-33.4); MEAN CORPUSCULAR VOLUME 82 fl (80-97); MONOCYTES % (AUTO) 8.1 % (3-13); PLATELET COUNT 239 10^3/uL (150-450); RED BLOOD COUNT 5.32 10^6/uL (4.35-5.55); RED CELL DISTRIBUTION WIDTH 17.6 % (11.5-14.0); TOTAL CELLS COUNTED % (AUTO) 100 %; WHITE BLOOD COUNT 8.1 10^3/uL (4.0-10.5)
[2019-12-08 12:42] LABS: ALBUMIN 3.9 g/dL (3.5-5.0); ALKALINE PHOSPHATASE 75 U/L (38-126); ANION GAP 7 (5-19); ASPARTATE AMINO TRANSFERASE 24 U/L (17-59); BILIRUBIN,DIRECT 0.3 mg/dL (0.0-0.4); BILIRUBIN,TOTAL 0.7 mg/dL (0.2-1.3); BLOOD UREA NITROGEN 22 mg/dL (7-20); CALCIUM 9.7 mg/dL (8.4-10.2); CARBON DIOXIDE 28 mmol/L (22-30); CHLORIDE 103 mmol/L (98-107); GLUCOSE 158 mg/dL (75-110); TOTAL PROTEIN 7.2 g/dL (6.3-8.2)
[2019-12-08 12:43] LABS: C-REACTIVE PROTEIN < 5.0 mg/L (<10.0)
[2019-12-08 13:09] LABS: ERYTHROCYTE SEDIMENTATION RATE 3 mm/hr (0-20)
--- NOTE | 2019-12-08 13:34 | RADIOLOGY REPORT (SQ) ---
EXAM DESCRIPTION: FOOT LEFT COMPLETE COMPLETED DATE/TIME: 12/08/2019 12:09 pm REASON FOR STUDY: NON-PRS CHRONIC ULCER OTH PRT LEFT FOOT W FAT LAYER EXPOSED L97.522 NON-PRS CHRON IC ULCER OTH PRT LEFT FOOT W FAT LAYER COMPARISON: None. NUMBER OF VIEWS: Three views. TECHNIQUE: AP, lateral and oblique radiographic images acquired of the left foot. LIMITATIONS: None. FINDINGS: MINERALIZATION: Normal. BONES: No acute fracture or dislocation. Small plantar calcaneal spur. JOINTS: No effusions. SOFT TISSUES: 2 cm diameter plantar soft tissue ulcer left great toe, with radiopaque ointment. OTHER: No other significant finding. IMPRESSION: Soft tissue ulcer plantar left great toe. No bony changes worrisome for osteomyelitis TECHNICAL DOCUMENTATION: JOB ID: [id number] [employer]- All Rights Reserved Reading location - IP/workstation name: [email or web address]
== END ==
LOC: WC 11:26
PROVIDERS: ATTEND Nurse Practitioner Family
DX: L97.522 Non-pressure chronic ulcer of other part of left foot with fat layer exposed (principal)
CPT/HCPCS: 36415; 80053; 85025; 85652; 86140

== ENCOUNTER → 2019-12-16 | Outpatient (CLI) | payer MEDICARE ==
--- NOTE | 2019-12-17 12:15 | XCELERA REPORT ---
[address] [address] Lower Extremity Arterial Evaluation Name: STAN SANCHEZ Age: 73 yrs Gender: Male : 1945 Patient Status: Outpatient Patient Location: Study Date: 12/16/2019 01:14 PM Procedure: A color flow and duplex scan of the lower extremity arteries was performed bilaterally with velocity and waveform anaylsis. Ankle brachial indicies performed. Reason For Study: LT FOOT ULCER Ordering Physician: RUBEN ADLER Performed By: Jason Qiu Measurements and Calculations Right Left COOKING APPLIANCE REPAIR TECHNICIAN PSV 136.2 118.7 cm/sec Prox PFA PSV -86.6 57.5 cm/sec Prox SFA PSV 125.7 134.6 cm/sec Mid SFA PSV -104.5 -94.9 cm/sec Dist SFA PSV -88.7 -98.1 cm/sec Prox Pop A PSV 108.9 78.9 cm/sec Dist Pop A PSV -76.6 -91.5 cm/sec Dist CIELO PSV 100.6 79.1 cm/sec Dist ASBESTOS CEMENT SHEET SUPERVISOR PSV 142.5 132.8 cm/sec Shlomo Pedis PSV 63.9 25.5 cm/sec Right Side Arterial Evaluation Normal velocity and triphasic waveforms noted from the Common Femoral artery to the infrageniculate vessels . Ankle Brachial index 1.06. Left Side Arterial Evaluation Normal velocity and triphasic waveforms noted from the Common Femoral artery to the infrageniculate vessels . Ankle Brachial index 1.03. Interpretation Summary No hemodynamically significant lesions in the bilateral lower extremities, on duplex imaging, at rest. ARMANDO's are normal, suggesting that there are no significant obstructive arterial findings in the lower extremities. : RUBEN ADLER > Sourav Weinberg
== END ==
LOC: SP 12:46
PROVIDERS: ATTEND Nurse Practitioner Family
DX: L97.522 Non-pressure chronic ulcer of other part of left foot with fat layer exposed (principal)
CPT/HCPCS: 93922; 93925

== ENCOUNTER → 2020-02-02 | Outpatient (CLI) | payer MEDICARE ==
[2020-02-02 12:02] LABS: ABSOLUTE BASOPHILS # (AUTO) 0.1 10^3/uL (0.0-0.2); ABSOLUTE EOSINOPHILS # (AUTO) 0.1 10^3/uL (0.0-0.6); ABSOLUTE LYMPHOCYTES (AUTO) 0.8 10^3/uL (0.5-4.7); ABSOLUTE MONOCYTES (AUTO) 0.6 10^3/uL (0.1-1.4); ABSOLUTE NEUT (AUTO) 6.4 10^3/uL (1.7-8.2); BASOPHILS % (AUTO) 0.9 % (0-2); EOSINOPHILS % (AUTO) 0.7 % (0-6); HEMOGLOBIN 14.8 g/dL (13.5-17.0); LYMPHOCYTES % (AUTO) 10.3 % (13-45); MEAN CORPUSCULAR HEMOGLOBIN 27.9 pg (27.0-33.4); MEAN CORPUSCULAR HGB CONC 33.6 g/dL (32.0-36.0); MEAN CORPUSCULAR VOLUME 83 fl (80-97); MONOCYTES % (AUTO) 7.8 % (3-13); PLATELET COUNT 237 10^3/uL (150-450); RED CELL DISTRIBUTION WIDTH 16.6 % (11.5-14.0); SEGMENTED NEUTROPHILS % (AUTO) 80.3 % (42-78); TOTAL CELLS COUNTED % (AUTO) 100 %
[2020-02-02 12:33] LABS: ALBUMIN 4.1 g/dL (3.5-5.0); ALKALINE PHOSPHATASE 72 U/L (38-126); ANION GAP 11 (5-19); ASPARTATE AMINO TRANSFERASE 21 U/L (17-59); BILIRUBIN,DIRECT 0.3 mg/dL (0.0-0.4); BILIRUBIN,TOTAL 0.9 mg/dL (0.2-1.3); BLOOD UREA NITROGEN 30 mg/dL (7-20); C-REACTIVE PROTEIN 11.1 mg/L (<10.0); CALCIUM 9.6 mg/dL (8.4-10.2); CARBON DIOXIDE 26 mmol/L (22-30); CHLORIDE 101 mmol/L (98-107); GLUCOSE 170 mg/dL (75-110); POTASSIUM 4.6 mmol/L (3.6-5.0); TOTAL PROTEIN 7.5 g/dL (6.3-8.2)
[2020-02-02 12:42] LABS: ERYTHROCYTE SEDIMENTATION RATE 10 mm/hr (0-20)
--- NOTE | 2020-02-02 13:03 | RADIOLOGY REPORT (SQ) ---
EXAM DESCRIPTION: FOOT LEFT COMPLETE COMPLETED DATE/TIME: 02/02/2020 11:38 am REASON FOR STUDY: NON-PRS CHRONIC ULCER OTH PRT LEFT FOOT W FAT LAYER EXPOSED COMPARISON: None. NUMBER OF VIEWS: Three views left foot LIMITATIONS: None. FINDINGS: There is no acute or significant bone, joint or soft tissue abnormality. No bone destruct ion detected in the region of interest. OTHER: Osteopenic. IMPRESSION: Osteopenic. No aggressive bone resorption to suggest osteomyelitis. TECHNICAL DOCUMENTATION: JOB ID: [id number] Reading location - IP/workstation name: [email or web address]
== END ==
LOC: WC 11:16
PROVIDERS: ATTEND Nurse Practitioner Family
DX: L97.522 Non-pressure chronic ulcer of other part of left foot with fat layer exposed (principal)
CPT/HCPCS: 36415; 80053; 85025; 85652; 86140